=== PATIENT | female | born 1950 | race Caucasian/White ===

== ENCOUNTER 2018-06-26 16:21 | Emergency (ER) | payer OTHER ==
[2018-06-26 16:29] VITALS: BP 146/86; PULSE 106; TEMP 98.1; BMI 44.2
--- NOTE | 2018-06-26 16:38 | PDOC ---
Rapid Medical Evaluation Chief Complaint: Vaginal Bleeding Time Seen by Provider: 06/26/18 16:26 Medical Evaluation: Allergies Allergy/AdvReac Type Severity Reaction Status Date / Time No Known Allergies Allergy Verified 06/26/18 16:26 06/26/18 16:27 67 year old female with vaginal bleeding x 2.5 months send by women 2 women [facility] send for evaluation Pe: patient alert ox3 A: vaginal bleeding P: cbc cmp pt ptt TVUS type and screen patient to the er for further management of care. Discharge Disposition - Diagnosis Vaginal bleeding - Referrals - Patient Instructions - Post Discharge Activity
[2018-06-26 17:02] LABS: BASO % 1.6 % (0-2.0); EOS % 0.7 % (0-4.5); HEMATOCRIT 35.1 % (32.4-45.2); HEMOGLOBIN 11.6 GM/dL (10.7-15.3); LYMPH % 31.3 % (8-40); MCH 27.8 pg (25.7-33.7); MCHC 33.1 g/dl (32.0-36.0); MEAN CELL VOLUME 84.1 fl (80-96); MEAN PLT VOLUME 9.1 fl (7.5-11.1); MONO % 7.5 % (3.8-10.2); NEUT % 58.9 % (42.8-82.8); PLATELET COUNT 295 K/MM3 (134-434); RBC 4.18 M/mm3 (3.60-5.2); RDW 15.4 % (11.6-15.6)
[2018-06-26 17:16] LABS: INR 1.06 (0.83-1.09); PROTHROMBIN TIME (PATIENT) 12.5 SEC (9.7-13.0)
[2018-06-26 17:19] LABS: ACTIVATED PTT 37.5 SECONDS (25.2-36.5)
[2018-06-26 17:27] LABS: ALBUMIN 3.5 g/dl (3.4-5.0); ALK PHOS 64 U/L (45-117); ANION GAP 8 MMOL/L (8-16); BILIRUBIN,TOTAL 0.8 mg/dL (0.2-1); BLOOD UREA NITROGEN 13 mg/dL (7-18); CALCIUM 8.7 mg/dL (8.5-10.1); CHLORIDE 107 mmol/L (98-107); CO2 25 mmol/L (21-32); CREATININE 0.8 mg/dL (0.55-1.3); GLUCOSE,RANDOM 83 mg/dL (74-106); POTASSIUM 4.2 mmol/L (3.5-5.1); SGOT/AST 32 U/L (15-37); SGPT/ALT 31 U/L (13-61); SODIUM 141 mmol/L (136-145); TOT PROT 7.3 g/dl (6.4-8.2)
--- NOTE | 2018-06-26 17:49 | PDOC ---
History of Present Illness - General Chief Complaint: Vaginal Bleeding Stated Complaint: PCP SENT/ABD PAIN/VAG BLEEDING Time Seen by Provider: 06/26/18 16:26 History Source: Patient Exam Limitations: No Limitations - History of Present Illness Initial Comments: 06/26/18 17:40 67 yo female pmh of DVT (not on ASA or AC) and HTN presents to the ED with 2.5 months of vaginal bleeding. Pt states she has had constant BRB and clots with 5 pads per day over the last 2.5 months along with lightheadedness and diffuse abdominal pain. Pt presents from [facility] (Dr. Tubbs[facility] clinic after discussion of symptoms, was sent to ED for further workup. Pt states the abdominal pain is diffuse, constant, non radiating, made worse with movement. Pt states over the last 4 days she has noted blood dripping during showers. Denies hx of STD, Past History - Past Medical History Allergies/Adverse Reactions: Allergies Allergy/AdvReac Type Severity Reaction Status Date / Time No Known Allergies Allergy Verified 06/26/18 16:26 Home Medications: Ambulatory Orders NK [No Known Home Medication] 06/26/18 COPD: No HTN: Yes - Immunization History Immunization Up to Date: Yes - Suicide/Smoking/Psychosocial Hx Smoking History: Never smoked Hx Alcohol Use: No Drug/Substance Use Hx: No *Physical Exam - Vital Signs Last Vital Signs Temp Pulse Resp BP Pulse Ox 98.1 F 106 H 18 146/86 95 06/26/18 16:27 06/26/18 16:27 06/26/18 16:27 06/26/18 16:27 06/26/18 16:27 ED Treatment Course - LABORATORY CBC & Chemistry Diagram: 06/26/18 16:41 06/26/18 16:41 - ADDITIONAL ORDERS Additional order review: Laboratory Results 06/26/18 06/26/18 16:41 16:41 PT with INR 12.50 INR 1.06 PTT (Actin FS) 37.5 H Sodium 141 Potassium 4.2 Chloride 107 Carbon Dioxide 25 Anion Gap 8 BUN 13 Creatinine 0.8 Creat Clearance w eGFR 71.99 Random Glucose 83 Calcium 8.7 Total Bilirubin 0.8 AST 32 ALT 31 Alkaline Phosphatase 64 Total Protein 7.3 Albumin 3.5 06/26/18 16:41 RBC 4.18 MCV 84.1 MCHC 33.1 RDW 15.4 MPV 9.1 Neutrophils % 58.9 Lymphocytes % 31.3 Monocytes % 7.5 Eosinophils % 0.7 Basophils % 1.6 *DC/Admit/Observation/Transfer Diagnosis at time of Disposition: Vaginal bleeding - Discharge Dispostion Disposition: HOME Condition at time of disposition: Stable Decision to Admit order: No - Referrals Referrals: Ofelia Gilbert DO [Staff Physician] - - Patient Instructions Printed Discharge Instructions: DI for Vaginal Bleeding Additional Instructions: Dr. Gilbert is expecting you in office at 9 am 06/27/2018 for further care and likely biopsy. Dr. Gilbert also sent antibiotics and Motrin for pain control. Return to the ER for new or concerning symptoms including but not limited to: continued light headedness, loss of consciousness, excessive bleeding, excessive pain or high fevers. Thank you - Post Discharge Activity
--- NOTE | 2018-06-26 18:46 | PDOC ---
Documentation entered by Jack Can SCRIBE, acting as scribe for Julissa Alfonso DO. Julissa Alfonso DO: This documentation has been prepared by the Pamella newman Nirvannie, SCRIBE, under my direction and personally reviewed by me in its entirety. I confirm that the documentation accurately reflects all work, treatment, procedures, and medical decision making performed by me. Attending Attestation - Resident Resident Name: Charanjit Hoyt - ED Attending Attestation I have performed the following: I have examined & evaluated the patient, The case was reviewed & discussed with the resident, I agree w/resident's findings & plan - HPI HPI: 06/26/18 19:20 The patient is a 67 year old female, with a significant past medical history of DVT (not on AC) and HTN, who presents to the emergency department with, 2.5 months of worsening vaginal bleeding (bright red, 5 pads/day) with new onset of clotting and weakness. As per patient, she was seen by her [facility] Dr. Barbara CHAVEZ at which time she was advised to report to the ED for further evaluation. She denies recent fevers or chills. She denies recent nausea, vomit, diarrhea or constipation. She denies recent dysuria, frequency, urgency or hematuria. She denies recent chest pain or shortness of breath. Allergies: NKDA Familial History: Breast cancer (normal annual mammograms). - Physicial Exam PE: 06/26/18 19:20 Constitutional: Awake, alert, oriented. No acute distress. Head: Normocephalic. Atraumatic Eyes: PERRL. EOMI. Conjunctivae are not pale. ENT: Mucous membranes are moist and intact. Posterior pharynx without exudates or erythema. Uvula midline. Neck: Supple. Full ROM. No lymphadenopathy. Cardiovascular: Regular rate. Regular rhythm. S1, S2 regular. Distal pulses are 2+ and symmetric. Pulmonary/Chest: No evidence of respiratory distress. Clear to auscultation bilaterally No wheezing, rales or rhonchi. Abdominal: +Diffuse suprapubic tenderness. Soft and non-distended. No rebound , guarding or rigidity. No organomegaly. No palpable masses. Good bowel sounds. : +Diffuse pelvic tenderness on internal vaginal exam. Back: No CVA tenderness. Musculoskeletal: No edema. No cyanosis. No clubbing. Full range of motion in all extremities. No calf tenderness. Radial/pedal pulses are intact and 2+ bilaterally Skin: Skin is warm and dry. No petechiae. No purpura. Neurological: Alert and oriented to person, place, and time. Cranial nerves II -XII are grossly intact. Normal speech. Strength is grossly symmetric. No sensory deficits. Psychiatric: Good eye contact. Normal interaction, affect and behavior. - Medical Decision Making 06/26/18 18:38 I, Dr. Julissa Alfonso, DO, attest that this document has been prepared under my direction and personally reviewed by me in its entirety. I further attest, that it accurately reflects all work, treatment, procedures and medical decision -making performed by me. 06/26/18 18:38 a/p: 67yo female with vaginal bleeding x 2 months -seen by Dr. Walters PA today and sent for further eval -states passing clots and wearing 5 pads per day -c/o lower abd cramping -bleeding in the shower/dripping down her leg -c/o feeling lightheaded and dizzy -will send labs, tvus ordered from E -pt with diffuse ttp on vaginal exam and blood in the vault 06/26/18 18:45 h/h stable thickened endometrium concerning for poss neoplastic disease call placed to [facility] Call placed to Dr. Tubbs, made aware Dr. Gilbert is construction project assistant, EM resident Dr. Charanjit Hoyt discussed case to entirety. 06/26/18 19:36 resident discussed the case with Dr. Gilbert who will send rx for abx and motrin for the patient will give motrin in the ED pt will be seen by Dr. Gilbert tomorrow for a bx 06/26/18 19:54 uti will give dose of abx in the ED
[2018-06-26] MEDS ORDERED: SODIUM CHLORIDE 1,000 ML IV STA (18:51)
[2018-06-26] MEDS ORDERED: ACETAMINOPHEN 1000 MG/100 ML VIAL (NON FORMULARY) IVPB ONE (18:56)
[2018-06-26] MEDS ORDERED: IBUPROFEN 600 MG TABLET (FP) PO ONE ×2 (19:41→19:48)
[2018-06-26 19:45] LABS: URINE APPEARANCE Turbid; URINE BILIRUBIN 1+ (NEGATIVE); URINE COLOR Red; URINE GLUCOSE (UA) Negative (NEGATIVE); URINE KETONE Trace (NEGATIVE); URINE LEUK ESTERASE 2+ (NEGATIVE); URINE NITRITE Positive (NEGATIVE); URINE PROTEIN 3+ (NEGATIVE); URINE UROBILINOGEN 0.2 mg/dL (0.2-1.0)
[2018-06-26] MEDS ORDERED: CEPHALEXIN MONOHYDRATE 500 MG CAPSULE (UD) PO ONE (19:54)
[2018-06-26] MEDS ORDERED: CEPHALEXIN MONOHYDRATE 500 MG CAPSULE (UD) ONE (20:00)
[2018-06-27 00:41] LABS: EPI CELLS FEW /HPF (0-5/HPF); URINE RBC 75-100 /hpf (0-4); URINE WBC 30-35 /hpf (0-5)
== END 2018-06-26 20:07 | disposition home or self-care (01) ==
LOC: JER 16:21
DX: N93.8 Other specified abnormal uterine and vaginal bleeding (principal); N39.0 Urinary tract infection, site not specified; I10 Essential (primary) hypertension; Z86.718 Personal history of other venous thrombosis and embolism
CPT/HCPCS: 36415; 76830-TC; 80053; 81003; 85025; 85610; 85730; 86850; 86900; 86901; 99282-25; J7030

== ENCOUNTER 2018-07-15 11:25 | Inpatient (IN) | payer OTHER ==
[2018-07-14 12:45] VITALS: BMI 44.2
[2018-07-15] MEDS ORDERED: CEFAZOLIN 2 GM in DEXTROSE 5%-WATER - 100 ML IVPB ONE (11:58)
[2018-07-15] MEDS ORDERED: ceFAZolin SODIUM 1 GM VIAL ONE ×2 (12:01→17:30)
[2018-07-15] MEDS ORDERED: BUPIVACAINE HCL/PF 0.5% (5MG/ML) 10 ML VIAL ONE (13:19)
[2018-07-15] MEDS ORDERED: LIDOCAINE 1%-EPI 1:100,000 30 ML MDV IJ ONE (13:19)
[2018-07-15] MEDS ORDERED: INDOCYANINE GREEN 25 MG/10 ML VIAL IVPUSH ONE ×2 (13:19→14:37)
--- NOTE | 2018-07-15 14:13 | HP ---
History & Physical Update - History History: No Change - Physical Physical: No Change - Assessment Assessment: No Change - Plan Plan: No Change
[2018-07-15] MEDS ORDERED: ceFAZolin 2 GRAM PREMIX BAG IVPB ONE (14:30)
[2018-07-15] MEDS ORDERED: BUPIVACAINE HCL/PF 0.5% (5MG/ML) 10 ML VIAL IJ ONE (15:19)
[2018-07-15] MEDS ORDERED: ROCURONIUM BROMIDE 50 MG/5 ML VIAL ONE (16:36)
[2018-07-15] MEDS ORDERED: KETOROLAC TROMETHAMINE 30 MG/1 ML VIAL ONE (17:24)
[2018-07-15] MEDS ORDERED: GLYCOPYRROLATE 0.2 MG/1 ML VIAL ONE (17:26)
[2018-07-15] MEDS ORDERED: ceFAZolin SODIUM 1 GM VIAL IVPB ONE (17:30)
[2018-07-15] MEDS ORDERED: ONDANSETRON 4 MG/2 ML VIAL IVPUSH PRN (18:19)
[2018-07-15] MEDS ORDERED: PROMETHAZINE HCL 25 MG/1 ML VIAL IVPUSH PRN (18:19)
--- NOTE | 2018-07-15 18:20 | SURG ---
Surgery Dental Equipment Repairer Note Dental Equipment Repairer: Baldomero Hardy PA-C Date of Service: 07/15/18 Diagnosis: Endometrial Cancer Procedure: Robotic assisted hysterectomy --> converted to open (secondary to size of uterus ), bilateral salpingoopherectomy with pelvic lymph node dissection I was present for the entirety of the operative procedure. For further detail, please refer to operative report. Visit type - Case Type Case Type: Scheduled - New patient This patient is new to me today: Yes Date on this admission: 07/15/18
[2018-07-15] MEDS ORDERED: HYDROmorphone HCL CARPU-JECT 2 MG/1 ML DISP.SYRIN IVPB PRN (18:27)
[2018-07-15] MEDS ORDERED: ACETAMINOPHEN 1000 MG/100 ML VIAL (NON FORMULARY) IVPB ONE (18:28)
[2018-07-15] MEDS ORDERED: GABAPENTIN 300 MG CAPSULE (FP) PO SCH (18:30)
[2018-07-15] MEDS: LACTATED RINGERS SOLUTION 1,000 ML IV SCH (19:33)
[2018-07-15] MEDS: GABAPENTIN 300 MG CAPSULE (FP) PO SCH (21:33)
--- NOTE | 2018-07-15 21:36 | OP ---
DATE OF OPERATION: 07/15/2018 PREOPERATIVE DIAGNOSES: 1. Endometrial cancer. 2. Morbid obesity. POSTOPERATIVE DIAGNOSES: 1. Endometrial cancer. 2. Morbid obesity. PROCEDURE: Robotic-assisted bilateral sentinel pelvic and paraaortic lymph node dissection and exploratory laparotomy, total abdominal hysterectomy, bilateral salpingo-oophorectomy, and omental biopsy. SURGEON: Faiza Beard MD CERAMIC COATER: SCOTT Green ANESTHESIA: General endotracheal and local. ESTIMATED BLOOD LOSS: 100 mL. COMPLICATIONS: None. INDICATIONS: This is a 67-year-old with history of postmenopausal vaginal bleeding. Pelvic ultrasound on June 26, 2018, showed the uterus to measure 10 x 9 x 7 cm, the endometrial stripe measuring 2.3 cm, right ovary normal, left ovary unable to be visualized. 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 CT scan of the chest, abdomen, and pelvis was performed on July 09, 2018. There were 2 small pericardial lymph nodes, 7 and 8 mm of uncertain significance and a 2.5-cm hypodense nodule within the subcutaneous fat of the mid back and the rest of the lung goldstein appeared clean. There were enlarged paraaortic lymph nodes measuring 2.5 cm in the left paraaortic area and a 2.3-cm lymph node in the paraaortic paracaval chain and a 2.2-cm lymph node anterior to the aorta. The patient was counseled regarding surgical management. Risks, benefits, indications, and alternatives were discussed with the patient. All questions were answered. Informed consent was signed. FINDINGS: Cervix: No lesions. Vagina: No lesions. Intraabdominal findings: Normal liver edge. Normal diaphragm. Normal abdomen. Normal appendix. Uterus approximately 10 weeks' size and globular appearing. Bilateral tubes and ovaries appeared normal. There were filmy adhesions in the posterior cul-de-sac as well as anterior to the bladder; an enlarged right paraaortic lymph node was seen. There were no enlarged pelvic lymph nodes. Bilateral sentinel nodes were able to be removed. There was no ascites and no evidence of intraabdominal disease. DESCRIPTION OF PROCEDURE: The patient was taken to the operating room, placed in the dorsal supine position. General endotracheal anesthesia was obtained without difficulty. She was placed in the dorsal lithotomy position in Patrick stirrups and prepped and draped in normal sterile fashion. Stacy catheter was placed in the bladder. Speculum was placed in the vagina. The cervix was gently grasped with a single-tooth tenaculum, and 4 mL of 1.25 mg/mL indocyanine green dye was injected into the cervix at 3 and 9 o'clock superficially. A ComQi uterine manipulator was placed, and the tenaculum and speculum were then removed. Attention was turned to the patient's abdomen and 5 mL of 0.5% Marcaine was injected into the umbilicus and an 8-mm incision was made with a scalpel. While tenting the anterior abdominal wall, the Veress needle was inserted intra-abdominally. The abdomen was insufflated with CO2 gas, and an 8-mm trocar was placed. Intra-abdominal placement was confirmed by direct visualization with the laparoscope. Additional 8-mm trocar was placed in the left mid-quadrant and left lateral quadrant, and an 8-mm port was placed in the right mid quadrant. A 5-mm AirSeal port was placed in the right lower quadrant. All trocars were placed under direct visualization after injecting 0.5% Marcaine. A thorough exam of the abdomen and pelvis revealed the above-noted findings. Peritoneal washings were taken using normal saline. The adhesions around the uterus were lysed. The right adnexa was elevated. The right ureter was noted to be well away from the field of dissection. The right infundibulopelvic ligament was clamped, cauterized, and transected. This was carried to the broad ligament and the round ligament and the vesicouterine peritoneum anteriorly. The bladder was dissected off the anterior cervix and upper vagina. The right retroperitoneum was opened, and the right external iliac lymph node was seen, which was removed and handed off the field. Excellent hemostasis was seen. The left adnexa was elevated. The left ureter was noted to be well away from the field of dissection. The left infundibulopelvic ligament was clamped, cauterized, and transected. This was carried to the broad ligament and the round ligament and the vesicouterine peritoneum anteriorly. The bladder was dissected off the anterior cervix and upper vagina. Uterine arteries bilaterally were skeletonized. They were clamped, cauterized, and transected. The left retroperitoneum was opened and a large left external iliac artery was seen and this was removed and handed off the field. The right retroperitoneum was opened cephalad, and the right paraaortic lymph node, which was markedly enlarged, was removed and handed off the field. This node fluoresced bright green with Firefly. The left retroperitoneum was opened. A left paraaortic sentinel node could not be seen in this area. A left paraaortic lymph node was removed from approximately 3-4 cm above the aortic bifurcation. This was handed off the field. Excellent hemostasis was seen, and Surgicel was placed for added assurance. Due to the difficulty in visualizing the cervicovaginal margin and the bulkiness of the uterus which encompassed the entire pelvis, the decision was made to perform a laparotomy incision to complete the hysterectomy as it was not feasible for the uterus to be able to be passed through the vagina. All instruments were removed from the patient's abdomen. All trocars were removed. Skin was closed with 4-0 Monocryl and Dermabond was applied. The Pfannenstiel skin incision was made with scalpel and then carried down to the underlying fascia. The fascia was opened in the midline. The rectus muscles were dissected off the fascia. Peritoneum was entered sharply. This incision was extended inferiorly and superiorly with excellent visualization of the bladder. An Chapincito retractor was placed, and the bowel was packed away with moist laparotomy sponges. Two peon clamps were placed on the uterine cornua. The cardinal ligaments were serially clamped, cauterized, and transected. Uterosacral ligaments were clamped, cauterized, and transected. The bladder was dissected off the anterior cervix. Two Zeppelin clamps were placed distally across the cervix. Uterus, cervix, ovaries, and tubes were amputated from the vagina and handed off the field. The vaginal cuff angles were closed with Emily stitches of 0 Vicryl, and the remainder of the vaginal cuff was closed in a running locked fashion using 0 Vicryl. Excellent hemostasis was seen. Pelvis was thoroughly irrigated with sterile water. Surgicel was placed on the cuff for added assurance. The omentum was brought into the incision, and using the LigaSure device, the omental biopsy was performed of the distal omentum. Excellent hemostasis was seen. All sponges and the retractor were removed from the patient's abdomen. Sponge, needle, and instrument counts were correct x2. The peritoneum was closed with 2-0 Vicryl in a running continuous fashion. Fascia was closed with number 1 Vicryl in a running continuous fashion. Subcutaneous fat was irrigated with saline, and the subcutaneous fat was closed with 3-0 Vicryl. Skin was closed with 3-0 V-Loc suture in a running continuous fashion. Dermabond was placed over this. Sponge, needle, and instrument counts were correct x2. The patient was extubated and transferred in stable condition to the PACU. Velma Martinez/[id number]
[2018-07-15] MEDS: DOCUSATE SODIUM 100 MG CAPSULE (FP) PO SCH (21:42)
[2018-07-16] MEDS: KETOROLAC TROMETHAMINE 15 MG/ML VIAL IVPUSH SCH ×5 (00:12→20:25)
[2018-07-16] MEDS ORDERED: CEFAZOLIN 2 GM in DEXTROSE 5%-WATER - 100 ML IVPB SCH (02:00)
[2018-07-16] MEDS: LACTATED RINGERS SOLUTION 1,000 ML IV SCH ×2 (04:00→20:28)
[2018-07-16] MEDS: HYDROmorphone HCl 2 MG/ML VIAL IVPB PRN ×2 (04:49→10:17)
[2018-07-16] MEDS: GABAPENTIN 300 MG CAPSULE (FP) PO SCH ×3 (05:46→22:22)
[2018-07-16] MEDS: DOCUSATE SODIUM 100 MG CAPSULE (FP) PO SCH ×3 (05:50→22:22)
[2018-07-16] MEDS ORDERED: PATIENT'S OWN MEDICATION (NON-FORMULARY) (Amlodipine Besylate 10 MG) PO SCH (10:00)
[2018-07-16] MEDS: metoPROLOL SUCCINATE 25 MG TAB.SR.24H (FP) PO SCH (10:02)
[2018-07-16] MEDS: HYDROCHLOROTHIAZIDE 25 MG TABLET (FP) PO SCH (10:02)
[2018-07-16] MEDS: ENOXAPARIN NA (PORCINE) 40 MG/0.4 ML DISP.SYRIN SQ SCH (10:03)
--- NOTE | 2018-07-16 11:06 | PN ---
Progress Note (short form) - Note Progress Note: 67yo F s/p Robotic converted to open hysterectomy POD 1, pt seen and examined at bedside. Pt complains of some moderate abd pain. Pt denies fever, chills, n /v. Pt stil has sanchez in place. Last Vital Signs Temp Pulse Resp BP Pulse Ox 97.9 F 93 H 17 130/77 95 07/16/18 09:18 07/16/18 09:18 07/16/18 09:18 07/16/18 09:18 07/15/18 22:01 PE: Gen; A&O x3 Resp: breathing comfortably Abd: soft, mild abd pain, nondistended, incisions are clean with no erythema or discharge. Ext: no edema Problem List - Problems (1) Endometrial cancer Assessment/Plan: Plan -pt appears to be doing well, will DC sanchez -encourage OOB/ambulate -pain control -regular diet -dvt ppx Code(s): C54.1 - MALIGNANT NEOPLASM OF ENDOMETRIUM
--- NOTE | 2018-07-16 11:40 | PN ---
Progress Note (short form) - Note Progress Note: Anesthesia POD#1 S/P Robotic/Open Hysterectomy with BSO under GA VSS,no N/V,pain is under control. No complications to anesthesia seen. Steffanie Lemons MD.
[2018-07-16] MEDS: amLODIPine BESYLATE 10 MG TABLET (FP) PO SCH (12:46)
[2018-07-17] MEDS: KETOROLAC TROMETHAMINE 15 MG/ML VIAL IVPUSH SCH ×2 (00:30→06:00)
[2018-07-17] MEDS: HYDROmorphone HCl 2 MG/ML VIAL IVPB PRN (04:18)
[2018-07-17] MEDS: DOCUSATE SODIUM 100 MG CAPSULE (FP) PO SCH (06:00)
[2018-07-17] MEDS: GABAPENTIN 300 MG CAPSULE (FP) PO SCH (06:00)
[2018-07-17 08:22] VITALS: BP 132/67; PULSE 75; TEMP 97.6
--- NOTE | 2018-07-17 08:48 | DS ---
Physical Exam: SUBJECTIVE: Patient seen and examined OBJECTIVE: Vital Signs Temperature 97.6 F 07/17/18 08:21 Pulse Rate 75 07/17/18 08:21 Respiratory Rate 18 07/17/18 08:21 Blood Pressure 132/67 07/17/18 08:21 O2 Sat by Pulse Oximetry (%) 95 07/15/18 22:01 PHYSICAL EXAM GENERAL: The patient is awake, alert, and fully oriented, in no acute distress. HEAD: Normal with no signs of trauma. EYES: PERRL, extraocular movements intact, sclera anicteric, conjunctiva clear. ENT: Ears normal, nares patent, oropharynx clear without exudates, moist mucous membranes. NECK: Trachea midline, full range of motion, supple. ABDOMEN: Soft, mild diffuse tenderness, nondistended, no guarding, no rebound, no hepatosplenomegaly, no masses. Incisions are clean with no erythema or discharge. EXTREMITIES: warm, well-perfused, no edema. NEUROLOGICAL: Cranial nerves II through XII grossly intact. Normal speech, gait not observed. PSYCH: Normal mood, normal affect. SKIN: Warm, dry, normal turgor, no rashes or lesions noted. LABS CBC,CMP CA 125 Antigen 131.0 U/mL (0.0-38.1) H 07/15/18 11:36 HOSPITAL COURSE: 67yo F presented to the hospital for scheduled robotic assisted hysterectomy for endometrial cancer. During the surgery pt had to be converted to open due to uterus size, but otherwise no other complications or significant bleeding. Pt was transfered to the floor for pain control and observation. While hospitalized pt had no acute events. Pt currently ambulating and urinating well. Pt abd pain is controlled and pt is tolerating PO. Pt will be discharged home with follow up with Dr. Beard in 2 weeks. Date of Admission:07/15/18 Date of Discharge: 07/17/18 Minutes to complete discharge: 20 Visit type - Case Type Case Type: Scheduled - Emergency Emergency Visit: No - New patient This patient is new to me today: No - Critical Care Critical Care patient: No
[2018-07-17] MEDS: HYDROCHLOROTHIAZIDE 25 MG TABLET (FP) PO SCH (09:32)
[2018-07-17] MEDS: ENOXAPARIN NA (PORCINE) 40 MG/0.4 ML DISP.SYRIN SQ SCH (09:32)
[2018-07-17] MEDS: amLODIPine BESYLATE 10 MG TABLET (FP) PO SCH (09:33)
[2018-07-17] MEDS: metoPROLOL SUCCINATE 25 MG TAB.SR.24H (FP) PO SCH (09:33)
--- NOTE | 2018-07-17 11:53 | PATH ---
Cytology Non-Gynecological Report Patient Name: RAFFI SALINAS [facility]. Rec. #: [id number] /Age/Gender: 1950 (Age: 67) / F Account: [id number] Location: [facility] OBS/[place] OR GLACIER GUIDE Taken: 07/16/2018 Received: 07/17/2018 Reported: 07/17/2018 Physicians: Faiza Beard MD Specimen(s) Received PELVIC WASHING Clinical History Endometrial cancer Final Diagnosis PELVIC WASHING FOR CYTOLOGY: SATISFACTORY FOR EVALUATION. NO MALIGNANT CELLS IDENTIFIED. MESOTHELIAL CELLS IN A BACKGROUND OF RED BLOOD CELLS, FEW NEUTROPHILS AND FEW LYMPHOCYTES PRESENT. Comment: See concurrent material ([id number]). Electronically Signed Mary Avila M.D. Gross Description Approximately 50 cc of pink fluid received fresh. One cytofunnel prepared and Pap stained. One cellblock prepared.
--- NOTE | 2018-07-22 18:08 | PATH ---
Surgical Pathology Report Patient Name: RAFFI SALINAS [facility]. Rec. 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 EXTERNAL ILIAC SENTINEL LYMPH NODE, RIGHT, EXCISION: ONE LYMPH NODE NEGATIVE FOR CARCINOMA (0/1). B. COMMON ILIAC SENTINEL LYMPH NODE, RIGHT, EXCISION: ONE LYMPH NODE WITH METASTATIC CARCINOMA (1/1). TUMOR DEPOSIT MEASURES 1 CM IN GREATEST MICROSCOPIC DIMENSION. NO EXTRANODAL EXTENSION IDENTIFIED. C. PARA-AORTIC SENTINEL LYMPH NODE, RIGHT, EXCISION: TWO OF TWO LYMPH NODES WITH METASTATIC CARCINOMA (2/2). LARGEST TUMOR DEPOSIT MEASURES 1.1 CM IN GREATEST DIMENSION. FOCAL EXTRANODAL EXTENSION IDENTIFIED. D. EXTERNAL ILIAC SENTINEL LYMPH NODE, LEFT, EXCISION: ONE OF THREE LYMPH NODES WITH METASTATIC CARCINOMA (1/3). TUMOR DEPOSIT MEASURES 2 MM IN GREATEST DIMENSION. NO EXTRANODAL EXTENSION IDENTIFIED. E. PARA-AORTIC SENTINEL LYMPH NODE, LEFT, EXCISION: ONE LYMPH NODE NEGATIVE FOR CARCINOMA (0/1). F. FALLOPIAN TUBE AND OVARY, RIGHT, SALPINGO-OOPHORECTOMY: OVARY WITH CYSTIC FOLLICLES. FALLOPIAN TUBE WITH PARATUBAL CYSTS AND ENDOSALPINGOSIS. G. UTERUS, CERVIX, LEFT FALLOPIAN TUBE AND OVARY, HYSTERECTOMY AND SALPINGO-OOPHORECTOMY: HIGH GRADE SEROUS CARCINOMA, MEASURING 7 x 6 x 3 CM IN GREATEST DIMENSION (GROSS MEASUREMENT). CARCINOMA INVADES >50% OF MYOMETRIAL WALL. CERVICAL STROMAL INVASION IS NOT IDENTIFIED. EXTENSIVE LYMPHOVASCULAR INVASION IDENTIFIED. NO PARAMETRIAL INVOLVEMENT IDENTIFIED. ADDITIONAL AREAS OF ADENOMYOSIS AND FOCALLY CALCIFIED LEIOMYOMA(TA). LEFT OVARY WITH CYSTIC FOLLICLES. LEFT FALLOPIAN TUBE WITH PARATUBAL CYST AND P53 SIGNATURE. SEE COMMENT. H. OMENTUM, OMENTECTOMY: METASTATIC CARCINOMA. TUMOR DEPOSIT MEASURES 6 MM IN GREATEST MICROSCOPIC DIMENSION. AJCC PATHOLOGIC STAGE (pTNM): pT1b pN2a(sn) pM1. Comment: The carcinoma show pseudoglandular and papillary features, focal clear cell change, and focal squamous differentiation. Greater than 50% myometrial invasion is identified, However, exact measurement of invasion is not possible since the endometrium is replaced by tumor. Immunohistochemical stains performed in the hysterectomy (G12) and omental deposit (H2) show the tumor is diffusely positive for p53, p16; while ER shows focal weak staining. Proliferative marker, Ki-67 is high. Overall histomorphology and immunophenotype is consistent with High grade serous carcinoma. P53 stains performed on sections of the fallopian tube (G6 and F3) show rare p53 positivity in the left fallopian tube consistent with p53 signature. Concurrent pelvic washing is negative ([id number]). Immunohistochemical stains performed at [place], [place] ([id number]) and interpreted at [facility]. Comments Endometrial Carcinoma :Surgical Pathology Cancer Case Summary Based on AJCC 8th edition Procedure _X__ Total hysterectomy and bilateral salpingo-oophorectomy _X__ Omentectomy Tumor Size Greatest dimension: 7 x 6 x 3 cm Histologic Type _X__ Serous carcinoma Myometrial Invasion _X__ Present _X__ Exact depth of myometrial invasion cannot be determined (explain): endometrium replaced by tumor Percentage depth of myometrial invasion _X__ Estimated greater than or equal to 50% myometrial invasion Uterine Serosa Involvement _X__ Not identified Cervical Stromal Involvement _X__ Not identified Other Tissue/Organ Involvement _X__ Omentum Lymphovascular Invasion _X__ Present, extensive Regional Lymph Nodes Pelvic Node Examination Number of Pelvic Nodes with Macrometastasis (greater than 2 mm): 2 Number of Pelvic Nodes with Micrometastasis (greater than 0.2 mm and up to 2 mm): 0 Number of Pelvic Nodes with Isolated Tumor Cells (0.2 mm or less): 0 Laterality of Pelvic Node(s) with Tumor (if applicable): Right and Left Total Number of Pelvic Nodes Examined (sentinel and non-sentinel): 5 Number of Pelvic [place] Nodes Examined: 5 Laterality of Pelvic Node(s) Examined: Right and Left Para-aortic Lymph Nodes Para-aortic Node Examination Number of Para-aortic Nodes with Macrometastasis (greater than 2 mm): 2 Number of Para-aortic Nodes with Micrometastasis (greater than 0.2 mm and up to 2 mm): 0 Number of Para-aortic Nodes with Isolated Tumor Cells (0.2 mm or less):0 Laterality of Para-aortic Node(s) with Tumor (if applicable): Right Total Number of Para-aortic Nodes Examined (sentinel and non-sentinel): 3 Number of Para-aortic [place] Nodes Examined: 3 Laterality of Para-aortic Node(s) Examined: Right and Left Pathologic Stage Classification (pTNM, AJCC 8th Edition) Primary Tumor (pT) _X__ pT1b: Tumor invading one-half or more of the myometrium Regional Lymph Nodes (pN) Modifier _X__ (sn): [place] lymph node biopsy is performed. Category (pN) _X__ pN2a: Regional lymph node metastasis (greater than 2 mm in diameter) to para-aortic lymph nodes, with or without positive pelvic lymph nodes. Distant Metastasis (pM) _X__ pM1: Distant metastasis (includes metastasis to inguinal lymph nodes, intraperitoneal disease, lung, liver, or bone. It excludes metastasis to pelvic or para-aortic lymph nodes, vagina, uterine serosa, or adnexa) Specify site(s), if known: Omentum Electronically Signed Mary Avila M.D. Gross Description A. Received in formalin, labeled "right external iliac sentinel lymph node" are two portions of yellow soft tissue which contain 2 possible lymph nodes. The largest possible lymph node measures 0.4 cm. The entire specimens are submitted in two cassettes. A1- 2 possible nodes; A2- Remainder fatty tissue. B. Received in formalin, labeled "right common iliac sentinel lymph node" is a portion of yellow soft tissue which contains one possible lymph node which measures 1.0 cm. The entire specimens are submitted in two cassettes. B1- One bisected node, B2- remainder of fatty tissue. C. Received in formalin, labeled "right paraaortic sentinel lymph node" is an aggregate of yellow soft tissue (2.5 x 2.5 x 0.4 cm) which contains 2 possible lymph nodes. The entire specimens are submitted in three cassettes. C1- One possible whole node; C2- One possible whole node; C3: The remaining fatty tissue. D. Received in formalin, labeled "left external iliac sentinel lymph node" are two portions of yellow soft tissue which contains 2 lymph nodes. The largest node measures 1.2 cm. The entire specimens are submitted in two cassettes. D1- 2 possible whole nodes; D2- Remainder fatty tissue. E. Received in formalin, labeled "left paraaortic sentinel lymph node" is a nodular lesion with adjacent fatty tissue measuring 0.5 cm in greatest dimension. The specimen is entirely submitted one cassette. F. Received in formalin, labeled "right tube and ovary" is a portion of fallopian tube with fimbria measuring 6 cm in length and 0.5 cm diameter. There are multiple paratubal cysts, measuring 0.5 cm in greatest dimension. The right ovary measures 2.3 x 1.5 x 1.2 cm, and has a smooth outer surface. Sectioning reveals a small cystic lesion measuring 0.3 cm. No necrosis are hemorrhage present. [employer] sections submitted in 4 cassettes. F1-2- Ovary; F3- Tube with fimbria; F4- Sections of fallopian tube. G. Received in formalin, labeled "uterus, cervix, left tube and ovary" is a hysterectomy specimen, with attached left tube and ovary, weighing 338 grams and measuring 12 cm from fundus to the uterine stump, 9 cm from cornu to cornu and 5.5 cm from posterior to anterior surface. The anterior serosal surface is focally disrupted. A nodular calcified lesion (2 cm in greatest dimension) located at the anterior serosal surface and have associated fibrous adhesions. The endometrial cavity measures 7 cm in length and 6.5 cm in diameter, and entirely occupied by a necrotic mass. The mass grossly invades >50% of the myometrium. Uninvolved myometrium measures up to 0.5 cm in thickness. The mass appears to extend to the lower uterine segment, however the endocervical canal appears to be free the tumor. The endocervical measures 3.4 cm in length and 3 cm in diameter, with smooth unremarkable mucosa. A portion of the left fallopian tube measures 6 cm in length and diameter of 0.4 cm. Left ovary measures 2.3 x 1.5 x 1.2 cm and appear grossly unremarkable. [employer] sections submitted in 20 cassettes. G1- Left parametrium; G2- Right parametrium; G3-4- Left ovary, entirely submitted; G5: Left fallopian tube fimbria; G6: Left fallopian tube; G7-8- Posterior cervix and lower uterine section, consecutive sections; G9-10- Posterior cervix and lower uterine section, consecutive sections; G11-12- Posterior endometrium (tumor) with myometrium, entire thickness; G13 -15: Anterior cervix and uterine section, consecutive sections; G16: Anterior cervix; G17: Anterior endometrium; G18: Serosal nodule with calcification, G19-20 additional sections of tumor. H. Received in formalin, labeled "omentum" is a portion of fatty tissue consistent with omentum, measuring 9.0 x 3.5 x 0.6 cm. A nodular lesion measuring 0.4 cm dimension is noted. [employer] sections including the nodular lesion are submitted in 2 cassettes. MIRIAM/07/16/2018 indira07/16/2018
== END 2018-07-17 10:25 | disposition home or self-care (01) | DRG 735 ==
LOC: JASUSAT 11:25 → EDSTATUS 13:30 → JSAMEDAYSX 18:20 → J3W 20:37
PROVIDERS: ADMIT Obstetrics & Gynecology Gynecologic Oncology; ATTEND Obstetrics & Gynecology Gynecologic Oncology
PROC: 07TD4ZZ Resection of Aortic Lymphatic, Percutaneous Endoscopic Approach (ICD-10-PCS; 2018-07-15)
PROC: 0UT74ZZ Resection of Bilateral Fallopian Tubes, Percutaneous Endoscopic Approach (ICD-10-PCS; 2018-07-15)
PROC: 0UT24ZZ Resection of Bilateral Ovaries, Percutaneous Endoscopic Approach (ICD-10-PCS; 2018-07-15)
PROC: 07BC4ZX Excision of Pelvis Lymphatic, Percutaneous Endoscopic Approach, Diagnostic (ICD-10-PCS; 2018-07-15)
PROC: 8E0W4CZ Robotic Assisted Procedure of Trunk Region, Percutaneous Endoscopic Approach (ICD-10-PCS; 2018-07-15)
PROC: 0DBU4ZX Excision of Omentum, Percutaneous Endoscopic Approach, Diagnostic (ICD-10-PCS; 2018-07-15)
PROC: 0UT94ZZ Resection of Uterus, Percutaneous Endoscopic Approach (ICD-10-PCS; principal; 2018-07-15 13:30)
DX: C54.1 Malignant neoplasm of endometrium (principal); D25.9 Leiomyoma of uterus, unspecified; R59.0 Localized enlarged lymph nodes
CPT/HCPCS: 36415; 74018-TC-FY; 86304; 86850; 86900; 86901; 88108; 88305-TC; 88307-TC; 88309-TC; 94010; 94760; J0131

== ENCOUNTER 2018-08-19 07:49 | Day surgery (SDC) | payer OTHER | END 2018-08-19 13:28 | disposition home or self-care (01) | LOC: JRADIR 07:49 ==

== ENCOUNTER 2018-08-21 06:28 | Day surgery (SDC) | payer OTHER ==
[2018-08-21] MEDS ORDERED: SODIUM CHLORIDE 500 ML IV ONE (09:00)
[2018-08-21 09:24] LABS: BASO % 1.1 % (0-2.0); EOS % 0.3 % (0-4.5); HEMATOCRIT 38.2 % (32.4-45.2); HEMOGLOBIN 12.3 GM/dL (10.7-15.3); LYMPH % 15.8 % (8-40); MCHC 32.1 g/dl (32.0-36.0); MEAN CELL VOLUME 80.9 fl (80-96); MEAN PLT VOLUME 8.9 fl (7.5-11.1); MONO % 1.2 % (3.8-10.2); NEUT % 81.6 % (42.8-82.8); PLATELET COUNT 265 K/MM3 (134-434); RBC 4.73 M/mm3 (3.60-5.2); RDW 15.7 % (11.6-15.6); WHITE BLOOD COUNT 7.9 K/mm3 (4.0-10.0)
[2018-08-21 09:44] LABS: ALBUMIN 3.5 g/dl (3.4-5.0); BILIRUBIN,DIRECT 0.1 mg/dL (0.0-0.2); BILIRUBIN,TOTAL 0.4 mg/dL (0.2-1); CALCIUM 8.7 mg/dL (8.5-10.1); CREATININE 0.9 mg/dL (0.55-1.3); MAGNESIUM 2.1 mg/dL (1.8-2.4); POTASSIUM 4.1 mmol/L (3.5-5.1); TOT PROT 7.2 g/dl (6.4-8.2)
[2018-08-21] MEDS ORDERED: DEXAMETHASONE SODIUM PHOSPHATE 20 MG, DIPHENHYDRAMINE 50 MG in SODIUM CHLORIDE 100 ML IVPB ONE (10:30)
[2018-08-21] MEDS ORDERED: FOSAPREPITANT DIMEGLUMINE 150 MG in SODIUM CHLORIDE 145 ML IVPB ONE (10:30)
[2018-08-21] MEDS ORDERED: PACLITAXEL IVPB ONE ×2 (10:30→11:00)
[2018-08-21] MEDS ORDERED: FAMOTIDINE 20 MG/50 ML IVPB 20 MG/50 ML MG IVPB ONE (10:30)
[2018-08-21] MEDS ORDERED: SODIUM CHLORIDE 0.9% IVPB ONE ×2 (10:30→11:00)
[2018-08-21] MEDS ORDERED: PALONOSETRON HCL 0.25 MG/5 ML VIAL IVPUSH ONE (10:30)
[2018-08-21] MEDS ORDERED: CARBOPLATIN IVPB ONE ×2 (10:30→14:00)
[2018-08-21] MEDS ORDERED: SODIUM CHLORIDE IVPB ONE ×2 (10:30→14:00)
[2018-08-21] MEDS ORDERED: metoPROLOL SUCCINATE 25 MG TAB.SR.24H (FP) PO ONE (11:42)
[2018-08-21] MEDS ORDERED: SILVER SULFADIAZINE 1% TOP CREAM 50 GM JAR TP SCH (15:15)
[2018-08-21 18:58] VITALS: TEMP 97.8
[2018-08-21] MEDS ORDERED: PORTA CATH FLUSH 10 ML IVPUSH ONE (18:58)
[2018-08-21 19:01] VITALS: BP 176/95; PULSE 88
== END 2018-08-21 19:00 | disposition home or self-care (01) ==
LOC: JONCCHEMO 06:28 → J7W 10:31 → JONCCHEMO 19:00
PROVIDERS: ATTEND Internal Medicine Hematology & Oncology
DX: Z51.11 Encounter for antineoplastic chemotherapy (principal); C54.1 Malignant neoplasm of endometrium
CPT/HCPCS: 36415; 80048; 80076; 83735; 85025; 96361; 96367; 96375; 96413; 96415; 96417; J1453; J2469

== ENCOUNTER 2018-08-23 09:29 | Day surgery (SDC) | payer OTHER ==
[~2018-08-23 09:29] MED LIST: PEGFILGRASTIM 6 MG/0.6 ML DISP.SYRIN SQ ONE
[2018-08-23 10:26] VITALS: BP 134/78; PULSE 80; TEMP 98.2
== END 2018-08-23 13:22 | disposition home or self-care (01) ==
LOC: JONCCHEMO 09:29 → J7W 09:29 → JONCCHEMO 13:22
PROVIDERS: ATTEND Internal Medicine Hematology & Oncology
PROC: 3E013GC Introduction of Other Therapeutic Substance into Subcutaneous Tissue, Percutaneous Approach (ICD-10-PCS; principal; 2018-08-23)
DX: C54.1 Malignant neoplasm of endometrium (principal); Z76.89 Persons encountering health services in other specified circumstances
CPT/HCPCS: 96372; J2505

== ENCOUNTER 2018-09-11 05:37 | Day surgery (SDC) | payer OTHER ==
[2018-09-11] MEDS ORDERED: SODIUM CHLORIDE 500 ML IV ONE (09:00)
[2018-09-11] MEDS ORDERED: PALONOSETRON HCL 0.25 MG/5 ML VIAL IVPUSH ONE (10:00)
[2018-09-11] MEDS ORDERED: DEXAMETHASONE SODIUM PHOSPHATE 20 MG, DIPHENHYDRAMINE 50 MG in SODIUM CHLORIDE 100 ML IVPB ONE (10:00)
[2018-09-11] MEDS ORDERED: FAMOTIDINE 20 MG/50 ML IVPB 20 MG/50 ML MG IVPB ONE (10:00)
[2018-09-11] MEDS ORDERED: FOSAPREPITANT DIMEGLUMINE 150 MG in SODIUM CHLORIDE 150 ML IVPB ONE (10:00)
[2018-09-11] MEDS ORDERED: PACLITAXEL IVPB ONE (10:30)
[2018-09-11] MEDS ORDERED: SODIUM CHLORIDE IVPB ONE ×2 (10:30→13:30)
[2018-09-11 10:38] LABS: BASO % 1.2 % (0-2.0); HEMATOCRIT 36.5 % (32.4-45.2); LYMPH % 16.2 % (8-40); MCH 26.2 pg (25.7-33.7); MCHC 32.8 g/dl (32.0-36.0); MEAN CELL VOLUME 79.8 fl (80-96); MEAN PLT VOLUME 8.8 fl (7.5-11.1); MONO % 1.8 % (3.8-10.2); NEUT % 80.8 % (42.8-82.8); RBC 4.58 M/mm3 (3.60-5.2); RDW 18.1 % (11.6-15.6); WHITE BLOOD COUNT 8.8 K/mm3 (4.0-10.0)
[2018-09-11 10:55] LABS: PLATELET COUNT 286 K/MM3 (134-434)
[2018-09-11 11:13] LABS: BILIRUBIN,TOTAL 0.6 mg/dL (0.2-1); BLOOD UREA NITROGEN 16.8 mg/dL (7-18); CALCIUM 9.1 mg/dL (8.5-10.1); CREATININE 0.9 mg/dL (0.55-1.3); MAGNESIUM 2.1 mg/dL (1.8-2.4); POTASSIUM 4.3 mmol/L (3.5-5.1); TOT PROT 7.4 g/dl (6.4-8.2)
[2018-09-11] MEDS ORDERED: CARBOPLATIN IVPB ONE (13:30)
[2018-09-11 16:50] VITALS: TEMP 98.7
[2018-09-11 18:28] VITALS: BP 155/79; PULSE 90
== END 2018-09-11 18:37 | disposition home or self-care (01) ==
LOC: JONCCHEMO 05:37 → J7W 10:59 → JONCCHEMO 18:37
PROVIDERS: ATTEND Internal Medicine Hematology & Oncology
DX: Z51.11 Encounter for antineoplastic chemotherapy (principal); C54.1 Malignant neoplasm of endometrium
CPT/HCPCS: 36415; 80053; 83735; 85025; 96367; 96375; 96413; 96415; 96417; J1453; J2469

== ENCOUNTER 2018-09-13 09:44 | Day surgery (SDC) | payer OTHER ==
[2018-09-13] MEDS ORDERED: PEGFILGRASTIM 6 MG/0.6 ML DISP.SYRIN SQ ONE (10:00)
[2018-09-13] MEDS ORDERED: PEGFILGRASTIM (NEULASTA ONPRO) 6 MG/0.6 ML KIT SQ ONE (10:00)
[2018-09-13 17:57] VITALS: BP 140/69; PULSE 80; TEMP 98.2
== END 2018-09-13 10:10 | disposition home or self-care (01) ==
LOC: JONCCHEMO 09:44 → J7W 09:49 → JONCCHEMO 10:10
PROVIDERS: ATTEND Internal Medicine Hematology & Oncology
PROC: 3E013GC Introduction of Other Therapeutic Substance into Subcutaneous Tissue, Percutaneous Approach (ICD-10-PCS; principal; 2018-09-13)
DX: C54.1 Malignant neoplasm of endometrium (principal); Z76.89 Persons encountering health services in other specified circumstances
CPT/HCPCS: 96372; J2505

== ENCOUNTER 2018-10-04 10:12 | Day surgery (SDC) | payer OTHER ==
[2018-10-04] MEDS ORDERED: PEGFILGRASTIM (NEULASTA ONPRO) 6 MG/0.6 ML KIT SQ ONE (10:45)
[2018-10-04 12:33] VITALS: BP 132/77; PULSE 94; TEMP 97.8
== END 2018-10-04 11:20 | disposition home or self-care (01) ==
LOC: JONCCHEMO 10:12 → J7W 10:26 → JONCCHEMO 11:20
PROVIDERS: ATTEND Internal Medicine Hematology & Oncology
PROC: 3E013GC Introduction of Other Therapeutic Substance into Subcutaneous Tissue, Percutaneous Approach (ICD-10-PCS; principal; 2018-10-04)
DX: C54.1 Malignant neoplasm of endometrium (principal); Z76.89 Persons encountering health services in other specified circumstances
CPT/HCPCS: 96372; J2505

== ENCOUNTER 2018-10-23 06:15 | Day surgery (SDC) | payer OTHER ==
[2018-10-23] MEDS ORDERED: SODIUM CHLORIDE 500 ML IV ONE (09:00)
[2018-10-23 09:06] LABS: BASO % 0.7 % (0-2.0); HEMOGLOBIN 10.9 GM/dL (10.7-15.3); LYMPH % 18.8 % (8-40); MCH 27.5 pg (25.7-33.7); MCHC 33.1 g/dl (32.0-36.0); MEAN PLT VOLUME 7.5 fl (7.5-11.1); MONO % 2.2 % (3.8-10.2); NEUT % 78.3 % (42.8-82.8); PLATELET COUNT 193 K/MM3 (134-434); RBC 3.98 M/mm3 (3.60-5.2); WHITE BLOOD COUNT 7.5 K/mm3 (4.0-10.0)
[2018-10-23 09:46] LABS: ALBUMIN 3.6 g/dl (3.4-5.0); BILIRUBIN,DIRECT 0.2 mg/dL (0.0-0.2); BILIRUBIN,TOTAL 0.6 mg/dL (0.2-1); BLOOD UREA NITROGEN 13.4 mg/dL (7-18); CALCIUM 8.8 mg/dL (8.5-10.1); CREATININE 0.9 mg/dL (0.55-1.3); POTASSIUM 4.1 mmol/L (3.5-5.1); TOT PROT 6.9 g/dl (6.4-8.2)
[2018-10-23] MEDS ORDERED: SODIUM CHLORIDE IVPB ONE ×2 (10:00→13:00)
[2018-10-23] MEDS ORDERED: PACLITAXEL IVPB ONE (10:00)
[2018-10-23] MEDS ORDERED: PALONOSETRON HCL 0.25 MG/5 ML VIAL IVPUSH ONE (10:30)
[2018-10-23] MEDS ORDERED: FOSAPREPITANT DIMEGLUMINE 150 MG in SODIUM CHLORIDE 145 ML IVPB ONE (10:30)
[2018-10-23] MEDS ORDERED: DEXAMETHASONE SODIUM PHOSPHATE 20 MG, DIPHENHYDRAMINE 50 MG in SODIUM CHLORIDE 100 ML IVPB ONE (10:30)
[2018-10-23] MEDS ORDERED: FAMOTIDINE 20 MG/50 ML IVPB 20 MG/50 ML MG IVPB ONE (10:30)
[2018-10-23] MEDS ORDERED: CARBOPLATIN IVPB ONE (13:00)
[2018-10-23 13:51] LABS: ANISOCYTOSIS 1+; MACROCYTOSIS 0; PLATELET ESTIMATE NORMAL
[2018-10-23] MEDS ORDERED: PORTA CATH FLUSH 10 ML IVPUSH ONE (16:41)
[2018-10-23 16:42] VITALS: TEMP 97.9
[2018-10-23 19:15] VITALS: BP 155/85; PULSE 75
== END 2018-10-23 19:15 | disposition home or self-care (01) ==
LOC: JONCCHEMO 06:15 → J7W 10:41 → JONCCHEMO 19:15
PROVIDERS: ATTEND Internal Medicine Hematology & Oncology
PROC: 3E04305 Introduction of Other Antineoplastic into Central Vein, Percutaneous Approach (ICD-10-PCS; principal; 2018-10-23)
PROC: 3E043GC Introduction of Other Therapeutic Substance into Central Vein, Percutaneous Approach (ICD-10-PCS; 2018-10-23)
PROC: 3E0437Z Introduction of Electrolytic and Water Balance Substance into Central Vein, Percutaneous Approach (ICD-10-PCS; 2018-10-23)
DX: Z51.11 Encounter for antineoplastic chemotherapy (principal); C54.1 Malignant neoplasm of endometrium; I10 Essential (primary) hypertension
CPT/HCPCS: 36415; 80048; 80076; 83735; 85025; 96361; 96367; 96375; 96413; 96415; J1453; J2469

== ENCOUNTER 2018-10-25 10:52 | Day surgery (SDC) | payer OTHER ==
[2018-10-25 13:10] VITALS: BP 140/70; PULSE 88; TEMP 98
== END 2018-10-25 12:20 | disposition home or self-care (01) ==
LOC: JONCCHEMO 10:52 → J7W 10:54 → JONCCHEMO 12:20
PROVIDERS: ATTEND Internal Medicine Hematology & Oncology
PROC: 3E013GC Introduction of Other Therapeutic Substance into Subcutaneous Tissue, Percutaneous Approach (ICD-10-PCS; principal; 2018-10-25)
DX: C54.1 Malignant neoplasm of endometrium (principal); Z76.89 Persons encountering health services in other specified circumstances
CPT/HCPCS: 96372; J2505

== ENCOUNTER 2018-11-13 05:31 | Day surgery (SDC) | payer OTHER ==
[~2018-11-13 05:31] MED LIST changes: +ACETAMINOPHEN 325 MG TABLET (FP) PO ONE; -PEGFILGRASTIM 6 MG/0.6 ML DISP.SYRIN SQ ONE
[2018-11-13] MEDS ORDERED: SODIUM CHLORIDE 500 ML IV ONE (08:00)
[2018-11-13 09:45] LABS: BASO % 0.4 % (0-2.0); HEMATOCRIT 31.8 % (32.4-45.2); HEMOGLOBIN 10.5 GM/dL (10.7-15.3); LYMPH % 15.9 % (8-40); MCHC 33.2 g/dl (32.0-36.0); MEAN CELL VOLUME 87.4 fl (80-96); MEAN PLT VOLUME 7.9 fl (7.5-11.1); MONO % 2.1 % (3.8-10.2); NEUT % 81.6 % (42.8-82.8); PLATELET COUNT 160 K/MM3 (134-434); RBC 3.63 M/mm3 (3.60-5.2); RDW 26.6 % (11.6-15.6); WHITE BLOOD COUNT 7.7 K/mm3 (4.0-10.0)
[2018-11-13] MEDS ORDERED: PALONOSETRON HCL 0.25 MG/5 ML VIAL IVPUSH ONE (10:00)
[2018-11-13] MEDS ORDERED: FAMOTIDINE 20 MG/50 ML IVPB 20 MG/50 ML MG IVPB ONE (10:00)
[2018-11-13] MEDS ORDERED: FOSAPREPITANT DIMEGLUMINE 150 MG in SODIUM CHLORIDE 150 ML IVPB ONE (10:00)
[2018-11-13] MEDS ORDERED: DEXAMETHASONE SODIUM PHOSPHATE 20 MG, DIPHENHYDRAMINE 50 MG in SODIUM CHLORIDE 100 ML IVPB ONE (10:00)
[2018-11-13 10:08] LABS: ALBUMIN 3.7 g/dl (3.4-5.0); BILIRUBIN,DIRECT 0.2 mg/dL (0.0-0.2); BILIRUBIN,TOTAL 0.6 mg/dL (0.2-1); BLOOD UREA NITROGEN 14.2 mg/dL (7-18); CALCIUM 9.2 mg/dL (8.5-10.1); CREATININE 0.9 mg/dL (0.55-1.3); MAGNESIUM 1.7 mg/dL (1.8-2.4); POTASSIUM 3.8 mmol/L (3.5-5.1); TOT PROT 6.8 g/dl (6.4-8.2)
[2018-11-13] MEDS ORDERED: SODIUM CHLORIDE IVPB ONE ×2 (10:30→13:30)
[2018-11-13] MEDS ORDERED: PACLITAXEL IVPB ONE (10:30)
[2018-11-13] MEDS ORDERED: ACETAMINOPHEN 325 MG TABLET (FP) PO ONE (10:30)
[2018-11-13] MEDS ORDERED: MAGNESIUM SULF 50% (8.12 MEQ/2 ML-1 GM VIAL) IVPB ONE (10:47)
[2018-11-13 11:25] LABS: ANISOCYTOSIS 1+; MACROCYTOSIS 1+; OVALOCYTE 1+
[2018-11-13 11:33] LABS: PLATELET ESTIMATE ADEQUATE
[2018-11-13] MEDS ORDERED: CARBOPLATIN IVPB ONE (13:30)
[2018-11-13 18:02] VITALS: BP 142/84; PULSE 97; TEMP 97.8
[2018-11-13] MEDS ORDERED: PORTA CATH FLUSH 10 ML IVPUSH ONE (18:05)
[2018-11-14] MEDS ORDERED: amLODIPine BESYLATE 5 MG TABLET (FP) PO ONE (10:13)
== END 2018-11-13 19:15 | disposition home or self-care (01) ==
LOC: JONCCHEMO 05:31 → J7W 10:32 → JONCCHEMO 19:15
PROVIDERS: ATTEND Internal Medicine Hematology & Oncology
DX: Z51.11 Encounter for antineoplastic chemotherapy (principal); C54.1 Malignant neoplasm of endometrium
CPT/HCPCS: 36415; 80048; 80076; 83735; 85025; 96361; 96367; 96375; 96413; 96417; J1453; J2469

== ENCOUNTER 2018-11-15 10:21 | Day surgery (SDC) | payer OTHER ==
[~2018-11-15 10:21] MED LIST changes: -ACETAMINOPHEN 325 MG TABLET (FP) PO ONE; +PEGFILGRASTIM 6 MG/0.6 ML DISP.SYRIN SQ ONE
[2018-11-15 11:31] VITALS: BP 143/77; PULSE 104; TEMP 97.5
== END 2018-11-15 11:15 | disposition home or self-care (01) ==
LOC: JONCCHEMO 10:21 → J7W 10:27 → JONCCHEMO 11:15
PROVIDERS: ATTEND Internal Medicine Hematology & Oncology
PROC: 3E013GC Introduction of Other Therapeutic Substance into Subcutaneous Tissue, Percutaneous Approach (ICD-10-PCS; principal; 2018-11-15)
DX: C54.1 Malignant neoplasm of endometrium (principal); Z76.89 Persons encountering health services in other specified circumstances
CPT/HCPCS: 96372; J2505

== ENCOUNTER 2018-12-04 05:30 | Day surgery (SDC) | payer OTHER ==
[2018-12-04] MEDS ORDERED: SODIUM CHLORIDE 500 ML IV ONE (09:00)
[2018-12-04] MEDS ORDERED: FAMOTIDINE 20 MG/50 ML IVPB 20 MG/50 ML MG IVPB ONE (10:30)
[2018-12-04] MEDS ORDERED: FOSAPREPITANT DIMEGLUMINE 150 MG in SODIUM CHLORIDE 145 ML IVPB ONE (10:30)
[2018-12-04] MEDS ORDERED: DEXAMETHASONE SODIUM PHOSPHATE 20 MG, DIPHENHYDRAMINE 50 MG in SODIUM CHLORIDE 100 ML IVPB ONE (10:30)
[2018-12-04] MEDS ORDERED: PALONOSETRON HCL 0.25 MG/5 ML VIAL IVPUSH ONE (10:30)
[2018-12-04 10:43] LABS: BASO % 0.4 % (0-2.0); HEMATOCRIT 29.2 % (32.4-45.2); LYMPH % 15.1 % (8-40); MCH 31.1 pg (25.7-33.7); MCHC 34.4 g/dl (32.0-36.0); MEAN CELL VOLUME 90.5 fl (80-96); MEAN PLT VOLUME 7.8 fl (7.5-11.1); NEUT % 83.5 % (42.8-82.8); PLATELET COUNT 163 K/MM3 (134-434); RBC 3.23 M/mm3 (3.60-5.2); RDW 23.5 % (11.6-15.6)
[2018-12-04] MEDS ORDERED: PACLITAXEL IVPB ONE (11:00)
[2018-12-04] MEDS ORDERED: SODIUM CHLORIDE IVPB ONE ×3 (11:00→14:00)
[2018-12-04 11:05] LABS: ALBUMIN 3.8 g/dl (3.4-5.0); BILIRUBIN,TOTAL 0.6 mg/dL (0.2-1); BLOOD UREA NITROGEN 19.2 mg/dL (7-18); CALCIUM 8.8 mg/dL (8.5-10.1); CREATININE 0.9 mg/dL (0.55-1.3); MAGNESIUM 1.7 mg/dL (1.8-2.4); POTASSIUM 3.8 mmol/L (3.5-5.1); TOT PROT 7.1 g/dl (6.4-8.2)
[2018-12-04] MEDS ORDERED: MAGNESIUM SULF 50% (8.12 MEQ/2 ML-1 GM VIAL) IVPB ONE ×2 (11:10→11:15)
[2018-12-04 12:41] LABS: ANISOCYTOSIS 1+; OVALOCYTE 1+
[2018-12-04 12:49] LABS: MACROCYTOSIS 1+; PLATELET ESTIMATE ADEQUATE
[2018-12-04] MEDS ORDERED: CARBOPLATIN IVPB ONE ×2 (14:00)
[2018-12-04] MEDS ORDERED: MAGNESIUM OXIDE 400 MG TABLET (FP) PO ONE (16:44)
[2018-12-04] MEDS ORDERED: PORTA CATH FLUSH 10 ML IVPUSH ONE (18:01)
[2018-12-04 18:02] VITALS: TEMP 99
[2018-12-04 18:55] VITALS: BP 128/74; PULSE 68
== END 2018-12-04 18:56 | disposition home or self-care (01) ==
LOC: JONCCHEMO 05:30 → J7W 11:22 → JONCCHEMO 18:56
PROVIDERS: ATTEND Internal Medicine Hematology & Oncology
PROC: 3E04305 Introduction of Other Antineoplastic into Central Vein, Percutaneous Approach (ICD-10-PCS; principal; 2018-12-04)
PROC: 3E043GC Introduction of Other Therapeutic Substance into Central Vein, Percutaneous Approach (ICD-10-PCS; 2018-12-04)
PROC: 3E0437Z Introduction of Electrolytic and Water Balance Substance into Central Vein, Percutaneous Approach (ICD-10-PCS; 2018-12-04)
DX: Z51.11 Encounter for antineoplastic chemotherapy (principal); C54.1 Malignant neoplasm of endometrium; I10 Essential (primary) hypertension
CPT/HCPCS: 36415; 80053; 83735; 85025; 96361; 96367; 96375; 96413; 96415; 96417; J1453; J2469

== ENCOUNTER 2018-12-06 11:04 | Day surgery (SDC) | payer OTHER ==
[2018-12-06] MEDS ORDERED: PEGFILGRASTIM 6 MG/0.6 ML DISP.SYRIN SQ ONE (12:00)
[2018-12-06 12:29] VITALS: BP 143/76; PULSE 98; TEMP 97.7
== END 2018-12-06 13:44 | disposition home or self-care (01) ==
LOC: JCHEMO 11:04 → J7W 11:06 → JCHEMO 13:44
PROVIDERS: ATTEND Internal Medicine Hematology & Oncology
DX: Z76.89 Persons encountering health services in other specified circumstances (principal); C54.1 Malignant neoplasm of endometrium; I10 Essential (primary) hypertension
CPT/HCPCS: 96372; J2505

== ENCOUNTER 2019-02-16 20:01 | Inpatient (IN) | payer OTHER ==
[2019-02-16 21:00] LABS: BASO % 0.5 % (0-2.0); EOS % 0.5 % (0-4.5); HEMATOCRIT 37.7 % (32.4-45.2); HEMOGLOBIN 12.8 GM/dl (10.7-15.3); LYMPH % 40.9 % (8-40); MCH 30.2 pg (25.7-33.7); MCHC 33.8 g/dl (32.0-36.0); MEAN CELL VOLUME 89.3 fl (80-96); MEAN PLT VOLUME 7.8 fl (7.5-11.1); MONO % 8.7 % (3.8-10.2); NEUT % 49.4 % (42.8-82.8); PLATELET COUNT 240 K/MM3 (134-434); RBC 4.22 M/mm3 (3.60-5.2); RDW 13.7 % (11.6-15.6); WHITE BLOOD COUNT 8.1 K/mm3 (4.0-10.8)
[2019-02-16 21:05] LABS: INR 1.16 (0.82-1.09)
[2019-02-16 21:11] LABS: BILIRUBIN,TOTAL 0.7 mg/dl (0.2-1); CALCIUM 8.9 mg/dl (8.5-10); CREATININE 0.7 mg/dl (0.55-1.3); POTASSIUM 3.4 mmol/L (3.5-5.1)
[2019-02-16] MEDS ORDERED: POTASSIUM CHLORIDE TABS 20 MEQ TABLET.ER (FP) PO ONE (23:37)
--- NOTE | 2019-02-16 23:43 | PDOC ---
Documentation entered by Juliana Ponce SCRIBE, acting as scribe for Sandy Bishop MD. Sandy Bishop MD: This documentation has been prepared by the anaeKris Aiswarya, SCRIBE, under my direction and personally reviewed by me in its entirety. I confirm that the documentation accurately reflects all work, treatment, procedures, and medical decision making performed by me. History of Present Illness - General Chief Complaint: Syncope/Near Syncope Stated Complaint: FAINTED LAST NIGHT Time Seen by Provider: 02/16/19 20:06 History Source: Patient Exam Limitations: No Limitations - History of Present Illness Initial Comments: 02/16/19 22:12 The patient is a 68 year old female, with a significant PMH of endometrial diagnosed in July (Dec 04 last chemo and hysterectomy was done) and HTN, who presents to the emergency department for evaluation of an unwitnessed syncope episode that occurred last night. Patient states she felt sob, unstable gait and disoriented before she syncopized. She states she was watching TV when she fainted and her son found her on the floor. Per patient's son, patient syncopize for about 20 seconds. Patient also mentions that she is scheduled for a left knee surgery tomorrow. The patient denies chest pain, headache and dizziness. Denies fever, chills, nausea, vomit, diarrhea and constipation. Allergies: NKDA Past surgical history: hysterectomy Social history: current everyday smoker PCP: Elicia Lucas Creative Services Specialist: [place] Past History - Past Medical History Allergies/Adverse Reactions: Allergies Allergy/AdvReac Type Severity Reaction Status Date / Time No Known Allergies Allergy Verified 02/16/19 20:12 Home Medications: Ambulatory Orders Amlodipine Besylate 10 mg PO DAILY #0 07/15/18 Gabapentin [Neurontin -] 300 mg PO Q8H PRN 07/15/18 Hydrochlorothiazide [Hctz -] 25 mg PO DAILY 07/15/18 Metoprolol Succinate 25 mg PO DAILY 07/15/18 Cancer: Yes (endometrial) COPD: No HTN: Yes - Immunization History Immunization Up to Date: Yes - Psycho Social/Smoking Cessation Hx Smoking History: Current every day smoker Have you smoked in the past 12 months: Yes Number of Cigarettes Smoked Daily: 5 'Breaking Loose' booklet given: 07/15/18 Hx Alcohol Use: No Drug/Substance Use Hx: No Substance Use Type: None Hx Substance Use Treatment: No Review of Systems - Review of Systems Able to Perform ROS?: Yes Comments:: 02/16/19 22:12 GENERAL/CONSTITUTIONAL: No fever or chills. No weakness. HEAD, EYES, EARS, NOSE AND THROAT: No change in vision. No ear pain or discharge. No sore throat. CARDIOVASCULAR: +sob. No chest pain RESPIRATORY: No cough, wheezing, or hemoptysis. MUSCULOSKELETAL: No joint or muscle swelling or pain. No neck or back pain. SKIN: No rash NEUROLOGIC:+unstable gait. No headache, vertigo, loss of consciousness, or change in strength/sensation. ENDOCRINE: No increased thirst. No abnormal weight change. HEMATOLOGIC/LYMPHATIC: No anemia, easy bleeding, or history of blood clots. ALLERGIC/IMMUNOLOGIC: No hives or skin allergy. *Physical Exam - Vital Signs Last Vital Signs Temp Pulse Resp BP Pulse Ox 98.8 F 90 16 151/84 97 02/16/19 20:03 02/16/19 23:08 02/16/19 23:08 02/16/19 23:08 02/16/19 23:08 - Physical Exam 02/16/19 22:13 GENERAL: Awake, alert, and fully oriented, in no acute distress HEAD: No signs of trauma EYES: PERRLA, EOMI, sclera anicteric, conjunctiva clear ENT: Auricles normal inspection, hearing grossly normal, nares patent, oropharynx clear without exudates. Moist mucosa NECK:+tenderness on palpation of the midline C6-C7 cervical spine. No lymphadenopathy, JVD, or masses LUNGS: Breath sounds equal, clear to auscultation bilaterally. No wheezes, and no crackles HEART: Regular rate and rhythm, normal S1 and S2, no murmurs, rubs or gallops ABDOMEN: Soft, nontender, normoactive bowel sounds. No guarding, no rebound. No masses EXTREMITIES: +Tenderness on palpation of the left knee.No edema, clubbing or cyanosis. No cords or erythema. NEUROLOGICAL: Cranial nerves II through XII grossly intact. Normal speech. SKIN: Warm, Dry, normal turgor, no rashes or lesions noted. ED Treatment Course - LABORATORY CBC & Chemistry Diagram: 02/16/19 20:40 02/16/19 20:40 - ADDITIONAL ORDERS Additional order review: Laboratory Results 02/16/19 02/16/19 02/16/19 20:40 20:40 20:40 PT with INR 13.0 INR 1.16 Sodium 141 Potassium 3.4 L Chloride 102 Carbon Dioxide 27 Anion Gap 12 BUN 20.0 H Creatinine 0.7 Est GFR (CKD-EPI)AfAm 104.64 Est GFR (CKD-EPI)NonAf 90.29 Random Glucose 95 Calcium 8.9 Total Bilirubin 0.7 AST 20 ALT 21 Alkaline Phosphatase 48 Creatine Kinase 130 Troponin I < 0.03 Total Protein 7.0 Albumin 4.0 02/16/19 20:40 RBC 4.22 MCV 89.3 MCHC 33.8 RDW 13.7 MPV 7.8 Neutrophils % 49.4 Lymphocytes % 40.9 H Monocytes % 8.7 Eosinophils % 0.5 Basophils % 0.5 - RADIOLOGY Radiology Studies Ordered: Category Date Time Status CERVICAL SPINE CT W/O CONTR [CT] Stat CT Scan 02/16/19 21:[address] WITHOUT CONTRAST [CT] Stat CT Scan 02/16/19 21:23 Completed CHEST X-RAY PORTABLE* [RAD] Stat Radiology 02/16/19 20:42 Taken Medical Decision Making - Medical Decision Making 68-year-old woman with a history of hypertension and endometrial carcinoma presents with a history of syncopal episode last night. Exam as noted above Full work-up including twelve-lead EKG, CBC, chemistry profile with troponin, INR, UA,pCXR and noncontrast head CT/C-spine CT performed Twelve-lead electrocardiogram reveals normal sinus rhythm at 89 bpm; no acute ST or T wave abnormality seen. Intervals, waveforms and axis are normal No evidence of cardiac arrhythmia evident Laboratory evaluation essentially normal except for mild hypokalemia (3.4) and evidence of mild prerenal azotemia (BUN 20/creatinine 0.6). Noncontrast head CT and cervical spine CT are essentially normal. Results discussed with the patient's oncologist, Dr. Redding. Although the patient had medical clearance for her total knee replacement scheduled for tomorrow, because of patient's syncopal episode admission for cardiac monitoring , gentle hydration and cardiology evaluation warranted 02/17/19 00:[address] Cheung of [facility] service: Patient admitted to telemetry observation status Discharge - Discharge Information Problems reviewed: Yes Clinical Impression/Diagnosis: Syncope Qualifiers: Syncope type: unspecified Qualified Code(s): R55 - Syncope and collapse Condition: Stable - Admission Yes - Follow up/Referral Referrals: Elicia Redding MD [Primary Care Provider] - - Patient Discharge Instructions - Post Discharge Activity
[2019-02-16] MEDS ORDERED: SODIUM CHLORIDE 1,000 ML IV SCH (23:45)
[2019-02-17] MEDS ORDERED: POTASSIUM CHLORIDE TABS 20 MEQ TABLET.ER (FP) PO ONE ×2 (00:37→10:15)
[2019-02-17] MEDS ORDERED: GABAPENTIN 300 MG CAPSULE PO PRN (00:53)
[2019-02-17 02:05] VITALS: BMI 47.5
--- NOTE | 2019-02-17 05:59 | HP ---
CHIEF COMPLAINT: Syncope Oncology: Dr. Elicia Melendez Cardiology: Dr. Samson Ortho: Dr. Hinkle HISTORY OF PRESENT ILLNESS: 68 year-old female with a PMH significant for HTN, h/o DVT not on anticoagulation, endometrial cancer s/p CHILANGO-SBO 07/15/2018, last chemo treatment 12/04/2018, and thyroid nodules. On Saturday evening 02/15, patient was sitting watching television when she felt dizzy and SOB. The next thing she remembers is waking up on the floor with her son shaking her. She was immediately oriented although felt unsteady and spaced out. She did not bite her tongue, no bowel or urinary incontinence. She resisted her son's attempt to get her to go the hospital. On Saturday morning patient still felt lightheaded and she called Dr. Rubi to tell her what happened. Dr. Rubi directed her to go the ED. Patient was scheduled for a left total knee replacement on 02/17/[address] Hinkle, procedure has been postponed. ER course was notable for: (1) Troponin neg x 1 (2) K 3.4 Recent Travel: No PAST MEDICAL HISTORY: Hypertension DVT Endometrial cancer Thyroid nodules PAST SURGICAL HISTORY: CHILANGO-BSO 07/15/18 Tunneled catheter 08/19/18 Social History: Smoking: current every day Alcohol: Drugs: Family history: breast cancer Allergies No Known Allergies Allergy (Verified 02/16/19 20:12) HOME MEDICATIONS: Home Medications Medication Instructions Recorded Amlodipine Besylate 10 mg PO DAILY #0 07/15/18 Gabapentin [Neurontin -] 300 mg PO Q8H PRN 07/15/18 Hydrochlorothiazide [Hctz -] 25 mg PO DAILY 07/15/18 Metoprolol Succinate 25 mg PO DAILY 07/15/18 REVIEW OF SYSTEMS CONSTITUTIONAL: Absent: fever, chills, diaphoresis, generalized weakness, malaise, loss of appetite, weight change HEENT: Absent: rhinorrhea, nasal congestion, throat pain, throat swelling, difficulty swallowing, mouth swelling, ear pain, eye pain, visual changes CARDIOVASCULAR: +syncope with SOB Absent: chest pain, palpitations, irregular heart rate, lightheadedness, peripheral edema RESPIRATORY: Absent: cough, shortness of breath, dyspnea with exertion, orthopnea, wheezing, stridor, hemoptysis GASTROINTESTINAL: Absent: abdominal pain, abdominal distension, nausea, vomiting, diarrhea, constipation, melena, hematochezia GENITOURINARY: Absent: dysuria, frequency, urgency, hesitancy, hematuria, flank pain, genital pain MUSCULOSKELETAL: +bilateral knee pain Absent: myalgia, arthralgia, joint swelling, back pain, neck pain SKIN: Absent: rash, itching, pallor HEMATOLOGIC/IMMUNOLOGIC: Absent: easy bleeding, easy bruising, lymphadenopathy, frequent infections ENDOCRINE: Absent: unexplained weight gain, unexplained weight loss, heat intolerance, cold intolerance NEUROLOGIC: Absent: headache, focal weakness or paresthesias, dizziness, unsteady gait, seizure, mental status changes, bladder or bowel incontinence PSYCHIATRIC: Absent: anxiety, depression, suicidal or homicidal ideation, hallucinations. PHYSICAL EXAMINATION Vital Signs - 24 hr 02/16/19 02/16/19 02/17/19 20:03 23:08 01:51 Temperature 98.8 F 98 F Pulse Rate 102 H 90 Pulse Rate [ 90 Left] Respiratory 18 16 18 Rate Blood Pressure 180/92 H 131/60 Blood Pressure 151/84 [Right] O2 Sat by Pulse 96 97 100 Oximetry (%) GENERAL: Awake, alert, and fully oriented, in mild distress secondary to bilateral knee pain HEAD: Normal with no signs of trauma. EYES: Pupils equal, round and reactive to light, extraocular movements intact, sclera anicteric, conjunctiva clear. LUNGS: CTA HEART: Regular rate and rhythm, normal S1 and S2 ABDOMEN: Soft, nontender, not distended MUSCULOSKELETAL: Significant tenderness bilateral knees and legs UPPER EXTREMITIES: 2+ pulses, warm, well-perfused. No cyanosis. No clubbing. No peripheral edema. LOWER EXTREMITIES: 2+ pulses, warm, well-perfused. Bilateral knee tenderness. No peripheral edema. NEUROLOGICAL: Cranial nerves II-XII intact. Normal speech. Gait not observed. Laboratory Results - last 24 hr 02/16/19 02/16/19 02/16/19 20:40 20:40 20:40 WBC 8.1 RBC 4.22 Hgb 12.8 Hct 37.7 MCV 89.3 MCH 30.2 MCHC 33.8 RDW 13.7 Plt Count 240 MPV 7.8 Absolute Neuts (auto) 4.1 Neutrophils % 49.4 Lymphocytes % 40.9 H Monocytes % 8.7 Eosinophils % 0.5 Basophils % 0.5 PT with INR INR Sodium 141 Potassium 3.4 L Chloride 102 Carbon Dioxide 27 Anion Gap 12 BUN 20.0 H Creatinine 0.7 Est GFR (CKD-EPI)AfAm 104.64 Est GFR (CKD-EPI)NonAf 90.29 Random Glucose 95 Calcium 8.9 Total Bilirubin 0.7 AST 20 ALT 21 Alkaline Phosphatase 48 Creatine Kinase 130 Troponin I < 0.03 Total Protein 7.0 Albumin 4.0 02/16/19 20:40 WBC RBC Hgb Hct MCV MCH MCHC RDW Plt Count MPV Absolute Neuts (auto) Neutrophils % Lymphocytes % Monocytes % Eosinophils % Basophils % PT with INR 13.0 INR 1.16 Sodium Potassium Chloride Carbon Dioxide Anion Gap BUN Creatinine Est GFR (CKD-EPI)AfAm Est GFR (CKD-EPI)NonAf Random Glucose Calcium Total Bilirubin AST ALT Alkaline Phosphatase Creatine Kinase Troponin I Total Protein Albumin ASSESSMENT/PLAN: 68 year-old female with a PMH significant for HTN, h/o DVT not on anticoagulation, and endometrial cancer s/p CHILANGO-SBO 07/15/2018, last chemo treatment 12/04/2018. Placed on observation for syncopal episode on 02/15. Was scheduled for elective left total knee replacement today with Dr. Hinkle, cancelled. Syncope --troponin neg x 2 --CXR: unremarkable --ECG: no acute ischemic changess --US carotid: no significant stenosis --CT head negative for acute process; mild nonspecific bilateral frontal subcortical white matter low-attenuation, possibly chronic microvascular ischemic changes --telemetry monitoring --cardiology consult --neurology consult Diastolic heart failure --08/1018 Echo: mild LVH; LV systolic function normal EF 60-65%, Grade I diastolic dysfunction; RV normal; LAE; trace MR; possible , SEBASTIAN 1.0cm2; mild AI; small pericardial effusion <1cm --continue HCTZ Endometrial cancer s/p HCILANGO-BSO --last chemo 12/04/18 --followed by Dr. Rubi Thyroid nodules --01/23 US thyroid: 2 nodules moderately suspicious; 1 nodule highly suspicious recommendation FNA h/o DVT --not on anticoagulation Degenerative joint disease --left TKR tentatively scheduled for Saturday if cleared by cardiology Hypertension --BP stable --continue ToprolXL, amlodipine Hypokalemia --repleted in ED, repeat bmp pending FEN Fluids: PO intake adequate Electrolytes: replete as indicated Nutrition: low sodium DVT prophylaxis: subq heparin Dispo: continues to require inpatient care. Full code. Visit type - Emergency Visit Emergency Visit: Yes ED Registration Date: 02/17/19 Care time: The patient presented to the Emergency Department on the above date and was hospitalized for further evaluation of their emergent condition. - New Patient This patient is new to me today: Yes Date on this admission: 02/18/19 - Critical Care Critical Care patient: No
[2019-02-17] MEDS: HEPARIN NA (PORCINE) 5,000 UNITS/ML 1ML VIAL SQ SCH ×3 (06:53→21:17)
[2019-02-17 08:04] LABS: HEMATOCRIT 36.4 % (32.4-45.2); HEMOGLOBIN 11.9 GM/dl (10.7-15.3); MCH 29.3 pg (25.7-33.7); MCHC 32.7 g/dl (32.0-36.0); MEAN CELL VOLUME 89.4 fl (80-96); MEAN PLT VOLUME 7.9 fl (7.5-11.1); PLATELET COUNT 213 K/MM3 (134-434); RBC 4.07 M/mm3 (3.60-5.2); RDW 13.7 % (11.6-15.6); WHITE BLOOD COUNT 6.6 K/mm3 (4.0-10.8)
[2019-02-17 08:11] LABS: CALCIUM 8.8 mg/dl (8.5-10); CREATININE 0.7 mg/dl (0.55-1.3); POTASSIUM 3.6 mmol/L (3.5-5.1)
[2019-02-17 09:03] LABS: MAGNESIUM 1.5 mg/dL (1.8-2.4)
--- NOTE | 2019-02-17 09:48 | EKG ---
Test Reason : Blood Pressure : / mmHG Vent. Rate : 089 BPM Atrial Rate : 089 BPM P-R Int : 174 ms QRS Dur : 098 ms QT Int : 378 ms P-R-T Axes : 039 042 022 degrees QTc Int : 459 ms NORMAL SINUS RHYTHM POSSIBLE LEFT ATRIAL ENLARGEMENT BORDERLINE ECG NO PREVIOUS ECGS AVAILABLE Confirmed by MD Spike, Marbin ([id number]) on 02/17/2019 9:48:33 AM Referred By: DR KURTZ Confirmed By:Marbin Lala MD
[2019-02-17] MEDS ORDERED: MAGNESIUM SULF 50% (8.12 MEQ/2 ML-1 GM VIAL) IVPB ONE (10:02)
[2019-02-17] MEDS ORDERED: MAGNESIUM SULFATE IN WATER 2 GM/50 ML IVPB IVPB ONE (10:15)
[2019-02-17] MEDS: metoPROLOL SUCCINATE 25 MG TAB.SR.24H (FP) PO SCH (10:28)
[2019-02-17] MEDS: HYDROCHLOROTHIAZIDE 25 MG TABLET (FP) PO SCH (10:28)
[2019-02-17] MEDS: amLODIPine BESYLATE 10 MG TABLET (FP) PO SCH (10:28)
[2019-02-17] MEDS ORDERED: ceFAZolin SODIUM 1 GM VIAL ONE (11:00)
[2019-02-17] MEDS ORDERED: TRANEXAMIC ACID 1000 MG/10 ML VIAL ONE (11:00)
--- NOTE | 2019-02-17 13:17 | CON.ORTH ---
Consult Reason for Consultation:: left knee pain - Alcohol/Substance Use Hx Alcohol Use: No - Smoking History Smoking history: Current every day smoker Have you smoked in the past 12 months: Yes Aproximately how many cigarettes per day: 5 If you are a former smoker, when did you quit?: 2 WEEKS AGO Home Medications - Allergies Allergies/Adverse Reactions: Allergies Allergy/AdvReac Type Severity Reaction Status Date / Time No Known Allergies Allergy Verified 02/16/19 20:12 - Home Medications Home Medications: Ambulatory Orders Amlodipine Besylate 10 mg PO DAILY #0 07/15/18 Gabapentin [Neurontin -] 300 mg PO Q8H PRN 07/15/18 Hydrochlorothiazide [Hctz -] 25 mg PO DAILY 07/15/18 Metoprolol Succinate 25 mg PO DAILY 07/15/18 Physical Exam for Ortho Vital Signs: Vital Signs Temperature 98.1 F 02/17/19 10:27 Pulse Rate 92 H 02/17/19 10:27 Respiratory Rate 19 02/17/19 10:27 Blood Pressure 116/66 02/17/19 10:27 O2 Sat by Pulse Oximetry (%) 98 02/17/19 10:27 Labs: CBC, BMP 02/17/19 07:29 02/17/19 07:29 INR, PTT INR 1.16 (0.82-1.09) 02/16/19 20:40 - Lower Extremity Knee: Yes: Left, Limited ROM, Pain, Swelling, Other (nvi) Assessment/Plan 68 year-old female with a PMH significant for HTN, h/o DVT not on anticoagulation, and endometrial cancer s/p CHILANGO-SBO 07/15/2018, last chemo treatment 12/04/2018. Scheduled for elective left total knee replacement today. Put on hold until cardiac work-up done. a/p Cardio consult tentatively scheduled for Saturday of cleared by cardio/med will follow d/w Dr. Hinkle
--- NOTE | 2019-02-17 14:12 | CON.CARD ---
Consult Consult Specialty:: cardio - History of Present Illness Chief Complaint: fainted History of Present Illness: 68 F here with syncope On Saturday evening 02/15 around 8pm, patient was sitting watching television in son's office. began to feel very flushed and hot, diaphoretic. opened window and put cold towel on her. ate normal sized dinner prior to that. next memory she was on the floor. thinks the flushing was going on for 10 min or so prior to syncope. denies confusion when came to--realized she was in son's office and he was standing over her. denies gi upse, naus/vomiting. denies palpitations or cp. no new neuro deficits associated with these events. initial BP 180/92 in ER. orthostatics WNL here. bun/creat unremarkable. trop x 2 neg. currently feels well, in US[place] PMH: HTN, h/o DVT not on anticoagulation, endometrial cancer s/p CHILANGO-SBO 2018, last chemo treatment 12/04/2018 - Alcohol/Substance Use Hx Alcohol Use: No - Smoking History Smoking history: Current every day smoker Have you smoked in the past 12 months: Yes Aproximately how many cigarettes per day: 5 If you are a former smoker, when did you quit?: 2 WEEKS AGO Home Medications - Allergies Allergies/Adverse Reactions: Allergies Allergy/AdvReac Type Severity Reaction Status Date / Time No Known Allergies Allergy Verified 02/16/19 20:12 - Home Medications Home Medications: Ambulatory Orders Amlodipine Besylate 10 mg PO DAILY #0 07/15/18 Gabapentin [Neurontin -] 300 mg PO Q8H PRN 07/15/18 Hydrochlorothiazide [Hctz -] 25 mg PO DAILY 07/15/18 Metoprolol Succinate 25 mg PO DAILY 07/15/18 Family Medical History Family History: Denies (no known cmp) Review of Systems - Review of Systems Constitutional: denies: Chills, Fever Eyes: denies: Eye Pain HENT: denies: Nasal Congestion Neck: denies: Stiffness Cardiovascular: denies: Palpitations Respiratory: denies: Orthopnea, PND Gastrointestinal: denies: Diarrhea, Rectal Bleeding Genitourinary: denies: Burning, Hematuria Musculoskeletal: denies: Muscle Pain Integumentary: denies: Rash Neurological: reports: Syncope. denies: Numbness, Seizure, Tremors Endocrine: denies: Excessive Sweating Hematology/Lymphatic: denies: Excessive Bleeding Vital Signs: Vital Signs Temperature 98.1 F 02/17/19 10:27 Pulse Rate 92 H 02/17/19 10:27 Respiratory Rate 19 02/17/19 10:27 Blood Pressure 116/66 02/17/19 10:27 O2 Sat by Pulse Oximetry (%) 98 02/17/19 10:27 Constitutional: Yes: Well Nourished, No Distress, Obese Eyes: No: Sclera Icterus HENT: No: Nasal Congestion Neck: No: Decreased ROM Respiratory: Yes: CTA Bilaterally. No: Accessory Muscle Use, Rales, Wheezes Gastrointestinal: Yes: Normal Bowel Sounds. No: Distention, Hepatomegaly, Palpable Mass, Tenderness Cardiovascular: Yes: Regular Rate and Rhythm JVD: No Carotid Bruit: No PMI: Non-Displaced Heart Sounds: Yes: S1, S2. No: Gallop Murmur: Yes: Systolic Murmur (soft heart sounds--cannot hear s1/s2. hi-pitched syst murmur LUSB). No: Diastolic Murmur Musculoskeletal: Yes: Other (No kyphosis) Extremities: No: Cool, Cyanosis Edema: No Peripheral Pulses: 2+ Left Carotid, 2+ Right Carotid, 2+ Left Doralis Pedis, 2+ Right Dorsalis Pedis Integumentary: No: Jaundice Neurological: Yes: Alert, Oriented (x3) Psychiatric: No: Agitated - Other Data Labs, Other Data: CBC, BMP 02/17/19 07:29 02/17/19 07:29 INR, PTT INR 1.16 (0.82-1.09) 02/16/19 20:40 Troponin, BNP 02/16/19 02/17/19 20:40 07:29 Troponin I < 0.03 < 0.03 Troponin, BNP 02/16/19 02/17/19 20:40 07:29 Troponin I < 0.03 < 0.03 Assessment/Plan ECG: NSR, WNL (normal intervals) CXR: clear lungs/pleura CT head: no acute pathology Carotid dopplers: no obstructive plaque tele: NSR, no events syncope: -? atypical vasovagal episode, given prodrome of intense flushing. however no identifiable vasovagal triggers -TIA/sz unlikely, per neuro input -atypical syst murmur heard, in pt with soft heart sounds--check echo, r/o or dynamic LVOT obstruction -she is not orthostatic here, bun/creat unremarkable--ok to cont home bp meds including thiazide -cont tele HTN: -bp controlled -same meds
--- NOTE | 2019-02-17 17:17 | CON.NEURO ---
Consult - Alcohol/Substance Use Hx Alcohol Use: No - Smoking History Smoking history: Current every day smoker Have you smoked in the past 12 months: Yes Aproximately how many cigarettes per day: 5 If you are a former smoker, when did you quit?: 2 WEEKS AGO Home Medications - Allergies Allergies/Adverse Reactions: Allergies Allergy/AdvReac Type Severity Reaction Status Date / Time No Known Allergies Allergy Verified 02/16/19 20:12 - Home Medications Home Medications: Ambulatory Orders Amlodipine Besylate 10 mg PO DAILY #0 07/15/18 Gabapentin [Neurontin -] 300 mg PO Q8H PRN 07/15/18 Hydrochlorothiazide [Hctz -] 25 mg PO DAILY 07/15/18 Metoprolol Succinate 25 mg PO DAILY 07/15/18 Physical Exam-Neuro Vital Signs: Vital Signs Temperature 98.2 F 02/17/19 14:14 Pulse Rate 90 02/17/19 14:14 Respiratory Rate 19 02/17/19 14:14 Blood Pressure 114/55 L 02/17/19 14:14 O2 Sat by Pulse Oximetry (%) 97 02/17/19 14:14 Labs: CBC, BMP 02/17/19 07:29 02/17/19 07:29 INR, PTT INR 1.16 (0.82-1.09) 02/16/19 20:40 Assessment/Plan cc Episode of passing out HPI 68 year old female history of HTN, DVT, ENDOMETRIAL Cancer , last chemo on 12/04/2018. patient has episode of passing out. There was no seizure like activity, no tongue bite or incontinence. Patient was feeling dizzy that day and now she feels completely normal. She was schedule to go for surgery today but it was cancelled due to episode of syncope. She came to ed after dr Elicia gutierrez to her. PAST MEDICAL HISTORY: Hypertension DVT Endometrial cancer Thyroid nodules PAST SURGICAL HISTORY: CHILANGO-BSO 07/15/18 Tunneled catheter 08/19/18 Family history: breast cancer Allergies No Known Allergies Allergy (Verified 02/16/19 20:12) HOME MEDICATIONS: Home Medications Medication Instructions Recorded Amlodipine Besylate 10 mg PO DAILY #0 07/15/18 Gabapentin [Neurontin -] 300 mg PO Q8H PRN 07/15/18 Hydrochlorothiazide [Hctz -] 25 mg PO DAILY 07/15/18 Metoprolol Succinate 25 mg PO DAILY 07/15/18 ROS,FH,SH reviewed in chart NEUROLOGICAL EXAMINATION Alert oriented x 3, neck is supple vss eomi, pupils reactive no face asymmetry moving all ext sensation is normal ct head is unremarkable Assessment/Plan 68 year old female history of HTN, DVT, ENDOMETRIAL Cancer , last chemo on 12/04/2018. She came with episode of syncope, unlikley to be tia or seizure Plan: ct head and carotid ultrasound is unremarkable no medication or further testing ( mri fo brain ) from neuro point of view - pateint can be discharged from neuro point of view Thanking you so much Wing Valle MD
[2019-02-18] MEDS: HEPARIN NA (PORCINE) 5,000 UNITS/ML 1ML VIAL SQ SCH ×3 (05:53→21:28)
--- NOTE | 2019-02-18 07:50 | PN ---
Physical Exam: SUBJECTIVE: Patient seen and examined OBJECTIVE: Vital Signs Period Temp Pulse Resp BP Sys/Harrison Pulse Ox Last 24 Hr 97.9 F-98.3 F 90-105 18-19 114-145/55-77 94-99 GENERAL: Awake, alert, and fully oriented, in mild distress secondary to bilateral knee pain HEAD: Normal with no signs of trauma. EYES: Pupils equal, round and reactive to light, extraocular movements intact, sclera anicteric, conjunctiva clear. LUNGS: CTA HEART: Regular rate and rhythm, normal S1 and S2 ABDOMEN: Soft, nontender, not distended MUSCULOSKELETAL: Significant tenderness bilateral knees and legs UPPER EXTREMITIES: 2+ pulses, warm, well-perfused. No cyanosis. No clubbing. No peripheral edema. LOWER EXTREMITIES: 2+ pulses, warm, well-perfused. Bilateral knee tenderness. No peripheral edema. NEUROLOGICAL: Cranial nerves II-XII intact. Normal speech. Gait not observed. Laboratory Results - last 24 hr 02/17/19 02/17/19 02/17/19 07:29 07:29 07:29 WBC 6.6 RBC 4.07 Hgb 11.9 Hct 36.4 MCV 89.4 MCH 29.3 MCHC 32.7 RDW 13.7 Plt Count 213 MPV 7.9 Sodium 139 Potassium 3.6 Chloride 103 Carbon Dioxide 28 Anion Gap 8 BUN 16.0 Creatinine 0.7 Est GFR (CKD-EPI)AfAm 104.64 Est GFR (CKD-EPI)NonAf 90.29 POC Glucometer Random Glucose 122 H Calcium 8.8 Magnesium Troponin I < 0.03 TSH Free T4 02/17/19 02/17/19 02/17/19 07:29 07:29 18:00 WBC RBC Hgb Hct MCV MCH MCHC RDW Plt Count MPV Sodium Potassium Chloride Carbon Dioxide Anion Gap BUN Creatinine Est GFR (CKD-EPI)AfAm Est GFR (CKD-EPI)NonAf POC Glucometer 169 Random Glucose Calcium Magnesium 1.5 L Troponin I TSH 0.75 Free T4 1.08 Active Medications Generic Name Dose Route Start Last Admin Trade Name Freq PRN Reason Stop Dose Admin Amlodipine Besylate 10 mg 02/17/19 10:00 02/17/19 10:28 Norvasc - PO 10 mg DAILY ORMÁN Administration Gabapentin 300 mg 02/17/19 00:53 Neurontin - PO Q8H PRN PAIN Heparin Sodium (Porcine) 5,000 unit 02/17/19 06:00 02/18/19 05:53 Heparin - SQ 5,000 unit TID ROMÁN Administration Hydrochlorothiazide 25 mg 02/17/19 10:00 02/17/19 10:28 Hctz - PO 25 mg DAILY ROMÁN Administration Metoprolol Succinate 25 mg 02/17/19 10:00 02/17/19 10:28 Toprol Xl - PO 25 mg DAILY ROMÁN Administration ASSESSMENT/PLAN: 68 year-old female with a PMH significant for HTN, h/o DVT not on anticoagulation, and endometrial cancer s/p CHILANGO-SBO 07/15/2018, last chemo treatment 12/04/2018. Placed on observation for syncopal episode on 02/15. Tentatively scheduled for elective left total knee replacement today with Dr. Hinkle on 02/20. Syncope --troponin neg x 2 --CXR: unremarkable --ECG: no acute ischemic changess --US carotid: no significant stenosis --CT head negative for acute process; mild nonspecific bilateral frontal subcortical white matter low-attenuation, possibly chronic microvascular ischemic changes --telemetry monitoring --seen and evaluated by neurology: no further workup --cardiology following Diastolic heart failure --08/1018 Echo: mild LVH; LV systolic function normal EF 60-65%, Grade I diastolic dysfunction; RV normal; LAE; trace MR; possible , SEBASTIAN 1.0cm2; mild AI; small pericardial effusion <1cm --continue HCTZ --repeat echo today Endometrial cancer s/p CHILANGO-BSO --last chemo 12/04/18 --followed by Dr. Rubi Thyroid nodules --01/23 US thyroid: 2 nodules moderately suspicious; 1 nodule highly suspicious recommendation FNA; needs followup h/o DVT --not on anticoagulation Degenerative joint disease --left TKR tentatively scheduled for Saturday if cleared by cardiology Hypertension --BP stable --continue ToprolXL, amlodipine Hypokalemia --repleted in ED, repeat bmp pending FEN Fluids: PO intake adequate Electrolytes: replete as indicated Nutrition: low sodium DVT prophylaxis: subq heparin Dispo: continues to require inpatient care. Full code. Visit type - Emergency Visit Emergency Visit: Yes ED Registration Date: 02/17/19 Care time: The patient presented to the Emergency Department on the above date and was hospitalized for further evaluation of their emergent condition. - New Patient This patient is new to me today: No - Critical Care Critical Care patient: No
[2019-02-18 08:09] LABS: CALCIUM 8.7 mg/dl (8.5-10); CREATININE 0.8 mg/dl (0.55-1.3); MAGNESIUM 1.7 mg/dL (1.8-2.4); POTASSIUM 3.5 mmol/L (3.5-5.1)
[2019-02-18] MEDS ORDERED: MAGNESIUM OXIDE 400 MG TABLET (FP) PO ONE (09:00)
[2019-02-18] MEDS: metoPROLOL SUCCINATE 25 MG TAB.SR.24H (FP) PO SCH (09:12)
[2019-02-18] MEDS: amLODIPine BESYLATE 10 MG TABLET (FP) PO SCH (09:13)
[2019-02-18] MEDS: HYDROCHLOROTHIAZIDE 25 MG TABLET (FP) PO SCH (09:13)
--- NOTE | 2019-02-18 09:55 | PN ---
Progress Note (short form) - Note Progress Note: Ortho Pt seen and examined Selected Entries 02/18/19 08:00 Temperature 97.9 F Pulse Rate 103 H Respiratory 18 Rate Blood Pressure 122/67 Laboratory Tests 02/16/19 02/17/19 20:40 07:29 WBC 6.6 Hgb 11.9 Hct 36.4 Plt Count 213 PT with INR 13.0 INR 1.16 left knee- + swelling, + ttp, decr rom, nvi a/p cardio/neuro clearance echo pending OR tentatively for Saturday if cleared d/w Dr. Hinkle
[2019-02-18] MEDS ORDERED: POTASSIUM CHLORIDE TABS 20 MEQ TABLET.ER (FP) PO ONE (12:15)
--- NOTE | 2019-02-18 12:41 | EKG ---
Test Reason : Blood Pressure : / mmHG Vent. Rate : 089 BPM Atrial Rate : 089 BPM P-R Int : 174 ms QRS Dur : 092 ms QT Int : 368 ms P-R-T Axes : 053 050 017 degrees QTc Int : 447 ms SINUS RHYTHM WITH FREQUENT PREMATURE VENTRICULAR COMPLEXES OTHERWISE NORMAL ECG WHEN COMPARED WITH ECG OF 16-FEB-2019 21:00, PREMATURE VENTRICULAR COMPLEXES ARE NOW PRESENT Confirmed by KENNETH SERNA, DAXA ([id number]) on 02/18/2019 12:41:15 PM Referred By: DR COX Confirmed By:DAXA COOPER MD
--- NOTE | 2019-02-18 16:14 | PN ---
Progress Note (short form) - Note Progress Note: s: no cp sob palps dizzy Current Medications Generic Name Dose Route Start Last Admin Trade Name Freq PRN Reason Stop Dose Admin Amlodipine Besylate 10 mg 02/17/19 10:00 02/18/19 09:13 Norvasc - PO 10 mg DAILY ROMÁN Administration Gabapentin 300 mg 02/17/19 00:53 Neurontin - PO Q8H PRN PAIN Heparin Sodium (Porcine) 5,000 unit 02/17/19 06:00 02/18/19 13:08 Heparin - SQ 5,000 unit TID ROMÁN Administration Hydrochlorothiazide 25 mg 02/17/19 10:00 02/18/19 09:13 Hctz - PO 25 mg DAILY ROMÁN Administration Metoprolol Succinate 25 mg 02/17/19 10:00 02/18/19 09:12 Toprol Xl - PO 25 mg DAILY ROMÁN Administration Vital Signs Period Temp Pulse Resp BP Sys/Harrison Pulse Ox Last 24 Hr 97.9 F-98.3 F 90-105 18-19 122-145/58-77 96-100 Constitutional: Yes: Well Nourished, No Distress, Obese Eyes: No: Sclera Icterus Respiratory: Yes: CTA Bilaterally. No: Accessory Muscle Use, Rales, Wheezes Gastrointestinal: Yes: Normal Bowel Sounds. No: Distention, Hepatomegaly, Palpable Mass, Tenderness Cardiovascular: Yes: Regular Rate and Rhythm JVD: No Heart Sounds: Yes: S1, S2. No: Gallop Murmur: Yes: Systolic Murmur (soft heart sounds--cannot hear s1/s2. hi-pitched syst murmur LUSB). No: Diastolic Murmur Musculoskeletal: Yes: Other (No kyphosis) Extremities: No: Cool, Cyanosis Edema: No Peripheral Pulses: 2+ Left Carotid, 2+ Right Carotid, 2+ Left Doralis Pedis, 2+ Right Dorsalis Pedis Integumentary: No: Jaundice Neurological: Yes: Alert, Oriented (x3) Psychiatric: No: Agitated CBC, BMP 02/17/19 07:29 02/18/19 07:27 Assessment/Plan ECG: NSR, WNL (normal intervals) CXR: clear lungs/pleura CT head: no acute pathology Carotid dopplers: no obstructive plaque tele: sr syncope: -? atypical vasovagal episode, given prodrome of intense flushing. however no identifiable vasovagal triggers -TIA/sz unlikely, per neuro input -echo report pending, i reviewed images, nl lvef, mild-mod , no severe valve dz. -she is not orthostatic here, bun/creat unremarkable--ok to cont home bp meds including thiazide -tele benign HTN: -cont current meds preop: -no cardiac contraindications to planned knee surgery
--- NOTE | 2019-02-18 16:17 | ECHO ---
Name: RAFFI SALINAS Exam:Adult Echocardiogram Study Date: 02/18/2019 02:10 PM Age: 68 yrs Reason For Study: SYNCOPE Height: 60 in Weight: 243 lb BSA: 2.0 m2 MMode/2D Measurements & Calculations IVSd: 0.92 cm Ao root diam: 2.8 cm LVIDd: 4.0 cm LA dimension: 2.8 cm LVIDs: 2.7 cm LVPWd: 1.00 cm EDV(Teich): 69.6 ml LVOT diam: 2.0 cm ESV(Teich): 27.5 ml Doppler Measurements & Calculations MV E max rupali: 86.4 cm/sec MV A max rupali: 132.6 cm/sec MV dec slope: 743.5 cm/sec2 MV E/A: 0.65 Ao V2 max: 226.5 cm/sec LV V1 max P.1 mmHg Ao max P.7 mmHg LV V1 mean P.6 mmHg Ao V2 mean: 167.1 cm/sec LV V1 max: 88.2 cm/sec Ao mean P.0 mmHg LV V1 mean: 58.4 cm/sec Ao V2 VTI: 46.2 cm LV V1 VTI: 18.6 cm SEBASTIAN(I,D): 1.3 cm2 SEBASTIAN(V,D): 1.2 cm2 SV(LVOT): 59.8 ml PA V2 max: 86.4 cm/sec PA max P.0 mmHg Procedure A two-dimensional transthoracic echocardiogram with color flow and Doppler was performed. The study w as technically difficult with many images being suboptimal in quality. Left Ventricle The left ventricular size, thickness and function are normal. The left ventricle is not well visualiz ed. The left ventricular ejection fraction is normal. E/A reversal consistent with but not diagnostic of poor LV compliance. Regional wall motion abnormalities cannot be excluded due to limited visualization. Right Ventricle The right ventricle is not well visualized. Atria Normal left and right atrial size and function. Mitral Valve The mitral valve is not well visualized. There is no mitral valve stenosis. There is mild mitral regurgitation. Tricuspid Valve The tricuspid valve is not well visualized. There is no tricuspid stenosis. There was insufficient TR detected to calculate RV systolic pressure. Aortic Valve The aortic valve is not well visualized. Mild valvular aortic stenosis. No aortic regurgitation is pr esent. Pulmonic Valve The pulmonic valve is not well visualized. Great Vessels The aortic root is normal size. Pericardium/Pleura There is no pericardial effusion. Interpretation Summary The left ventricular size, thickness and function are normal The left ventricular ejection fraction is normal. Regional wall motion abnormalities cannot be excluded due to limited visualization. The study was technically difficult with many images being suboptimal in quality. The left ventricle is not well visualized. There is mild mitral regurgitation. E/A reversal consistent with but not diagnostic of poor LV compliance There was insufficient TR detected to calculate RV systolic pressure. Mild valvular aortic stenosis. The tricuspid valve is not well visualized. The mitral valve is not well visualized. MD Fazal Younger 02/18/2019 04:17 PM
[2019-02-19] MEDS: HEPARIN NA (PORCINE) 5,000 UNITS/ML 1ML VIAL SQ SCH (06:21)
[2019-02-19 08:11] LABS: CREATININE 0.8 mg/dl (0.55-1.3); MAGNESIUM 1.8 mg/dL (1.8-2.4); POTASSIUM 3.8 mmol/L (3.5-5.1)
[2019-02-19] MEDS: HYDROCHLOROTHIAZIDE 25 MG TABLET (FP) PO SCH (09:44)
[2019-02-19] MEDS: metoPROLOL SUCCINATE 25 MG TAB.SR.24H (FP) PO SCH (09:46)
[2019-02-19] MEDS: amLODIPine BESYLATE 10 MG TABLET (FP) PO SCH (09:46)
--- NOTE | 2019-02-19 10:58 | PN ---
Progress Note (short form) - Note Progress Note: Ortho Pt seen and examined Selected Entries 02/19/19 10:00 Temperature 98.2 F Pulse Rate 88 Respiratory 18 Rate Blood Pressure 119/66 Laboratory Tests 02/17/19 07:29 WBC 6.6 Hgb 11.9 Hct 36.4 Plt Count 213 left knee- + swelling, + ttp, decr rom, nvi a/p Pt has been cleared by cardio for surgery OR tomorrow for left erick tkr NPO after midnight hold heparin d/w Dr. Hinkle
--- NOTE | 2019-02-19 11:59 | EKG ---
Test Reason : Blood Pressure : / mmHG Vent. Rate : 095 BPM Atrial Rate : 095 BPM P-R Int : 160 ms QRS Dur : 084 ms QT Int : 374 ms P-R-T Axes : 039 047 026 degrees QTc Int : 469 ms SINUS RHYTHM WITH FREQUENT PREMATURE VENTRICULAR COMPLEXES POSSIBLE LEFT ATRIAL ENLARGEMENT POSSIBLE ANTERIOR INFARCT , AGE UNDETERMINED ABNORMAL ECG WHEN COMPARED WITH ECG OF 17-FEB-2019 06:55, NO SIGNIFICANT CHANGE WAS FOUND Confirmed by JARED SERNA, IRIS ([id number]) on 02/19/2019 11:59:11 AM Referred By: Doug COX Confirmed By:IRIS COLEMAN MD
--- NOTE | 2019-02-19 14:53 | PN ---
Progress Note (short form) - Note Progress Note: s: no cp sob palps dizzy Current Medications Amlodipine Besylate (Norvasc -) 10 mg PO DAILY [facility] Last Admin: 02/19/19 09:46 Dose: 10 mg Gabapentin (Neurontin -) 300 mg PO Q8H PRN PRN Reason: PAIN Hydrochlorothiazide (Hctz -) 25 mg PO DAILY [facility] Last Admin: 02/19/19 09:44 Dose: 25 mg Metoprolol Succinate (Toprol Xl -) 25 mg PO DAILY [facility] Last Admin: 02/19/19 09:46 Dose: 25 mg Vital Signs Period Temp Pulse Resp BP Sys/Harrison Pulse Ox Last 24 Hr 97.9 F-98.7 F 84-101 17-19 113-134/50-67 94-96 Constitutional: Yes: Well Nourished, No Distress, Obese Eyes: No: Sclera Icterus Respiratory: Yes: CTA Bilaterally. No: Accessory Muscle Use, Rales, Wheezes Gastrointestinal: Yes: Normal Bowel Sounds. No: Distention, Hepatomegaly, Palpable Mass, Tenderness Cardiovascular: Yes: Regular Rate and Rhythm JVD: No Heart Sounds: Yes: S1, S2. No: Gallop Murmur: Yes: Systolic Murmur (soft heart sounds--cannot hear s1/s2. hi-pitched syst murmur LUSB). No: Diastolic Murmur Musculoskeletal: Yes: Other (No kyphosis) Extremities: No: Cool, Cyanosis Edema: No Peripheral Pulses: 2+ Left Carotid, 2+ Right Carotid, 2+ Left Doralis Pedis, 2+ Right Dorsalis Pedis Integumentary: No: Jaundice Neurological: Yes: Alert, Oriented (x3) Psychiatric: No: Agitated Assessment/Plan ECG: NSR, WNL (normal intervals) CXR: clear lungs/pleura CT head: no acute pathology Carotid dopplers: no obstructive plaque syncope: -? atypical vasovagal episode, given prodrome of intense flushing. however no identifiable vasovagal triggers -TIA/sz unlikely, per neuro input -echo report pending, i reviewed images, nl lvef, mild-mod , no severe valve dz. -she is not orthostatic here, bun/creat unremarkable--ok to cont home bp meds including thiazide -tele benign, now dc'ed HTN: -cont current meds preop: -no cardiac contraindications to planned knee surgery
--- NOTE | 2019-02-19 17:13 | PN ---
Physical Exam: SUBJECTIVE: Patient seen and examined sitting on edge of bed. Bilateral knee pain persists. OBJECTIVE: Vital Signs Period Temp Pulse Resp BP Sys/Harrison Pulse Ox Last 24 Hr 97.9 F-98.7 F 84-101 17-18 113-134/50-67 94-96 GENERAL: Awake, alert, and fully oriented, in mild distress secondary to bilateral knee pain HEAD: Normal with no signs of trauma. EYES: Pupils equal, round and reactive to light, extraocular movements intact, sclera anicteric, conjunctiva clear. LUNGS: CTA HEART: Regular rate and rhythm, normal S1 and S2 ABDOMEN: Soft, nontender, not distended MUSCULOSKELETAL: Significant tenderness bilateral knees and legs UPPER EXTREMITIES: 2+ pulses, warm, well-perfused. No cyanosis. No clubbing. No peripheral edema. LOWER EXTREMITIES: 2+ pulses, warm, well-perfused. Bilateral knee tenderness. No peripheral edema. NEUROLOGICAL: Cranial nerves II-XII intact. Normal speech. Gait not observed. Laboratory Results - last 24 hr 02/19/19 07:25 Sodium 140 Potassium 3.8 Chloride 104 Carbon Dioxide 27 Anion Gap 9 BUN 20.0 H Creatinine 0.8 Est GFR (CKD-EPI)AfAm 89.04 Est GFR (CKD-EPI)NonAf 76.83 Random Glucose 129 H Calcium 9.0 Magnesium 1.8 Active Medications Generic Name Dose Route Start Last Admin Trade Name Freq PRN Reason Stop Dose Admin Amlodipine Besylate 10 mg 02/17/19 10:00 02/19/19 09:46 Norvasc - PO 10 mg DAILY ROMÁN Administration Gabapentin 300 mg 02/17/19 00:53 Neurontin - PO Q8H PRN PAIN Hydrochlorothiazide 25 mg 02/17/19 10:00 02/19/19 09:44 Hctz - PO 25 mg DAILY ROMÁN Administration Metoprolol Succinate 25 mg 02/17/19 10:00 02/19/19 09:46 Toprol Xl - PO 25 mg DAILY ROMÁN Administration ASSESSMENT/PLAN 68 year-old female with a PMH significant for HTN, h/o DVT not on anticoagulation, and endometrial cancer s/p CHILANGO-SBO 07/15/2018, last chemo treatment 12/04/2018. Placed on observation for syncopal episode on 02/15. Scheduled for elective left total knee replacement tomorrow morning. Syncope --troponin neg x 2 --CXR: unremarkable --ECG: no acute ischemic changess --US carotid: no significant stenosis --CT head negative for acute process; mild nonspecific bilateral frontal subcortical white matter low-attenuation, possibly chronic microvascular ischemic changes --telemetry monitoring --seen and evaluated by neurology: no further workup --seen and evaluated by cardiology: no cardiac contraindication to planned knee surgery Diastolic heart failure --08/1018 Echo: mild LVH; LV systolic function normal EF 60-65%, Grade I diastolic dysfunction; RV normal; LAE; trace MR; possible , SEBASTIAN 1.0cm2; mild AI; small pericardial effusion <1cm --02/18 Echo: technically difficult study; LV normal, EF normal; RV not well- visualized; mild MR; mild --continue HCTZ Endometrial cancer s/p CHILANGO-BSO --last chemo 12/04/18 --followed by Dr. Rubi Thyroid nodules --01/23 US thyroid: 2 nodules moderately suspicious; 1 nodule highly suspicious recommendation FNA; needs followup h/o DVT --not on anticoagulation Degenerative joint disease --left TKR tomorrow AM Hypertension --BP stable --continue ToprolXL, amlodipine FEN Fluids: PO intake adequate Electrolytes: replete as indicated Nutrition: NPO after midnight DVT prophylaxis: subq heparin HOLD Dispo: continues to require inpatient care. Full code. Visit type - Emergency Visit Emergency Visit: Yes ED Registration Date: 02/18/19 Care time: The patient presented to the Emergency Department on the above date and was hospitalized for further evaluation of their emergent condition. - New Patient This patient is new to me today: No - Critical Care Critical Care patient: No
[2019-02-20] MEDS ORDERED: SODIUM CHLORIDE 0.9% P/F 10 ML VIAL IJ ONE (06:44)
[2019-02-20] MEDS ORDERED: MIDAZOLAM HCL 2 MG/2 ML SINGLE DOSE VIAL ONE (06:44)
[2019-02-20] MEDS ORDERED: BUPIVACAINE LIPOSOME/PF (EXPAREL) 266 MG/20 ML VIAL ONE (06:44)
[2019-02-20] MEDS ORDERED: PROPOFOL 20 ML ONE ×3 (06:47)
[2019-02-20] MEDS ORDERED: VANCOMYCIN 1,000 MG VIAL (RESTRICTED TO ID ONLY) ONE (07:19)
[2019-02-20] MEDS ORDERED: ceFAZolin SODIUM 1 GM VIAL ONE (07:19)
--- NOTE | 2019-02-20 07:35 | PN ---
Physical Exam: SUBJECTIVE: Patient seen and examined OBJECTIVE: Vital Signs Period Temp Pulse Resp BP Sys/Harrison Pulse Ox Last 24 Hr 97.8 F-98.5 F 84-103 18-18 113-134/57-83 95-97 GENERAL: The patient is awake, alert, and fully oriented, in no acute distress. HEAD: Normal with no signs of trauma. EYES: PERRL, extraocular movements intact, sclera anicteric, conjunctiva clear. No ptosis. ENT: Ears normal, nares patent, oropharynx clear without exudates, moist mucous membranes. NECK: Trachea midline, full range of motion, supple. LUNGS: Breath sounds equal, clear to auscultation bilaterally, no wheezes, no crackles, no accessory muscle use. HEART: Regular rate and rhythm, S1, S2 without murmur, rub or gallop. ABDOMEN: Soft, nontender, nondistended, normoactive bowel sounds, no guarding, no rebound, no hepatosplenomegaly, no masses. EXTREMITIES: 2+ pulses, warm, well-perfused, no edema. NEUROLOGICAL: Cranial nerves II through XII grossly intact. Normal speech, gait not observed. PSYCH: Normal mood, normal affect. SKIN: Warm, dry, normal turgor, no rashes or lesions noted Laboratory Results - last 24 hr 02/19/19 07:25 Sodium 140 Potassium 3.8 Chloride 104 Carbon Dioxide 27 Anion Gap 9 BUN 20.0 H Creatinine 0.8 Est GFR (CKD-EPI)AfAm 89.04 Est GFR (CKD-EPI)NonAf 76.83 Random Glucose 129 H Calcium 9.0 Magnesium 1.8 Active Medications Generic Name Dose Route Start Last Admin Trade Name Freq PRN Reason Stop Dose Admin Amlodipine Besylate 10 mg 02/17/19 10:00 02/19/19 09:46 Norvasc - PO 10 mg DAILY ROMÁN Administration Gabapentin 300 mg 02/17/19 00:53 Neurontin - PO Q8H PRN PAIN Hydrochlorothiazide 25 mg 02/17/19 10:00 02/19/19 09:44 Hctz - PO 25 mg DAILY ROMÁN Administration Metoprolol Succinate 25 mg 02/17/19 10:00 02/19/19 09:46 Toprol Xl - PO 25 mg DAILY ROMÁN Administration ASSESSMENT/PLAN:
[2019-02-20] MEDS ORDERED: MAGNESIUM HYDROX 2400MG/30ML ORAL SUSPENSION 30 ML CUP PO PRN (07:53)
[2019-02-20] MEDS ORDERED: ONDANSETRON 4 MG/2 ML VIAL IVPUSH PRN ×2 (07:53→10:35)
[2019-02-20] MEDS ORDERED: MAG HYDROX/AL HYDROX/SIMETH 30 ML UNIT-DOSE CUP PO PRN (07:53)
[2019-02-20] MEDS ORDERED: LACTATED RINGERS SOLUTION 1,000 ML IV SCH ×2 (08:00→10:45)
[2019-02-20] MEDS ORDERED: PHENYLEPHRINE HCL 10 MG/1 ML SINGLE DOSE VIAL ONE (08:45)
[2019-02-20] MEDS ORDERED: ONDANSETRON 4 MG/2 ML VIAL ONE (09:05)
[2019-02-20] MEDS ORDERED: DEXAMETHASONE SOD PHOSPHATE 4 MG/1 ML VIAL ONE (09:05)
[2019-02-20] MEDS ORDERED: TRANEXAMIC ACID 1000 MG/10 ML VIAL ONE (09:05)
[2019-02-20] MEDS ORDERED: VANCOMYCIN 1,000 MG VIAL (RESTRICTED TO ID ONLY) IVPB ONE ×2 (10:10)
--- NOTE | 2019-02-20 10:24 | OP ---
Operative Note - Note: Operative Date: 02/20/19 (jesusita) Pre-Operative Diagnosis: left knee djd Operation: left erick tkr Post-Operative Diagnosis: Same as Pre-op Surgeon: Berny Hinkle Director Of Application Development: Justus Ayala Anesthesiologist/OIL TANK CAR CLEANER: Dottie Thomas Anesthesia: Spinal, Local Specimens Removed: bone fragments Estimated Blood Loss (mls): 100
[2019-02-20] MEDS ORDERED: oxyCODONE HCL 5 MG TABLET PO PRN (10:35)
[2019-02-20] MEDS ORDERED: traMADol HCL 50 MG TABLET PO PRN (10:35)
[2019-02-20] MEDS: ACETAMINOPHEN 325 MG TABLET (FP) PO SCH ×2 (10:51→23:18)
[2019-02-20] MEDS ORDERED: oxyCODONE HCL 5 MG TABLET ONE (11:05)
[2019-02-20] MEDS ORDERED: oxyCODONE HCL 10 MG SUSTAINED ACTING TABLET ONE (11:06)
--- NOTE | 2019-02-20 14:11 | PN ---
Documentation entered by Mary Pruett SCRIBE, acting as scribe for Bryanna Donnelly NP. Physical Exam: SUBJECTIVE: Patient seen and examined at bedside. Family members present. All agree patient will go to rehab. OBJECTIVE: Vital Signs Period Temp Pulse Resp BP Sys/Harrison Pulse Ox Last 24 Hr 97.8 F-98.5 F 84-103 18-18 113-134/57-83 95-97 GENERAL: Awake, alert, and fully oriented, in mild distress secondary to bilateral knee pain HEAD: Normal with no signs of trauma. EYES: Pupils equal, round and reactive to light, extraocular movements intact, sclera anicteric, conjunctiva clear. LUNGS: CTA HEART: Regular rate and rhythm, normal S1 and S2 ABDOMEN: Soft, nontender, not distended MUSCULOSKELETAL: Significant tenderness bilateral knees and legs UPPER EXTREMITIES: 2+ pulses, warm, well-perfused. No cyanosis. No clubbing. No peripheral edema. LOWER EXTREMITIES: 2+ pulses, warm, well-perfused. Bilateral knee tenderness. No peripheral edema. NEUROLOGICAL: Cranial nerves II-XII intact. Normal speech. Gait not observed. Laboratory Results - last 24 hr 02/19/19 07:25 Sodium 140 Potassium 3.8 Chloride 104 Carbon Dioxide 27 Anion Gap 9 BUN 20.0 H Creatinine 0.8 Est GFR (CKD-EPI)AfAm 89.04 Est GFR (CKD-EPI)NonAf 76.83 Random Glucose 129 H Calcium 9.0 Magnesium 1.8 Active Medications Generic Name Dose Route Start Last Admin Trade Name Freq PRN Reason Stop Dose Admin Al Hydroxide/Mg Hydroxide 30 ml 02/20/19 07:53 Mylanta Oral Suspension - PO Q4H PRN DYSPEPSIA Amlodipine Besylate 10 mg 02/17/19 10:00 02/19/19 09:46 Norvasc - PO 10 mg DAILY ROMÁN Administration Aspirin 325 mg 02/21/19 08:00 Asa - PO DAILY@0800 ROMÁN Gabapentin 300 mg 02/17/19 00:53 Neurontin - PO Q8H PRN PAIN Hydrochlorothiazide 25 mg 02/17/19 10:00 02/19/19 09:44 Hctz - PO 25 mg DAILY ROMÁN Administration Cefazolin Sodium/Dextrose 2 gm in 50 mls @ 100 mls/hr 02/20/19 16:00 Ancef 2 Gm Premixed Ivpb - IVPB 02/20/19 18:29 Q8H-IV ROMÁN Lactated Ringer's 1,000 mls @ 125 mls/hr 02/20/19 08:00 Lactated Ringers Solution IV 02/21/19 06:00 ASDIR ROMÁN Magnesium Hydroxide 30 ml 02/20/19 07:53 Milk Of Magnesia - PO PRN PRN CONSTIPATION Metoprolol Succinate 25 mg 02/17/19 10:00 02/19/19 09:46 Toprol Xl - PO 25 mg DAILY ROMÁN Administration Multivitamins/Minerals/Vitamin C 1 tab 02/20/19 10:00 Tab-A-Vit - PO DAILY ROMÁN Ondansetron HCl 4 mg 02/20/19 07:53 Zofran Injection IVPUSH Q6H PRN NAUSEA Pantoprazole Sodium 40 mg 02/20/19 10:00 Protonix - PO DAILY ROMÁN Senna/Docusate Sodium 2 tablet 02/20/19 10:00 Pericolace - PO BID ROMÁN ASSESSMENT/PLAN: 68 year-old female with a PMH significant for HTN, h/o DVT not on anticoagulation, and endometrial cancer s/p CHILANGO-SBO 07/15/2018, last chemo treatment 12/04/2018. Placed on observation for syncopal episode on 02/15. Underwent elective left total knee replacement today. Left total knee replacement --POD #0 --perioperative antibiotics per surgery --pain management per surgery --protonix --bowel regimen --incentive spirometry Syncope --troponin neg x 2 --CXR: unremarkable --ECG: no acute ischemic changess --US carotid: no significant stenosis --CT head negative for acute process; mild nonspecific bilateral frontal subcortical white matter low-attenuation, possibly chronic microvascular ischemic changes --telemetry monitoring --seen and evaluated by neurology: no further workup --seen and evaluated by cardiology: no cardiac contraindication to planned knee surgery Diastolic heart failure --08/1018 Echo: mild LVH; LV systolic function normal EF 60-65%, Grade I diastolic dysfunction; RV normal; LAE; trace MR; possible , SEBASTIAN 1.0cm2; mild AI; small pericardial effusion <1cm --02/18 Echo: technically difficult study; LV normal, EF normal; RV not well- visualized; mild MR; mild --continue HCTZ Endometrial cancer s/p CHILANGO-BSO --last chemo 12/04/18 --followed by Dr. Rubi Thyroid nodules --01/23 US thyroid: 2 nodules moderately suspicious; 1 nodule highly suspicious recommendation FNA; needs followup h/o DVT --not on anticoagulation Degenerative joint disease --left TKR tomorrow AM Hypertension --BP stable --continue ToprolXL, amlodipine FEN Fluids: PO intake adequate Electrolytes: replete as indicated Nutrition: NPO after midnight DVT prophylaxis: subq heparin HOLD Dispo: continues to require inpatient care. Full code. Visit type - Emergency Visit Emergency Visit: Yes ED Registration Date: 02/18/19 Care time: The patient presented to the Emergency Department on the above date and was hospitalized for further evaluation of their emergent condition. - New Patient This patient is new to me today: No - Critical Care Critical Care patient: No Bryanna Donnelly, FAMILY LIVING EDUCATOR: This documentation has been prepared by the Flynn newman Maria, SCRIBE, under my direction and personally reviewed by me in its entirety. I confirm that the documentation accurately reflects all work, treatment, procedures, and medical decision making performed by me.
--- NOTE | 2019-02-20 14:17 | SPEC ---
DATE OF OPERATION: 02/20/2019 PREOPERATIVE DIAGNOSIS: Degenerative joint disease, left knee. POSTOPERATIVE DIAGNOSIS: Degenerative joint disease, left knee. PROCEDURE: Left total knee replacement with robotic-assisted navigation (Makoplasty). SURGICAL ATTENDING: Berny Hinkle MD PULL OVER MACHINE OPERATOR: SCOTT Wilson ANESTHESIA: Regional and spinal. CLOSURE: A Triathlon knee system with a 3 femur, 4 tibia, 11 polyethylene, 32 patella, number 1 Vicryl fascia, 0 and 2-0 subcutaneous, 3-0 Monocryl subcuticular with skin glue for skin, 4-0 undyed Vicryl for pin sites. ESTIMATED BLOOD LOSS: Less than 100 mL. COMPLICATIONS: None. CONDITION: To recovery room in stable condition. DESCRIPTION OF OPERATIVE PROCEDURE: Patient was taken to the operating room on February 20, 2019. Regional and general anesthesia was administered by the anesthesiologist. IV Kefzol and TXA were administered by the anesthesiologist. Well-padded pneumatic tourniquet was placed on the proximal thigh. The left lower extremity was prepped and draped in the usual sterile fashion. The leg was exsanguinated with an Esmarch bandage, and tourniquet was inflated to 275 mmHg. A 12 to 15-cm longitudinal midline incision was incised while centered over the patella. The dissection was carried down to the level of the extensor mechanism with sufficient flaps made to adequately perform the procedure. A medial parapatellar arthrotomy was then performed. We made a cuff of tissue on the patella for later closure. The patella was inverted, the knee was flexed up. The fat pad was excised. The subperiosteal dissection was on the anteromedial proximal tibia around towards the direction of the MCL. The ACL and the PCL were transected and debrided. The meniscal remnants of the medial and lateral meniscus were debrided and removed. This allowed the knee to be able to "be brought forward." The checkpoints were malleted into the tibia and into the femur. Two threaded pins were drilled anteroposteriorly proximal to the knee through the previous incision, through the anterior cortex, then just engaging the posterior cortex. To these pins was assembled the femoral navigation array. One handbreadth below the tibial tubercle, 2 stab incisions were used to drill 2 threaded pins in parallel fashion into the tibia, again through the anterior cortex and just engaging the posterior cortex. To these pins was fastened the tibial arrays. The knee was then registered with the navigation device with center of rotation of the hip, medial and lateral malleoli, both checkpoints, and multiple points on both the femur and the tibia to ensure excellent registration. The navigation device was directed off the "top of the bubbles" on both the femur and the tibia. The navigation passed within less than 0.5 mm to plan. The knee was then thoroughly inspected to remove all osteophytes both medially, laterally, and on the femur and the tibia, and whatever osteophytes were available for dissection. The knee was then taken to extension and to flexion and stressed in both varus and valgus to assess flexion gaps. The virtual position of the components on the navigation device were then manipulated to optimize the position and to ensure equal gaps in both flexion and extension, and both medially and laterally. The robot was then brought into the field and was registered. The cuts were then made both on the femur and on the tibia as to plan. All osteophytes posteriorly were then removed as well. The gaps were then measured again in flexion and extension to be equal in both flexion and extension and medial and laterally. The femoral notch was then made, as we were doing a posterior stabilizing component, with the appropriate sized box. Trial reduction of the femur achieved excellent [id number] fit. A tibial baseplate of appropriate polyethylene thickness was "floated in the knee." It was ensured to be in the excellent position by navigation devices and was pinned in place. The knee was taken through a range of motion, and found to have excellent stability throughout flexion and extension. The patella was calibrated for thickness and osteotomized down to the appropriate level. The appropriate lollipop was used to drill the lug holes in the patella and the trial button was applied. The knee was taken through a range of motion and found to have excellent tracking of the patella, and patella from full extension to full flexion. Trial components were removed, the keel was punched and drilled, and a sclerotic bone on the tibia was drilled to help with cement interdigitation. The knee was thoroughly irrigated with the pulse antibiotic financial aids officer. The real components were then cemented in using monitored arrangement cement techniques with antibiotic cement, and pressurization and extension. After the cement was hardened, the knee was thoroughly inspected to remove any extra cement. The real polyethylene component was then clipped into place. Range of motion, stability, and tracking were as described earlier. The checkpoints and the pins were removed. The knee was thoroughly irrigated with antibiotic irrigation. Vancomycin powder was placed into the knee for antibiotic prophylaxis. The medial parapatellar arthrotomy was then closed using number 1 Vicryl interrupted suture. After closure of the deep layer, the knee was taken through a range of motion, and found to have excellent stability of the patella with no dislocation and no undue tension on the repair. The subcutaneous was pulse antibiotic irrigated, and was then closed with 2-0 Vicryl, 3-0 Monocryl subcuticular with the skin glue for the skin. The distal tibial pin site was irrigated thoroughly as well and then closed with 4-0 undyed Vicryl. A sterile Aquacel dressing was applied, followed by a Collier dressing. Tourniquet was deflated. Total tourniquet time was approximately 75 minutes. No complications. Patient was awakened from anesthesia and transferred to recovery room in stable condition. Postoperative x-rays revealed excellent position of the components. Velma [id number]
[2019-02-20] MEDS ORDERED: CEFAZOLIN 2 GM/D5W 2 GM/50 ML ML IVPB SCH (16:00)
--- NOTE | 2019-02-20 16:27 | PN ---
Progress Note (short form) - Note Progress Note: s: no cp sob palps dizzy Current Medications Generic Name Dose Route Start Last Admin Trade Name Freq PRN Reason Stop Dose Admin Acetaminophen 650 mg 02/20/19 10:45 02/20/19 10:51 Tylenol - PO 02/23/19 10:44 650 mg Q6H ROMÁN Administration Al Hydroxide/Mg Hydroxide 30 ml 02/20/19 07:53 Mylanta Oral Suspension - PO Q4H PRN DYSPEPSIA Amlodipine Besylate 10 mg 02/17/19 10:00 02/19/19 09:46 Norvasc - PO 10 mg DAILY ROMÁN Administration Aspirin 325 mg 02/21/19 08:00 Asa - PO DAILY@0800 ROMÁN Fentanyl 25 mcg 02/20/19 10:35 Sublimaze Injection - IVPUSH [id number] PRN PAIN-PACU ORDER X 4 DOSES ONLY Fentanyl 50 mcg 02/20/19 10:35 Sublimaze Injection - IVPUSH [id number] PRN PAIN-PACU ORDER X 4 DOSES ONLY Gabapentin 300 mg 02/17/19 00:53 Neurontin - PO Q8H PRN PAIN Hydrochlorothiazide 25 mg 02/17/19 10:00 02/19/19 09:44 Hctz - PO 25 mg DAILY ROMÁN Administration Cefazolin Sodium/Dextrose 2 gm in 50 mls @ 100 mls/hr 02/20/19 16:00 Ancef 2 Gm Premixed Ivpb - IVPB 02/20/19 18:29 Q8H-IV ROMÁN Lactated Ringer's 1,000 mls @ 125 mls/hr 02/20/19 08:00 Lactated Ringers Solution IV 02/21/19 06:00 ASDIR ROMÁN Lactated Ringer's 1,000 mls @ 75 mls/hr 02/20/19 10:45 02/20/19 11:00 Lactated Ringers Solution IV 0 mls ASDIR ROMÁN Administration Magnesium Hydroxide 30 ml 02/20/19 07:53 Milk Of Magnesia - PO PRN PRN CONSTIPATION Metoprolol Succinate 25 mg 02/17/19 10:00 02/19/19 09:46 Toprol Xl - PO 25 mg DAILY ROMÁN Administration Multivitamins/Minerals/Vitamin C 1 tab 02/20/19 10:00 Tab-A-Vit - PO DAILY ROMÁN Ondansetron HCl 4 mg 02/20/19 07:53 Zofran Injection IVPUSH Q6H PRN NAUSEA Ondansetron HCl 4 mg 02/20/19 10:35 Zofran Injection IVPUSH Q6H PRN NAUSEA AND/OR VOMITING Oxycodone HCl 5 mg 02/20/19 10:35 02/20/19 11:00 Roxicodone - PO 5 mg Q3H PRN Administration PAIN LEVEL 4-6 Oxycodone HCl 10 mg 02/20/19 10:35 Roxicodone - PO Q3H PRN PAIN LEVEL 6-10 Pantoprazole Sodium 40 mg 02/20/19 10:00 Protonix - PO DAILY ROMÁN Senna/Docusate Sodium 2 tablet 02/20/19 10:00 Pericolace - PO BID ROMÁN Tramadol HCl 50 mg 02/20/19 10:35 02/20/19 12:34 Ultram - PO 50 mg Q3H PRN Administration PAIN LEVEL 1 - 3 Vital Signs Period Temp Pulse Resp BP Sys/Harrison Pulse Ox Last 24 Hr 97.5 F-98.5 F 85-103 12-20 115-142/57-84 96-98 Constitutional: Yes: Well Nourished, No Distress, Obese Eyes: No: Sclera Icterus Respiratory: Yes: CTA Bilaterally. No: Accessory Muscle Use, Rales, Wheezes Gastrointestinal: Yes: Normal Bowel Sounds. No: Distention, Hepatomegaly, Palpable Mass, Tenderness Cardiovascular: Yes: Regular Rate and Rhythm JVD: No Heart Sounds: Yes: S1, S2. No: Gallop Murmur: Yes: Systolic Murmur (soft heart sounds--cannot hear s1/s2. hi-pitched syst murmur LUSB). No: Diastolic Murmur Musculoskeletal: Yes: Other (No kyphosis) Extremities: No: Cool, Cyanosis Edema: No Peripheral Pulses: 2+ Left Carotid, 2+ Right Carotid, 2+ Left Doralis Pedis, 2+ Right Dorsalis Pedis Integumentary: No: Jaundice Neurological: Yes: Alert, Oriented (x3) Psychiatric: No: Agitated CBC, BMP 02/17/19 07:29 02/19/19 07:25 Assessment/Plan ECG: NSR, WNL (normal intervals) CXR: clear lungs/pleura CT head: no acute pathology Carotid dopplers: no obstructive plaque syncope: -? atypical vasovagal episode, given prodrome of intense flushing. however no identifiable vasovagal triggers -TIA/sz unlikely, per neuro input -echo shows nl lvef, mild-mod , no severe valve dz. -she is not orthostatic here, bun/creat unremarkable--ok to cont home bp meds including thiazide -tele was benign here HTN: -cont current meds preop: -s/p knee surgery, rehab pending
[2019-02-20] MEDS ORDERED: oxyCODONE HCL 10 MG SUSTAINED ACTING TABLET PO SCH (22:00)
[2019-02-20] MEDS: SENNOSIDES/DOCUSATE COMBO (SENNA PLUS) TABLET (UD) PO SCH (23:18)
[2019-02-20] MEDS: oxyCODONE HCL 5 MG TABLET PO PRN (23:18)
[2019-02-21] MEDS ORDERED: CEFAZOLIN 2 GM/D5W 2 GM/50 ML ML IVPB SCH (02:00)
[2019-02-21] MEDS: oxyCODONE HCL 5 MG TABLET PO PRN ×4 (05:43→21:42)
[2019-02-21] MEDS: ACETAMINOPHEN 325 MG TABLET (FP) PO SCH ×4 (05:44→21:45)
[2019-02-21] MEDS: ASPIRIN 325 MG TABLET PO SCH (08:00)
--- NOTE | 2019-02-21 08:46 | PN ---
Physical Exam: SUBJECTIVE: Patient seen and examined at bedside. Pt reports feeling better, Left knee pain controlled with pain meds,denies cp, sob,palpitations, abdominal pain, N/V/D or urinary symptoms. OBJECTIVE: Vital Signs Period Temp Pulse Resp BP Sys/Harrison Pulse Ox Last 24 Hr 97.5 F-98.3 F 85-109 12-20 115-147/61-84 88-98 GENERAL: The patient is awake, alert, and fully oriented, in no acute distress. HEAD: Normal with no signs of trauma. EYES: PERRL, extraocular movements intact, sclera anicteric, conjunctiva clear. No ptosis. ENT: Ears normal, nares patent, oropharynx clear without exudates, moist mucous membranes. NECK: Trachea midline, full range of motion, supple. LUNGS: Breath sounds equal, clear to auscultation bilaterally, no wheezes, no crackles, no accessory muscle use. HEART: Regular rate and rhythm, S1, S2 without murmur, rub or gallop. ABDOMEN: Soft, nontender, nondistended, normoactive bowel sounds, no guarding, no rebound, no hepatosplenomegaly, no masses. EXTREMITIES: 2+ pulses, warm, well-perfused, no edema., RT knee - post op dsg intact NEUROLOGICAL: Cranial nerves II through XII grossly intact. Normal speech, gait not observed. PSYCH: Normal mood, normal affect. SKIN: Warm, dry, normal turgor, no rashes or lesions noted Active Medications Generic Name Dose Route Start Last Admin Trade Name Freq PRN Reason Stop Dose Admin Acetaminophen 650 mg 02/20/19 10:45 02/21/19 05:44 Tylenol - PO 02/23/19 10:44 650 mg Q6H ROMÁN Administration Al Hydroxide/Mg Hydroxide 30 ml 02/20/19 07:53 Mylanta Oral Suspension - PO Q4H PRN DYSPEPSIA Amlodipine Besylate 10 mg 02/17/19 10:00 02/19/19 09:46 Norvasc - PO 10 mg DAILY ROMÁN Administration Aspirin 325 mg 02/21/19 08:00 Asa - PO DAILY@0800 ROMÁN Fentanyl 25 mcg 02/20/19 10:35 Sublimaze Injection - IVPUSH [id number] PRN PAIN-PACU ORDER X 4 DOSES ONLY Fentanyl 50 mcg 02/20/19 10:35 Sublimaze Injection - IVPUSH [id number] PRN PAIN-PACU ORDER X 4 DOSES ONLY Gabapentin 300 mg 02/17/19 00:53 Neurontin - PO Q8H PRN PAIN Hydrochlorothiazide 25 mg 02/17/19 10:00 02/19/19 09:44 Hctz - PO 25 mg DAILY ROMÁN Administration Lactated Ringer's 1,000 mls @ 75 mls/hr 02/20/19 10:45 02/20/19 11:00 Lactated Ringers Solution IV 0 mls ASDIR ROMÁN Administration Magnesium Hydroxide 30 ml 02/20/19 07:53 Milk Of Magnesia - PO PRN PRN CONSTIPATION Metoprolol Succinate 25 mg 02/17/19 10:00 02/19/19 09:46 Toprol Xl - PO 25 mg DAILY ROMÁN Administration Multivitamins/Minerals/Vitamin C 1 tab 02/20/19 10:00 Tab-A-Vit - PO DAILY ROMÁN Ondansetron HCl 4 mg 02/20/19 07:53 Zofran Injection IVPUSH Q6H PRN NAUSEA Ondansetron HCl 4 mg 02/20/19 10:35 Zofran Injection IVPUSH Q6H PRN NAUSEA AND/OR VOMITING Oxycodone HCl 5 mg 02/20/19 10:35 02/20/19 11:00 Roxicodone - PO 5 mg Q3H PRN Administration PAIN LEVEL 4-6 Oxycodone HCl 10 mg 02/20/19 10:35 02/21/19 05:43 Roxicodone - PO 10 mg Q3H PRN Administration PAIN LEVEL 6-10 Pantoprazole Sodium 40 mg 02/20/19 10:00 Protonix - PO DAILY [facility] Senna/Docusate Sodium 2 tablet 02/20/19 10:00 02/20/19 23:18 Pericolace - PO 2 tablet BID [facility] Administration Tramadol HCl 50 mg 02/20/19 10:35 02/20/19 12:34 Ultram - PO 50 mg Q3H PRN Administration PAIN LEVEL 1 - 3 ASSESSMENT/PLAN: 68 year-old female with a PMH significant for HTN, h/o DVT not on anticoagulation, and endometrial cancer s/p CHILANGO-SBO 07/15/2018, last chemo treatment 12/04/2018. Placed on observation for syncopal episode on 02/15. Underwent elective left total knee replacement today. *Degenerative joint disease -s/p Left total knee replacement -POD #1\ - management per sx - bowel regimen - encourage to use IS - PT *Syncope -troponin neg x 2 -CXR: unremarkable -ECG: no acute ischemic changess -US carotid: no significant stenosis -CT head negative for acute process; mild nonspecific bilateral frontal subcortical white matter low-attenuation, possibly chronic microvascular ischemic changes -telemetry monitoring- [id number], no cardiac events * Hx of Diastolic heart failure- stable -08/1018 Echo: mild LVH; LV systolic function normal EF 60-65%, Grade I diastolic dysfunction; RV normal; LAE; trace MR; possible , SEBASTIAN 1.0cm2; mild AI; small pericardial effusion <1cm -02/18 Echo: technically difficult study; LV normal, EF normal; RV not well- visualized; mild MR; mild --continue HCTZ * Endometrial cancer s/p CHILANGO-BSO -last chemo 12/04/18 -followed by onc Dr. Rubi *Thyroid nodules -01/23 US thyroid: 2 nodules moderately suspicious; 1 nodule highly suspicious recommendation FNA; needs followup - TFT;s - wnl * Hx of DVT -not on anticoagulation *Hypertension-BP stable -continue Toprol XL, amlodipine FEN Fluids: PO intake adequate Electrolytes: replete as indicated Nutrition: NPO after midnight DVT prophylaxis: ASA 325mg as per ortho Dispo: continues to require inpatient care. Full code. Visit type - Emergency Visit Emergency Visit: Yes ED Registration Date: 02/18/19 Care time: The patient presented to the Emergency Department on the above date and was hospitalized for further evaluation of their emergent condition. - New Patient This patient is new to me today: Yes Date on this admission: 02/28/19 - Critical Care Critical Care patient: No
[2019-02-21 08:56] LABS: ALBUMIN 3.5 g/dl (3.4-5.0); CREATININE 0.8 mg/dl (0.55-1.3); MAGNESIUM 1.4 mg/dL (1.8-2.4); POTASSIUM 3.7 mmol/L (3.5-5.1); TOT PROT 6.6 g/dl (6.4-8.2)
[2019-02-21] MEDS: HYDROCHLOROTHIAZIDE 25 MG TABLET (FP) PO SCH (10:10)
[2019-02-21 10:13] LABS: BASO % 0.6 % (0-2.0); EOS % 0.1 % (0-4.5); HEMATOCRIT 35.3 % (32.4-45.2); HEMOGLOBIN 11.9 GM/dL (10.7-15.3); MCH 29.5 pg (25.7-33.7); MCHC 33.6 g/dl (32.0-36.0); MEAN CELL VOLUME 87.8 fl (80-96); MEAN PLT VOLUME 8.4 fl (7.5-11.1); MONO % 9.3 % (3.8-10.2); PLATELET COUNT 230 K/MM3 (134-434); RBC 4.02 M/mm3 (3.60-5.2); RDW 14.4 % (11.6-15.6); WHITE BLOOD COUNT 10.3 K/mm3 (4.0-10.0)
[2019-02-21] MEDS: amLODIPine BESYLATE 10 MG TABLET (FP) PO SCH (10:55)
[2019-02-21] MEDS: SENNOSIDES/DOCUSATE COMBO (SENNA PLUS) TABLET (UD) PO SCH ×2 (10:56→21:38)
[2019-02-21] MEDS: MULTIVITAMINS (DAILY MVI) TABLET (FP) PO SCH (10:56)
[2019-02-21] MEDS: PANTOPRAZOLE 40 MG TABLET PO SCH (10:56)
[2019-02-21] MEDS: metoPROLOL SUCCINATE 25 MG TAB.SR.24H (FP) PO SCH (10:56)
--- NOTE | 2019-02-21 11:43 | PN ---
Progress Note (short form) - Note Progress Note: Ortho Pt seen and examined s/p left erick tkr pod #1 Selected Entries 02/21/19 06:00 Temperature 98.3 F Pulse Rate 109 H Respiratory 18 Rate Blood Pressure 132/74 Laboratory Tests 02/21/19 07:40 WBC 10.3 H Hgb 11.9 Hct 35.3 Plt Count 230 dressing c/d/i, calf soft, nt rom 0-30., nvi a/p PT dvt ppx pain control d/c to rehab on Saturday
[2019-02-22] MEDS: ACETAMINOPHEN 325 MG TABLET (FP) PO SCH ×5 (05:19→22:14)
[2019-02-22 07:32] LABS: HEMATOCRIT 32.1 % (32.4-45.2); HEMOGLOBIN 10.9 GM/dL (10.7-15.3); MCH 29.6 pg (25.7-33.7); MCHC 34.1 g/dl (32.0-36.0); MEAN CELL VOLUME 86.9 fl (80-96); MEAN PLT VOLUME 7.8 fl (7.5-11.1); PLATELET COUNT 196 K/MM3 (134-434); RBC 3.69 M/mm3 (3.60-5.2); RDW 14.7 % (11.6-15.6); WHITE BLOOD COUNT 8.3 K/mm3 (4.0-10.0)
[2019-02-22 07:58] LABS: BLOOD UREA NITROGEN 20.4 mg/dL (7-18); CALCIUM 8.8 mg/dL (8.5-10.1); CREATININE 0.8 mg/dL (0.55-1.3); POTASSIUM 3.5 mmol/L (3.5-5.1)
[2019-02-22] MEDS: oxyCODONE HCL 5 MG TABLET PO PRN ×3 (08:29→22:14)
[2019-02-22] MEDS: ASPIRIN 325 MG TABLET PO SCH (08:30)
[2019-02-22] MEDS: metoPROLOL SUCCINATE 25 MG TAB.SR.24H (FP) PO SCH (09:31)
[2019-02-22] MEDS: SENNOSIDES/DOCUSATE COMBO (SENNA PLUS) TABLET (UD) PO SCH ×2 (09:32→22:14)
[2019-02-22] MEDS: amLODIPine BESYLATE 10 MG TABLET (FP) PO SCH (09:32)
[2019-02-22] MEDS: PANTOPRAZOLE 40 MG TABLET PO SCH (09:32)
[2019-02-22] MEDS: HYDROCHLOROTHIAZIDE 25 MG TABLET (FP) PO SCH (09:32)
[2019-02-22] MEDS: MULTIVITAMINS (DAILY MVI) TABLET (FP) PO SCH (09:33)
--- NOTE | 2019-02-22 11:01 | PN ---
Physical Exam: SUBJECTIVE: Patient seen and examined OBJECTIVE: Vital Signs Period Temp Pulse Resp BP Sys/Harrison Pulse Ox Last 24 Hr 98.1 F-98.4 F 87-104 17-20 113-137/65-77 94-99 GENERAL: The patient is awake, alert, and fully oriented, in no acute distress. HEAD: Normal with no signs of trauma. EYES: PERRL, extraocular movements intact, sclera anicteric, conjunctiva clear. No ptosis. ENT: Ears normal, nares patent, oropharynx clear without exudates, moist mucous membranes. NECK: Trachea midline, full range of motion, supple. LUNGS: Breath sounds equal, clear to auscultation bilaterally, no wheezes, no crackles, no accessory muscle use. HEART: Regular rate and rhythm, S1, S2 without murmur, rub or gallop. ABDOMEN: Soft, nontender, nondistended, normoactive bowel sounds, no guarding, no rebound, no hepatosplenomegaly, no masses. EXTREMITIES: 2+ pulses, warm, well-perfused, no edema., RT knee - post op dsg intact NEUROLOGICAL: Cranial nerves II through XII grossly intact. Normal speech, gait not observed. PSYCH: Normal mood, normal affect. SKIN: Warm, dry, normal turgor, no rashes or lesions noted Laboratory Results - last 24 hr 02/22/19 02/22/19 06:00 06:00 WBC 8.3 RBC 3.69 Hgb 10.9 Hct 32.1 L MCV 86.9 MCH 29.6 MCHC 34.1 RDW 14.7 Plt Count 196 MPV 7.8 Sodium 139 Potassium 3.5 Chloride 101 Carbon Dioxide 30 Anion Gap 7 L BUN 20.4 H Creatinine 0.8 Est GFR (CKD-EPI)AfAm 89.04 Est GFR (CKD-EPI)NonAf 76.83 Random Glucose 120 H Calcium 8.8 Active Medications Generic Name Dose Route Start Last Admin Trade Name Freq PRN Reason Stop Dose Admin Acetaminophen 650 mg 02/20/19 10:45 02/22/19 05:19 Tylenol - PO 02/23/19 10:44 650 mg Q6H ROMÁN Administration Al Hydroxide/Mg Hydroxide 30 ml 02/20/19 07:53 Mylanta Oral Suspension - PO Q4H PRN DYSPEPSIA Amlodipine Besylate 10 mg 02/17/19 10:00 02/22/19 09:32 Norvasc - PO 10 mg DAILY ROMÁN Administration Aspirin 325 mg 02/21/19 08:00 02/22/19 08:30 Asa - PO 325 mg DAILY@0800 ROMÁN Administration Fentanyl 25 mcg 02/20/19 10:35 Sublimaze Injection - IVPUSH [id number] PRN PAIN-PACU ORDER X 4 DOSES ONLY Fentanyl 50 mcg 02/20/19 10:35 Sublimaze Injection - IVPUSH [id number] PRN PAIN-PACU ORDER X 4 DOSES ONLY Gabapentin 300 mg 02/17/19 00:53 Neurontin - PO Q8H PRN PAIN Hydrochlorothiazide 25 mg 02/17/19 10:00 02/22/19 09:32 Hctz - PO 25 mg DAILY ROMÁN Administration Magnesium Hydroxide 30 ml 02/20/19 07:53 Milk Of Magnesia - PO PRN PRN CONSTIPATION Metoprolol Succinate 25 mg 02/17/19 10:00 02/22/19 09:31 Toprol Xl - PO 25 mg DAILY ROMÁN Administration Multivitamins/Minerals/Vitamin C 1 tab 02/20/19 10:00 02/22/19 09:33 Tab-A-Vit - PO 1 tab DAILY ROMÁN Administration Ondansetron HCl 4 mg 02/20/19 07:53 Zofran Injection IVPUSH Q6H PRN NAUSEA Ondansetron HCl 4 mg 02/20/19 10:35 Zofran Injection IVPUSH Q6H PRN NAUSEA AND/OR VOMITING Oxycodone HCl 5 mg 02/20/19 10:35 02/20/19 11:00 Roxicodone - PO 5 mg Q3H PRN Administration PAIN LEVEL 4-6 Oxycodone HCl 10 mg 02/20/19 10:35 02/22/19 08:29 Roxicodone - PO 10 mg Q3H PRN Administration PAIN LEVEL 6-10 Pantoprazole Sodium 40 mg 02/20/19 10:00 02/22/19 09:32 Protonix - PO 40 mg DAILY ROMÁN Administration Senna/Docusate Sodium 2 tablet 02/20/19 10:00 02/22/19 09:32 Pericolace - PO 2 tablet BID ROMÁN Administration Tramadol HCl 50 mg 02/20/19 10:35 02/20/19 12:34 Ultram - PO 50 mg Q3H PRN Administration PAIN LEVEL 1 - 3 ASSESSMENT/PLAN: 68 year-old female with a PMH significant for HTN, h/o DVT not on anticoagulation, and endometrial cancer s/p CHILANGO-SBO 07/15/2018, last chemo treatment 12/04/2018. Placed on observation for syncopal episode on 02/15. Underwent elective left total knee replacement today. Degenerative joint disease -s/p Left total knee replacement -POD #2 - management per sx - bowel regimen - encourage to use IS - PT Syncope -troponin neg x 2 -CXR: unremarkable -ECG: no acute ischemic changess -US carotid: no significant stenosis -CT head negative for acute process; mild nonspecific bilateral frontal subcortical white matter low-attenuation, possibly chronic microvascular ischemic changes -telemetry monitoring- [id number], no cardiac events Diastolic heart failure- stable -08/1018 Echo: mild LVH; LV systolic function normal EF 60-65%, Grade I diastolic dysfunction; RV normal; LAE; trace MR; possible , SEBASTIAN 1.0cm2; mild AI; small pericardial effusion <1cm -02/18 Echo: technically difficult study; LV normal, EF normal; RV not well- visualized; mild MR; mild --continue HCTZ Endometrial cancer s/p CHILANGO-BSO -last chemo 12/04/18 -followed by onc Dr. Rubi Thyroid nodules -01/23 US thyroid: 2 nodules moderately suspicious; 1 nodule highly suspicious recommendation FNA; needs followup - TFT;s - wnl Hypertension-BP stable -continue Toprol XL, amlodipine FEN Fluids: PO intake adequate Electrolytes: replete as indicated Nutrition: NPO after midnight DVT prophylaxis: ASA 325mg as per ortho Dispo: Discharge to rehab on Saturday. Full code. Visit type - Emergency Visit Emergency Visit: Yes ED Registration Date: 02/18/19 Care time: The patient presented to the Emergency Department on the above date and was hospitalized for further evaluation of their emergent condition. - New Patient This patient is new to me today: Yes Date on this admission: 02/26/19 - Critical Care Critical Care patient: No - Discharge Referral Referred to [facility] Med P.C.: No Physician Referral: Tyler Best MD ([facility])
[2019-02-22 11:52] LABS: MAGNESIUM 1.7 mg/dL (1.8-2.4)
[2019-02-22] MEDS ORDERED: MAGNESIUM SULF 50% (8.12 MEQ/2 ML-1 GM VIAL) IVPB ONE (12:22)
--- NOTE | 2019-02-22 14:30 | PN ---
Progress Note (short form) - Note Progress Note: Ortho Pt seen and examined s/p left erick tkr pod #2 Selected Entries 02/22/19 06:00 Temperature 98.1 F Pulse Rate 98 H Respiratory 18 Rate Blood Pressure 137/74 Laboratory Tests 02/22/19 06:00 WBC 8.3 Hgb 10.9 Hct 32.1 L Plt Count 196 dressing c/d/i, calf soft, nt rom 0-40., nvi a/p PT dvt ppx pain control d/c to rehab on Saturday
[2019-02-23] MEDS: ACETAMINOPHEN 325 MG TABLET (FP) PO SCH (04:45)
[2019-02-23] MEDS: oxyCODONE HCL 5 MG TABLET PO PRN ×2 (06:44→10:06)
[2019-02-23] MEDS: ASPIRIN 325 MG TABLET PO SCH (08:25)
[2019-02-23 09:08] LABS: BASO % 0.8 % (0-2.0); EOS % 0.4 % (0-4.5); MCH 29.7 pg (25.7-33.7); MCHC 33.3 g/dl (32.0-36.0); MEAN CELL VOLUME 89.4 fl (80-96); MEAN PLT VOLUME 8.3 fl (7.5-11.1); MONO % 8.9 % (3.8-10.2); NEUT % 55.9 % (42.8-82.8); PLATELET COUNT 208 K/MM3 (134-434); RBC 3.69 M/mm3 (3.60-5.2); RDW 13.6 % (11.6-15.6); WHITE BLOOD COUNT 7.2 K/mm3 (4.0-10.8)
[2019-02-23 09:19] LABS: ALBUMIN 3.3 g/dl (3.4-5.0); BILIRUBIN,TOTAL 1.2 mg/dl (0.2-1); CALCIUM 8.7 mg/dl (8.5-10); CREATININE 0.9 mg/dl (0.55-1.3); MAGNESIUM 1.6 mg/dL (1.8-2.4); POTASSIUM 3.1 mmol/L (3.5-5.1); TOT PROT 6.3 g/dl (6.4-8.2)
[2019-02-23] MEDS: HYDROCHLOROTHIAZIDE 25 MG TABLET (FP) PO SCH (10:05)
[2019-02-23] MEDS: amLODIPine BESYLATE 10 MG TABLET (FP) PO SCH (10:08)
[2019-02-23] MEDS: SENNOSIDES/DOCUSATE COMBO (SENNA PLUS) TABLET (UD) PO SCH (10:08)
[2019-02-23] MEDS: PANTOPRAZOLE 40 MG TABLET PO SCH ×2 (10:08→10:09)
[2019-02-23] MEDS: MULTIVITAMINS (DAILY MVI) TABLET (FP) PO SCH (10:09)
[2019-02-23] MEDS: metoPROLOL SUCCINATE 25 MG TAB.SR.24H (FP) PO SCH (10:09)
[2019-02-23] MEDS ORDERED: MAGNESIUM SULF 50% (8.12 MEQ/2 ML-1 GM VIAL) IVPB ONE (10:28)
[2019-02-23] MEDS ORDERED: POTASSIUM CHLORIDE TABS 20 MEQ TABLET.ER (FP) PO ONE ×2 (10:30→12:00)
[2019-02-23] MEDS ORDERED: MAGNESIUM SULFATE IN WATER 2 GM/50 ML IVPB IVPB ONE ×2 (10:45→12:00)
[2019-02-23 11:20] VITALS: BP 130/73; PULSE 92; TEMP 98.2
--- NOTE | 2019-02-23 15:43 | DS ---
Documentation entered by Mary Pruett SCRIBE, acting as scribe for Bryanna Donnelly NP. Physical Exam: SUBJECTIVE: Patient seen and examined. in PT room. Complains of pain but it is getting better. Doing well with PT. OBJECTIVE: Vital Signs Period Temp Pulse Resp BP Sys/Harrison Pulse Ox Last 24 Hr 97.8 F-99.1 F 98-110 17-19 121-128/57-72 93-95 PHYSICAL EXAM GENERAL: Awake, alert, and fully oriented. LUNGS: CTA HEART: Regular rate and rhythm, S1 and S2 ABDOMEN: Soft, nontender, not distended UPPER EXTREMITIES: 2+ pulses, warm, well-perfused. No cyanosis. No clubbing. No peripheral edema. LLE: Dressing c/d/i NEUROLOGICAL: Cranial nerves II-XII intact. Normal speech. Gait not observed. Laboratory Results - last 24 hr 02/22/19 02/23/19 02/23/19 06:00 07:25 07:25 WBC 7.2 RBC 3.69 Hgb 11.0 Hct 33.0 MCV 89.4 MCH 29.7 MCHC 33.3 RDW 13.6 Plt Count 208 MPV 8.3 Absolute Neuts (auto) 4.0 Neutrophils % 55.9 Lymphocytes % 34.0 Monocytes % 8.9 Eosinophils % 0.4 Basophils % 0.8 Sodium 139 137 Potassium 3.5 3.1 L Chloride 101 99 Carbon Dioxide 30 27 Anion Gap 7 L 11 BUN 20.4 H 23.0 H Creatinine 0.8 0.9 Est GFR (CKD-EPI)AfAm 89.04 77.22 Est GFR (CKD-EPI)NonAf 76.83 66.63 Random Glucose 120 H 130 H Calcium 8.8 8.7 Magnesium 1.7 L 1.6 L Total Bilirubin 1.2 H AST 19 ALT 15 Alkaline Phosphatase 42 L Total Protein 6.3 L Albumin 3.3 L HOSPITAL COURSE: Date of Admission:02/18/19 Date of Discharge: 02/23/19 Pre-Hospital Course: 68 year-old female with a PMH significant for HTN, h/o DVT not on anticoagulation, endometrial cancer s/p CHILANGO-SBO 07/15/2018, last chemo treatment 12/04/2018, and thyroid nodules. On Saturday evening 02/15, patient was sitting watching television when she felt dizzy and SOB. The next thing she remembers is waking up on the floor with her son shaking her. She was immediately oriented although felt unsteady and spaced out. She did not bite her tongue, no bowel or urinary incontinence. She resisted her son's attempt to get her to go the hospital. On Saturday morning patient still felt lightheaded and she called Dr. Rubi to tell her what happened. Dr. Rubi directed her to go the ED. Patient was scheduled for a left total knee replacement on 02/17/[address] Hinkle, procedure has been postponed. ED Course: (1) Troponin neg x 1 (2) K 3.4 Subsequent Hospital Course: 68 year-old female with a PMH significant for HTN, h/o DVT not on anticoagulation, and endometrial cancer s/p CHILANGO-SBO 07/15/2018, last chemo treatment 12/04/2018. Placed on observation for syncopal episode on 02/15. Underwent elective left total knee replacement on 02/20. Syncope --troponin neg x 2 --CXR: unremarkable --ECG: no acute ischemic changess --US carotid: no significant stenosis --CT head negative for acute process; mild nonspecific bilateral frontal subcortical white matter low-attenuation, possibly chronic microvascular ischemic changes --telemetry monitoring --seen and evaluated by neurology: no further workup --seen and evaluated by cardiology: no cardiac contraindication to planned knee surgery Left total knee replacement on 02/20/19 --perioperative antibiotics complete --pain well-managed with PO meds --ASA 325mg daily x 6 weeks Diastolic heart failure --08/1018 Echo: mild LVH; LV systolic function normal EF 60-65%, Grade I diastolic dysfunction; RV normal; LAE; trace MR; possible , SEBASTIAN 1.0cm2; mild AI; small pericardial effusion <1cm --02/18 Echo: technically difficult study; LV normal, EF normal; RV not well- visualized; mild MR; mild --continued HCTZ Endometrial cancer s/p CHILANGO-BSO --last chemo 12/04/18 --followed by Dr. Rubi Thyroid nodules --01/23 US thyroid: 2 nodules moderately suspicious; 1 nodule highly suspicious recommendation FNA; needs followup; discussed with Elicia h/o DVT --not on anticoagulation Hypertension --BP stable --continued ToprolXL, amlodipine Minutes to complete discharge: 35 Discharge Summary Problems reviewed: Yes Reason For Visit: SYNCOPE Current Active Problems Syncope (Acute) Condition: Improved - Instructions Diet, Activity, Other Instructions: Post-op Instructions-Total Knee Replacement Call the office for a follow-up appointment in 1 week - [phone] Aspirin 325mg daily for 6 weeks. Pain medication was sent into your pharmacy. Apply Graduated Compression Stockings (TEDs) to both lower extremities- remove daily for hygiene ONLY Apply Sequential Compression Device (SCDs) to both Lower extremities remove for PT and hygiene ONLY Apply cold packs to affected area for 15 minutes every 2 hours. Physical Therapist will come to your home for the first 5 days. You will be set up with outpatient PT at your first post-operative visit. Patient may ambulate as tolerated-encourage self care (at least every 2-3 hours while awake) with walker or cane Maintain Aquacel (waterproof) dressing to operative wound (will be removed by surgeon at first office visit) Shower with Aquacel dressing in place-if Aquacel integrity compromised, remove and apply dry sterile dressing and notify Orthopedist. DO NOT SHOWER unless Orthopedists approves without Aquacel dressing CONTACT THE OFFICE FOR ANY CHANGE IN YOUR CONDITION (for example-fever greater than 102 degrees, excessive bleeding from operative site, purulent drainage, severe swelling or pain) GO TO THE EMERGENCY ROOM IF THERE IS A MEDICAL EMERGENCY Knee Precautions: * Keep a rolled towel under affected heel while in bed or chair (to keep knee in extension) * Keep affected leg elevated except during mealtimes * DO NOT PLACE PILLOW UNDER AFFECTED KNEE * If you have any questions, please do not hesitate to call the office - [phone]. Referrals: Elicia Redding MD [Primary Care Provider] - Disposition: HALFWAY FACILITY - Home Medications Comprehensive Discharge Medication List: Ambulatory Orders Amlodipine Besylate 10 mg PO DAILY #0 07/15/18 Gabapentin [Neurontin -] 300 mg PO Q8H PRN 07/15/18 Hydrochlorothiazide [Hctz -] 25 mg PO DAILY 07/15/18 Metoprolol Succinate 25 mg PO DAILY 07/15/18 Acetaminophen [Tylenol .Regular Strength -] 650 mg PO Q6H tablet 02/21/19 Aspirin [ASA -] 325 mg PO DAILY@0800 tablet 02/21/19 oxyCODONE HCL [Roxicodone -] 5 mg PO Q3H PRN tablet MDD 8 02/21/19 Sennosides/Docusate Sodium [Pericolace -] 2 tablet PO BID tablet 02/23/19 oxyCODONE HCL [Roxicodone -] 5 mg PO Q6H PRN #12 tablet MDD 4 02/23/19 This patient is new to me today: No Emergency Visit: Yes ED Registration Date: 02/18/19 Care time: The patient presented to the Emergency Department on the above date and was hospitalized for further evaluation of their emergent condition. Critical Care patient: No - Discharge Referral Referred to [facility] Med P.C.: Bryanna Padilla NP: This documentation has been prepared by the Flynn newman Maria, SCRIBE, under my direction and personally reviewed by me in its entirety. I confirm that the documentation accurately reflects all work, treatment, procedures, and medical decision making performed by me.
--- NOTE | 2019-02-26 14:55 | PATH ---
Surgical Pathology Report Patient Name: RAFFI SALINAS Med. Rec. #: [id number] /Age/Gender: 1950 (Age: 68) / F Account: [id number] Location: [facility] Taken: 02/20/2019 Received: 02/20/2019 Reported: 02/26/2019 Physicians: Berny Hinkle M.D. Specimen(s) Received LEFT KNEE BONES Clinical History Left knee osteoarthritis Final Diagnosis KNEE BONES, LEFT, TOTAL KNEE REPLACEMENT: DEGENERATIVE JOINT DISEASE. Electronically Signed Kati Regalado M.D. Gross Description Received in formalin labeled "left knee bones," is a 12.0 x 10.5 x 1.4 cm aggregate of multiple portions of bone and soft tissue. The tibial plateau measures 7.0 x 5.1 x 1.6 cm. There is a 2.4 cm greatest dimension area of eburnation present. The remaining articular surfaces are merida-yellow and diffusely granular. The underlying trabecular bone is yellow and hard. Dredge Pump Operator sections are submitted in one cassette, following decalcification. 02/23/2019 [facility]02/23/2019
== END 2019-02-23 13:33 | DRG 470 ==
LOC: FER 20:01 → UNDOADMOB 02-17 00:37 → FM/S 02-17 00:37 → INTOOBSV 02-17 14:37 → OBSVTOIN 02-17 14:37 → FM/S 02-18 14:37
PROVIDERS: ADMIT Internal Medicine; ATTEND Nurse Practitioner Acute Care
PROC: 8E0Y0CZ Robotic Assisted Procedure of Lower Extremity, Open Approach (ICD-10-PCS; 2019-02-20)
PROC: 0SRD0J9 Replacement of Left Knee Joint with Synthetic Substitute, Cemented, Open Approach (ICD-10-PCS; principal; 2019-02-20 08:00)
DX: M17.12 Unilateral primary osteoarthritis, left knee (principal); I50.32 Chronic diastolic (congestive) heart failure; I31.3 Pericardial effusion (noninflammatory); I11.0 Hypertensive heart disease with heart failure; F17.210 Nicotine dependence, cigarettes, uncomplicated; R55 Syncope and collapse; Z86.718 Personal history of other venous thrombosis and embolism; Z85.42 Personal history of malignant neoplasm of other parts of uterus; E04.1 Nontoxic single thyroid nodule; E87.6 Hypokalemia
CPT/HCPCS: 36415; 70450-TC; 71045-TC-FY; 72125-TC; 73560-TC-LT-FY; 80048; 80053; 82550; 82962; 83735; 84439; 84443; 84481; 84484; 85025; 85027; 85610; 93005; 93306-TC; 93880-TC; 94760; 97116-GP; 97162-GP; 99285-25; J1644; J7030

== ENCOUNTER 2019-08-27 06:05 | Day surgery (SDC) | payer OTHER ==
[2019-08-27] MEDS ORDERED: DEXAMETHASONE SODIUM PHOSPHATE 10 MG in SODIUM CHLORIDE 50 ML IVPB ONE (10:00)
[2019-08-27] MEDS ORDERED: PALONOSETRON HCL 0.25 MG/5 ML VIAL IVPUSH ONE (10:00)
[2019-08-27] MEDS ORDERED: SODIUM CHLORIDE IV ONE ×2 (10:30→12:30)
[2019-08-27] MEDS ORDERED: GEMCITABINE HCL IV ONE ×2 (10:30→12:30)
[2019-08-27 11:01] LABS: BASO % 0.7 % (0-2.0); EOS % 0.2 % (0-4.5); HEMATOCRIT 30.4 % (32.4-45.2); HEMOGLOBIN 9.9 GM/dL (10.7-15.3); MCH 31.7 pg (25.7-33.7); MCHC 32.6 g/dl (32.0-36.0); MEAN CELL VOLUME 97.4 fl (80-96); MEAN PLT VOLUME 8.3 fl (7.5-11.1); MONO % 12.9 % (3.8-10.2); NEUT % 68.2 % (42.8-82.8); PLATELET COUNT 308 K/MM3 (134-434); RBC 3.12 M/mm3 (3.60-5.2); RDW 25.6 % (11.6-15.6); WHITE BLOOD COUNT 7.3 K/mm3 (4.0-10.0)
[2019-08-27 11:17] LABS: ALBUMIN 3.1 g/dl (3.4-5.0); BILIRUBIN,TOTAL 1.8 mg/dL (0.2-1); CALCIUM 7.7 mg/dL (8.5-10.1); POTASSIUM 3.6 mmol/L (3.5-5.1); TOT PROT 6.4 g/dl (6.4-8.2)
[2019-08-27 11:19] LABS: CREATININE 0.9 mg/dL (0.55-1.3)
[2019-08-27 12:03] LABS: ANISOCYTOSIS 3+; MACROCYTOSIS 0; PLATELET ESTIMATE NORMAL
[2019-08-27 14:39] VITALS: TEMP 97.5
[2019-08-27 14:41] VITALS: BP 155/83; PULSE 111
== END 2019-08-27 13:30 | disposition home or self-care (01) ==
LOC: JONCCHEMO 06:05
PROVIDERS: ATTEND Internal Medicine Hematology & Oncology
DX: Z51.11 Encounter for antineoplastic chemotherapy (principal); C54.1 Malignant neoplasm of endometrium; D64.9 Anemia, unspecified; I10 Essential (primary) hypertension; M19.90 Unspecified osteoarthritis, unspecified site
CPT/HCPCS: 36415; 80053; 85025; 86304; 96367; 96375; 96413; J2469

== ENCOUNTER → 2019-09-02 | Day surgery (SDC) | payer OTHER ==
[~2019-09-02] MED LIST changes: +DEXAMETHASONE SODIUM PHOSPHATE 10 MG in SODIUM CHLORIDE 50 ML IVPB ONE; +GEMCITABINE HCL 1,672 MG in SODIUM CHLORIDE 250 ML IV ONE; +PALONOSETRON HCL 0.25 MG/5 ML VIAL IVPUSH ONE; -PEGFILGRASTIM 6 MG/0.6 ML DISP.SYRIN SQ ONE
[2019-09-02 10:24] LABS: BASO % 2.1 % (0-2.0); EOS % 0.1 % (0-4.5); HEMATOCRIT 28.7 % (32.4-45.2); HEMOGLOBIN 9.4 GM/dL (10.7-15.3); LYMPH % 32.1 % (8-40); MCH 31.4 pg (25.7-33.7); MCHC 32.8 g/dl (32.0-36.0); MEAN CELL VOLUME 95.7 fl (80-96); MEAN PLT VOLUME 7.4 fl (7.5-11.1); MONO % 10.9 % (3.8-10.2); NEUT % 54.8 % (42.8-82.8); PLATELET COUNT 251 K/MM3 (134-434); RDW 23.7 % (11.6-15.6); WHITE BLOOD COUNT 3.6 K/mm3 (4.0-10.0)
[2019-09-02 11:13] LABS: ALBUMIN 3.1 g/dl (3.4-5.0); BILIRUBIN,DIRECT 0.4 mg/dL (0.0-0.2); BILIRUBIN,TOTAL 1.2 mg/dL (0.2-1); BLOOD UREA NITROGEN 10.2 mg/dL (7-18); CALCIUM 8.1 mg/dL (8.5-10.1); CREATININE 0.9 mg/dL (0.55-1.3); MAGNESIUM 2.1 mg/dL (1.8-2.4); POTASSIUM 4.1 mmol/L (3.5-5.1); TOT PROT 6.5 g/dl (6.4-8.2)
[2019-09-02 12:15] LABS: ANISOCYTOSIS 1+; MACROCYTOSIS 1+; PLATELET ESTIMATE NORMAL
== END | disposition home or self-care (01) ==
LOC: JONCCHEMO 05:28
PROVIDERS: ATTEND Internal Medicine Hematology & Oncology
DX: Z53.8 Procedure and treatment not carried out for other reasons (principal)
CPT/HCPCS: 36415; 80048; 80076; 83735; 85025; 96365

== ENCOUNTER 2019-10-21 07:06 | Day surgery (SDC) | payer OTHER ==
--- NOTE | 2019-10-21 11:30 | ECHO ---
Name: RAFFI SALINAS MARIA Exam:Adult Echocardiogram Study Date: 10/21/2019 10:13 AM Age: 69 yrs Reason For Study: Abnormal ECG Height: 62 in Weight: 242 lb BSA: 2.1 m2 MMode/2D Measurements & Calculations RVDd: 3.4 cm Ao root diam: 3.0 cm IVSd: 1.2 cm LA dimension: 3.7 cm LVIDd: 4.7 cm ACS: 1.2 cm LVIDs: 3.3 cm LVPWd: 1.2 cm EDV(Teich): 101.5 ml LVOT diam: 2.0 cm ESV(Teich): 43.2 ml LAV (MOD-bp): 79.0 ml TAPSE: 2.4 cm RV S Jarrett: 16.6 cm/sec Doppler Measurements & Calculations MV E max jarrett: 117.8 cm/sec Ao V2 max: 247.0 cm/sec MV A max jarrett: 159.2 cm/sec Ao max P.4 mmHg MV E/A: 0.74 Ao V2 mean: 172.8 cm/sec MV dec time: 0.15 sec Ao mean P.3 mmHg Ao V2 VTI: 49.7 cm SEBASTIAN(I,D): 1.2 cm2 SEBASTIAN(V,D): 1.0 cm2 LV V1 max P.8 mmHg SV(LVOT): 59.8 ml LV V1 mean P.7 mmHg LV V1 max: 83.9 cm/sec LV V1 mean: 62.8 cm/sec LV V1 VTI: 19.9 cm TR max jarrett: 158.8 cm/sec PA V2 max: 104.5 cm/sec TR max P.1 mmHg PA max P.4 mmHg PA acc slope: 986.5 cm/sec2 PA acc time: 0.10 sec Med Peak E' Jarrett: 5.0 cm/sec PA pr(Accel): 36.2 mmHg Med E/e': 23.5 Lat Peak E' Jarrett: 8.1 cm/sec Lat E/e': 14.6 Tech Comments TDS due to body habitus. Procedure A complete two-dimensional transthoracic echocardiogram was performed (2D, M-mode, Doppler and color flow Doppler). Left Ventricle There is borderline concentric left ventricular hypertrophy. The left ventricle is normal in size. Le ft ventricular systolic function is normal. Ejection Fraction = 65%. E/A reversal consistent with but no t diagnostic of poor LV compliance. The left ventricular wall motion is normal. Right Ventricle The right ventricle is normal in size and function. Atria Normal left and right atrial size and function. Mitral Valve The mitral valve is normal in structure and function. There is trace to mild mitral regurgitation. Tricuspid Valve The tricuspid valve is normal in structure and function. There is trace tricuspid regurgitation. Ther e was insufficient TR detected to calculate RV systolic pressure. Aortic Valve There is moderate aortic valve thickening. Mild valvular aortic stenosis. Aortic max pressure gradien t= 24.4. Aortic mean pressure gradient= 13.3. The calculated aortic valve area using the continuity equation i s 1.3 cm2. Pulmonic Valve The pulmonic valve is not well visualized. Great Vessels The aortic root is normal size. Pericardium/Pleura There is no pericardial effusion. There is no pleural effusion. Interpretation Summary Compared to prior echo report on 02/18/19, changes are noted. There is borderline concentric left herminia tricular hypertrophy. Left ventricular systolic function is normal. Ejection Fraction = 65%. There is trace to mild mitral regurgitation. There is trace tricuspid regurgitation. Mild valvular aortic stenosis. The calculated aortic valve area using the continuity equation is 1.3 cm2. MD Raul Glez 10/21/2019 11:30 AM
[2019-10-21 11:56] LABS: BASO % 0.8 % (0-2.0); EOS % 0.3 % (0-4.5); HEMATOCRIT 38.8 % (32.4-45.2); HEMOGLOBIN 12.5 GM/dL (10.7-15.3); LYMPH % 38.8 % (8-40); MCH 27.7 pg (25.7-33.7); MCHC 32.3 g/dl (32.0-36.0); MEAN PLT VOLUME 8.1 fl (7.5-11.1); MONO % 7.5 % (3.8-10.2); NEUT % 52.6 % (42.8-82.8); PLATELET COUNT 213 K/MM3 (134-434); RBC 4.52 M/mm3 (3.60-5.2); RDW 17.4 % (11.6-15.6); WHITE BLOOD COUNT 7.4 K/mm3 (4.0-10.0)
[2019-10-21 12:38] LABS: ALBUMIN 3.4 g/dl (3.4-5.0); BILIRUBIN,TOTAL 1.3 mg/dL (0.2-1); BLOOD UREA NITROGEN 14.6 mg/dL (7-18); CALCIUM 8.7 mg/dL (8.5-10.1); CREATININE 0.9 mg/dL (0.55-1.3); TOT PROT 7.2 g/dl (6.4-8.2)
[2019-10-21] MEDS ORDERED: DEXAMETHASONE SODIUM PHOSPHATE IVPB ONE (14:00)
[2019-10-21] MEDS ORDERED: FAMOTIDINE 20 MG/50 ML IVPB 20 MG/50 ML MG IVPB ONE (14:00)
[2019-10-21] MEDS ORDERED: [UNRECOGNIZED DRUG - OTHER] IVPB ONE (14:00)
[2019-10-21] MEDS ORDERED: ONDANSETRON IVPB ONE (14:00)
[2019-10-21] MEDS ORDERED: DOXORUBICIN HCL LIPOSOMAL IV ONE (14:30)
[2019-10-21] MEDS ORDERED: WATER IV ONE (14:30)
[2019-10-21] MEDS ORDERED: DEXTROSE 5% IV ONE (14:30)
[2019-10-21 17:32] VITALS: TEMP 97.7
[2019-10-21 17:53] VITALS: BP 170/93; PULSE 93
== END 2019-10-21 15:30 | disposition home or self-care (01) ==
LOC: JONCCHEMO 07:06
PROVIDERS: ATTEND Internal Medicine Hematology & Oncology
DX: Z51.11 Encounter for antineoplastic chemotherapy (principal); C55 Malignant neoplasm of uterus, part unspecified
CPT/HCPCS: 36415; 80053; 85025; 86304; 93306-TC; 96367; 96413; Q2049

== ENCOUNTER 2019-11-18 07:11 | Day surgery (SDC) | payer OTHER ==
--- OUTSIDE RECORDS SUMMARY | 2019-11-18 07:17 | XMS ---
:1950 Author Organization [facility] Care Team Providers Name Role Phone Ishamericon, Jhonny Unavailable Unavailable Ishkanian, Jhonny Unavailable Unavailable Ishkanian, Jhonny Unavailable Unavailable Ishkanian, Jhonny Unavailable Unavailable Ishkanian, Jhonny Unavailable Unavailable Re-disclosure Warning The records that you are about to access may contain information from federally- assisted alcohol or drug abuse programs. If such information is present, then the following federally mandated warning applies: This information has been disclosed to you from records protected by federal confidentiality rules (42 CFR part 2). The federal rules prohibit you from making any further disclosure of this information unless further disclosure is expressly permitted by the written consent of the person to whom it pertains or as otherwise permitted by 42 CFR part 2. A general authorization for the release of medical or other information is NOT sufficient for this purpose. The Federal rules restrict any use of the information to criminally investigate or prosecute any alcohol or drug abuse patient.The records that you are about to access may contain highly sensitive health information, the redisclosure of which is protected by Article 27-F of the [facility] Public Health law. If you continue you may haveaccess to information: Regarding HIV / AIDS; Provided by facilities licensed or operated by the [facility] Office of Mental Health; or Provided by the [facility] Office for People With Developmental Disabilities. If such information is present, then the following [facility] mandated warning applies: This information has been disclosed to you from confidential records which are protected by state law. State law prohibits you from making any further disclosure of this information without the specific written consent of the person to whom it pertains, or as otherwise permitted by law. Any unauthorized further disclosure in violation of state law may result in a fine or detention sentence or both. A general authorization for the release of medical or other information is NOT sufficient authorization for further disclosure. Advance Directives Directive Description Marketing Support Specialist Tomographic Tech Status Observation Data S ource(s) Description Resuscitation [place] Resuscitation [facility] (The Skilled [place] [facility] of the Facility [facility]) Intubation [place] Intubation [facility] E (The Skilled [place] [facility] the [facility]) Allergies and Adverse Reactions Type Description Substance Reaction Status Data Source(s ) 9 N/A N/A [facility] (The [place] [facility] of the [facility]) Drug allergy No Known Allergies No Known Allergies NONE [facility] Encounters Encounter Providers Location Date Indications Data Source(s ) Outpatient 07/30/2019 ENDOMETRIAL CA [facility] 09:35:00 AM EDT ENDOMETRIAL CA Outpatient 04/13/2019 12:20:00 PM UTERINE CA NO T DIABETIC [facility] EST UTERINE CA NOT DIABETIC Inpatient Attender: Jhonny Kang [address] 02/23/2019 02:11:00 [facility] (The [facility] EST - 03/10/2019 [place] [facility] of the 11:00:00 AM EST [facility]) Patient discharged. Outpatient 01/26/2019 11:29:00 AM ENDOMETRIAL C A NOT DIAB [facility] EST 242LBS ENDOMETRIAL CA NOT DIAB 242LBS Medications Medication Brand Start Product Dose Route Administrative Pharmacy [facility] Indications Reaction Description Data Name Date Form Instructions Instructions Source(s) oxycodone 5 Oxycod 02/27/ complet oxycod one 5 [facility] mg tablet one 2018 ed mg tablet (The Hydroc 01:53: [place] hlorid 14 AM Home of e 5 MG EST the Oral [facility] Tablet [facility]) acetaminoph 304476 02/24/ complet acetam inophe [facility] en 500 mg 48456 2018 ed n 500 mg (The tablet 04:05: tablet [place] 15 AM Home of EST the [facility]) aspirin 325 253373 complet aspiri n 325 [facility] mg tablet 12526 2019 ed mg tablet (The 06:05: [place] 56 AM Home of [facility] the [facility]) senna 8.6 066654 complet senna 8. 6 mg [facility] mg tablet 52412 2018 ed tablet (The 06:05: [place] 56 AM Home of EST the [facility]) gabapentin 244147 complet gabapen tin [facility] 300 mg 03700 2018 ed 300 mg (The capsule 06:05: capsule [place] 55 AM Home of [facility]) metoprolol 025454 complet metopro lol [facility] succinate 19341 2018 ed succinate ER ( The ER 25 mg 06:05: 25 mg [place] tablet,exte 55 AM tablet,exten Home of nded EST ded release the release 24 24 hr [facility]) hydrochloro Hydroc complet hydroc hlorot [facility] thiazide 25 hlorot 2019 ed hiazide 25 (The mg tablet hiazid 06:05: mg tablet [place] 25 55 AM Home of MG EST the Oral [facility]) amlodipine 136142 complet amlodip ine [facility] 10 mg 00872 2018 ed 10 mg tablet (The tablet 06:05: [place] 55 AM Home of [facility] the [facility]) docusate 164053 complet docusate [facility] sodium 100 98971 2018 ed sodium 100 (T he mg tablet 06:05: mg tablet [place] 51 AM Home of EST the [facility]) Insurance Providers Payer name Policy type Policy ID Covered Covered republican's Policy P vonnie / Coverage republican ID relationship to [facility] ormation type jones MEDICAID [id number] SP [id number] MEDICARE [id number] SP [id number] 11 1 MEDICAID [id number] PT [id number] MEDICARE [id number] PT [id number] 11 1 Medicaid - [place] Medicaid [id number] Self [id number] Medicare Part Medicare [id number] Self [id number] Part B 1 Medicare Part Medicare [id number] Self [id number] Part A 1 Medicaid - [place] 3 [id number] Self [id number] Medicare Part 2 [id number] Self [id number] B 1 Medicare Part 18 [id number] Self [id number] A 1 MEDICAID [id number] SP [id number] MEDICARE [id number] SP [id number] 11 1 MEDICAID [id number] SP [id number] MEDICARE [id number] SP [id number] 11 1 SELF PAY SP INSURANCE Problems, Conditions, and Diagnoses Code Display Name Description Problem Type Effective Data Sour ce(s) Dates F17.210 Nicotine F17.210 Diagnosis 07/30/2019 [place] dependence, 09:35:00 AM Hospital cigarettes, EDT uncomplicated 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/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, 09:35:00 AM Hospital unspecified EDT 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 07/30/2019 [place] thyroid nodule 09:35:00 AM Hospital EDT 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 09:35:00 AM Hospi alycia of bone EDT 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 09:35:00 AM Hospital EDT 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[facility] (The polyneuropathy polyneuropathy 12:00:00 AM [place] EST of the [facility]) Z11.1 Encounter for Encounter for Diagnosis 02/23/2019 [facility] E (The screening for screening for 12:00:00 AM [place] respiratory respiratory EST of the tuberculosis tuberculosis [facility]) Z87.891 Personal history Personal history Diagnosis 02/23/2019 SI [facility] (The of nicotine of nicotine 12:00:00 AM [place] Ho me dependence dependence EST of the [facility]) Z85.41 Personal history Personal history Diagnosis 02/23/2019 SI [facility] (The of malignant of malignant 12:00:00 AM [place] Home 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 [facility]) Z66 Do not resuscitate Do not resuscitate Diagnosis 9 [facility] (The 12:00:00 AM [place] Home EST of the [facility]) K59.00 Constipation, Constipation, Diagnosis 02/23/2019 [facility] E (The unspecified unspecified 12:00:00 AM [place] Ho me EST of the [facility]) H53.9 Unspecified visual Unspecified visual Diagnosis 9 [facility] (The disturbance disturbance 12:00:00 AM [place] [facility] EST of [facility]) I10 Essential Essential Diagnosis 02/23/2019 [facility] (The (primary) (primary) 12:00:00 AM [place] Home hypertension hypertension EST of the [facility]) M17.12 Unilateral primary Unilateral primary Diagnosis 9 [facility] (The osteoarthritis, osteoarthritis, 12:00:00 AM [place] Home left knee left knee EST of the [facility]) Z96.652 Presence of left Presence of left Diagnosis 02/23/2019 [facility] (The artificial knee artificial knee 12:00:00 AM [place] joint joint EST of the [facility]) Z47.1 Aftercare Aftercare Diagnosis 02/23/2019 [facility] (The following joint following joint 12:00:00 AM [place] replacement replacement EST of the surgery surgery [facility]) J98.11 Atelectasis J98.11 Diagnosis 01/26/2019 [place] 11:29:00 AM Hospital EST C77.2 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 ID Date Data Source [id number] 09/03/2019 08:35:00 AM EDT [facility] Name Value Range Interpretation Description Data Sup porting Code Source(s) Document(s ) SARS [facility] CORONAVIRUS 2 RNA This lab was ordered by [facility] and reported by [facility]. ID Date Data Source [id number] 02/24/2019 02:21:32 AM EST [facility] (Th e [place] [facility] of the [facility]) Name Value Range Interpretation Description Data Sup porting Code Source(s) Document(s ) Sodium Serum 141mmo 135-14 <td [facility] ([id number]) l/L 5 ID="Observation-T (The sjq-3r700598-86u4 [place] -0vf3-j885-c4kew7 Home of the 9b5b3a">([id number]) Scientology Sodium Serum Quaker ([id number])</td><td Mormon) ID="Observation-V dlug-0g887255-16m 7-9kn9-q9871zm1-s974-u5vcn 06p1q3p">141</td> <td ID="Observation-U dwr-9e824318-37k8 -0dp9-i069-e3zul3 9b5b3a">mmol/L</t d><td ID="Observation-R efRange-1v170745- 03k5-9lg7-h732-c5 nxv31b2b3l">135-1 45</td><td ID="Observation-A bnormal-5j599101- 87u5-8wi3-c104-b3 rik61x3s4t"></td> <td ID="Observation-S yfjje-5f224987-02 y6-5fa0-w4617sq6-s557-r4tl o92d5o6e">Final</ td> Potassium Serum 3.3mmo 3.5-5. Below low <td [facility] ([id number]) l/L 3 normal ID="Observation-T (The qin-4416e452-sfh4 [place] -40y7-5r56-z77d03 Home of the b304cd">(3804410) Scientology Potassium Serum Quaker ([id number])</td><td Mormon) ID="Observation-V ddef-7108i549-zbp 3-34c3-3s0034r1-8p62-o66q6 9r497ax">3.3</td> <td ID="Observation-U zhk-4800w597-hdk3 -92f3-4l33-r51a56 b304cd">mmol/L</t d><td ID="Observation-R efRange-8199t140- pir7-09c7-8o20-d8 3g29d146vr">3.5-5 .3</td><td ID="Observation-A bnormal-2573l537- szd0-11i7-5u25-d8 5r82s514ls">L</td ><td ID="Observation-S tqykb-0033s261-ye l2-57u3-3j6855p1-6h75-s17f 81v090zi">Final</ td> Chloride Serum 97mmol 96-108 <td [facility] ([id number]) /L ID="Observation-T (The mmf-jm5n6784-p28a [place] -8881-wvsy-p099d6 Home of the 8e29d5">([id number]) Scientology Chloride Serum Quaker ([id number])</td><td Mormon) ID="Observation-V vuyn-wc8n9552-q91 p-7770-cagv-c891b 23h44n1">97</td>< td ID="Observation-U ywd-qv7o5910-k56x -3400-drui-x883h8 8e29d5">mmol/L</t d><td ID="Observation-R efRange-ih7s3103- u99c-9269-xfnd-y3 61c36p64q6">96-10 8</td><td ID="Observation-A bnormal-cn2h5860- o87g-5318-ensx-d5 75e64d88r7"></td> <td ID="Observation-S zphwd-zy7p3004-n5 0q-9633-wkar-c891 t22s24o0">Final</ td> CO2- Serum 28mmol 22-31 <td [facility] ([id number]) /L ID="Observation-T (The krg-479vn067-221f [place] -19or-dk4u-3x7t36 Home of the 3dad7f">([id number]) Scientology CO2- Serum Quaker ([id number])</td><td Mormon) ID="Observation-V kirv-088ex643-074 z-81nr-ao5q-0d8a3 45ult5v">28</td>< td ID="Observation-U hng-822zw538-233i -59mk-eo5b-9v5y40 3dad7f">mmol/L</t d><td ID="Observation-R efRange-644gi890- 003y-92mn-my1j-0d 9w938pft2h">22-31 </td><td ID="Observation-A bnormal-581dx016- 698v-26xm-fg8u-0d 7s268wdf1s"></td> <td ID="Observation-S dhjid-604zd840-67 1r-16yd-zn3l-0d8a 892vnm4n">Final</ td> Anion Gap 16mmol 5-17 <td [facility] /L ID="Observation-T (The isv-4s9drn81-3i93 [place] -264w-5b27-r563se Home of the d17d4d">([id number]) Scientology Anion Gap</td><td Quaker ID="Observation-V [place]) mucf-0u1fct87-7h8 4-008b-7e02-d970f ak90z0c">16</td>< td ID="Observation-U uig-9n3tng62-4f77 -408g-1l17-p553kc d17d4d">mmol/L</t d><td ID="Observation-R efRange-0o8grp32- 8x31-457a-1z01-d1 95ned98y6q">5-17< /td><td ID="Observation-A bnormal-1q6vqc78- 3y92-090v-4k64-l8 47xuf80c0o"></td> <td ID="Observation-S rwtsc-4h9rba82-0v 86-782x-8x50-d970 inu69e4w">Final</ td> Glucose ([id number]) 123mg/ 70-99 Above high <td [facility] dL normal ID="Observation-T (The awv-he644yz8-1p69 [place] -8sb8-4cad-406894 Home of the v04249">(9195579) Scientology Glucose Quaker (3134763)</td><td Mormon) ID="Observation-V lglg-tw742qq8-9f8 0-1yf0-7awz9ly5-3hvj-90784 8w86630">123</td> <td ID="Observation-U kay-kx112jo4-2n03 -1ak8-3mty-774938 k30817">mg/dL</td ><td ID="Observation-R efRange-of854ty7- 6t00-4dy3-0hxd-95 1595h30133">70-99 </td><td ID="Observation-A bnormal-vx462cz3- 6j02-8ed7-5qrt-06 9528q34026">H</td ><td ID="Observation-S mcnnr-zw133kf0-7f 49-5ds7-0ays7ii9-6bal-0003 93w28484">Final</ td> Blood Urea 29mg/d 7-23 Above high <td [facility] Nitrogen L normal ID="Observation-T (The ([id number]) iyh-7677zh8a-8r24 [place] -939y-s1y3-07d497 Home of the 4baae9">(5357657) Scientology Blood Urea Quaker Nitrogen Mormon) ([id number])</td><td ID="Observation-V gssb-4383ax9v-8f8 2-282p-u1p2-66b92 10pbab6">29</td>< td ID="Observation-U keg-0442oa2m-6m62 -714n-l7p7-67b361 4baae9">mg/dL</td ><td ID="Observation-R efRange-2785oq0w- 4j04-412f-r5x3-65 d5921wtuu3">7-23< /td><td ID="Observation-A bnormal-2140ta4n- 4j03-082w-d8h5-76 z2470xiul4">H</td ><td ID="Observation-S ueyhb-7740rd9j-0b 39-863o-v2f6-66b9 273bovz2">Final</ td> Creatinine- Serum 0.92mg 0.50-1 <td [facility] ([id number]) /dL .30 ID="Observation-T (The ajz-kh0027ee-w3j4 [place] -252t-o204-044626 Home of the 18916k">(7034051) Scient[facility] Creatinine- Serum [place] (6424932)</td><td Mormon) ID="Observation-V hods-mo5119jy-d1g 6-079o-y930-08848 481183g">0.92</td ><td ID="Observation-U qez-ax1870dg-x0m3 -149x-c297-161982 79358t">mg/dL</td ><td ID="Observation-R efRange-fp0778mm- e2h3-640p-v225-30 785812860t">0.50- 1.30</td><td ID="Observation-A bnormal-hw3111zx- i8l0-767u-h472-89 971689318d"></td> <td ID="Observation-S natui-fb6135eu-h4 t3-785a-s659-0884 0696143g">Final</ td> Calcium- Serum 9.2mg/ 8.4-10 <td [facility] (3740034) dL .5 ID="Observation-T (The cgq-m20c8c2m-p547 [place] -75hh-4i28-47oi97 Home of the e45b66">(2147979) Scient[facility] Calcium- Serum [place] (0063081)</td><td [facility] ID="Observation-V ocir-v80j1v1l-e14 7-03vn-5w22-59be6 7l21v38">9.2</td> <td ID="Observation-U lby-d25k2c6g-c165 -16jc-0a14-60zt77 e45b66">mg/dL</td ><td ID="Observation-R efRange-v35q5h0f- j991-09br-7z73-46 nh20m16k99">8.4-1 0.5</td><td ID="Observation-A bnormal-a88v9l0w- z570-19gw-4c10-53 hc14y62y95"></td> <td ID="Observation-S cfjpy-s84x5l6a-v4 26-14kg-7x49-59be 52t70l83">Final</ td> Protein Total 6.5g/d 6.0-8. <td [facility] Serum (1719615) L 3 ID="Observation-T (The tkz-58615u81-6h1l [place] -786h-po0z-763857 Home of the 3b1af2">(1706593) Scient[facility] Protein Total [place]aker Serum Mormon) (3588234)</td><td ID="Observation-V vzxx-47617r57-7s2 y-135d-wc3b-09891 52j4pk0">6.5</td> <td ID="Observation-U ues-63632v81-5v4n -719b-tv5t-808835 3b1af2">g/dL</td> <td ID="Observation-R efRange-49145s45- 8z7t-321j-ag4e-26 63405g1ca8">6.0-8 .3</td><td ID="Observation-A bnormal-93850o81- 6i2g-990c-bw4c-12 76157u6xt2"></td> <td ID="Observation-S bqhvx-72035e50-5o 6a-970i-sm3m-0989 017q1wh8">Final</ td> Albumin- Serum 3.8g/d 3.3-5. <td [facility] (5448619) L 0 ID="Observation-T (The kdj-6ckr59ec-gpi4 [place] -6v5f-fe09-xtp152 Home of the ad7be7">(5988229) [facility] Albumin- Serum [place] (4625613)</td><td Mormon) ID="Observation-V xqcx-0jdh01vr-qcs 0-3o5r-il880j2t-sv15-bmn66 2vv8vd4">3.8</td> <td ID="Observation-U wpo-0jkw05zv-ujt6 -9w7g-rs74-yqo440 ad7be7">g/dL</td> <td ID="Observation-R efRange-8jej60br- fgk9-3t0b-mg31-cb i839ff4by7">3.3-5 .0</td><td ID="Observation-A bnormal-5chy66ch- ire5-3t7h-wx88-cb g358ua0ta5"></td> <td ID="Observation-S jycic-8msy29fb-sm l7-9t5c-ez818b2a-la55-zip8 63mu7ab7">Final</ td> Bilirubin Total 0.8mg/ 0.2-1. <td [facility] (9373324) dL 2 ID="Observation-T (The frz-x5710315-8676 [place] -5759-qdw0-mowt28 Home of the 9m8969">(6316298) [facility] Bilirubin Total [place] (0928133)</td><td Mormon) ID="Observation-V stcl-x7389013-520 7-5888-exv1-dffe4 61y6303">0.8</td> <td ID="Observation-U mfp-z5427922-7028 -7457-nub3-mljw32 9l5783">mg/dL</td ><td ID="Observation-R efRange-g1365270- 1267-2838-qsc3-df nw035e3798">0.2-1 .2</td><td ID="Observation-A bnormal-y6991942- 6800-0861-mbg5-df dh758z9180"></td> <td ID="Observation-S jewxf-l3844030-81 77-8261-gcx2-dffe 007l3503">Final</ td> Aspartate 17U/L 10-40 <td [facility] Aminotransferase ID="Observation-T (The (8741952) bnw-44qa1a1f-390i [place] -15rr-f5o0-6k47v4 Home of the 63937d">(5348066) [facility] Aspartate [place] Aminotransferase Mormon) (2595924)</td><td ID="Observation-V kajj-20bn0l0s-314 f-74bh-b6j5-4a01e 552604k">17</td>< td ID="Observation-U uqf-80bp8e4a-700y -07sy-z3z6-6y22y9 71438l">U/L</td>< td ID="Observation-R efRange-12wf3s8f- 318l-72mt-b5s4-4a 63q151106r">10-40 </td><td ID="Observation-A bnormal-25ka5e1q- 250p-13lk-i9w4-4a 51v394681i"></td> <td ID="Observation-S zbiau-15my6v6j-71 8w-70ct-x4u2-4a01 g744299a">Final</ td> Alanine 11U/L 10-45 <td [facility] Aminotransferase ID="Observation-T (The 2822218) hdv-236y9k41-391w [place] -599i-52i5-uzps34 Home of the 2i5316">(3897398) Scientology Alanine Quaker Aminotransferase Mormon) (8608848)</td><td ID="Observation-V uqxd-531l2e64-589 o-890r-80j4-dddc2 41t8625">11</td>< td ID="Observation-U frm-190o7w04-450y -284n-05a7-lgvi50 7i3391">U/L</td>< td ID="Observation-R efRange-721g1f05- 807h-289n-68x5-dd nw822g1679">10-45 </td><td ID="Observation-A bnormal-079u6q93- 126s-297j-63r4-dd vh523l7124"></td> <td ID="Observation-S vcfla-953f3b53-39 3k-043w-29r5-dddc 114y8507">Final</ td> Alkaline 51U/L 40-120 <td [facility] Phosphatase- ID="Observation-T (The Serum (3789721) pbu-58r74j22-2k14 [place] -766f-7952-z83e82 Home of the dbbd0d">(8772705) Scientology Alkaline Quaker Phosphatase- Mormon) Serum (6162005)</td><td ID="Observation-V vdxy-82k93g60-9n7 3-115p-6967-a79c2 9smfu5p">51</td>< td ID="Observation-U ipx-53q93z09-0e50 -093s-5746-t18o79 dbbd0d">U/L</td>< td ID="Observation-R efRange-41n13z26- 3z82-491o-6300-u7 3l20hrfx8i">40-12 0</td><td ID="Observation-A bnormal-03s69m09- 8q70-298l-3560-f1 1u83fmrk0s"></td> <td ID="Observation-S exqzy-86e37s74-3f 55-172m-5503-a79c 91xbop4r">Final</ td> eGFR, 75mL/m >=60 <td [facility] -Solomon Islander in ID="Observation-T (The 3M2 xnu-6ay346e1-8z91 [place] -40c6-o5gi-a94420 Home of the tp442w">(1186861) Scientology eGFR, Quaker -Sol[place] Islander< Mormon) /td><td ID="Observation-V cjnr-2mf754i7-5q6 8-67i4-w3es85k8-x2uz-b5668 1kz369t">75</td>< td ID="Observation-U kpa-1lg759j2-9a72 -72z7-j7oy-a35908 kn269y">mL/min/1. 73M2</td><td ID="Observation-R efRange-4sg897f6- 6y04-22a0-f7yi-j7 3287eu681r">>=60< /td><td ID="Observation-A bnormal-0ep421g5- 7h11-86j4-c2fj-s6 0750ov552k"></td> <td ID="Observation-S pwgat-8wx447t3-8r 55-56m4-o9iu48u8-o8nu-e998 50md215f">Final</ td> eGFR, Non 65mL/m >=60 <td [facility] -[place] Islander in ID="Observation-T (The 3M2 gxq-r199o6v7-866c [place] -033w-a4k7-b2z546 Home of the 788580">([id number]) Scientology eGFR, Non Quaker -[place] Islander< Mormon) /td><td ID="Observation-V vjwd-z258d2u5-589 f-243y-h7h1-c6e36 6628130">65</td>< td ID="Observation-U rsx-a703j0h0-864w -378f-l0m9-a5w429 311552">mL/min/1. 73M2</td><td ID="Observation-R efRange-c162n8m1- 452i-064c-b2m5-c6 v670599001">>=60< /td><td ID="Observation-A bnormal-w204g3y8- 522z-499b-h4m2-c6 g965785348"></td> <td ID="Observation-S jaesy-r548r7f8-47 7r-033r-a2e4-c6e3 63585271">Final</ td> <td colspan="6"><list><item>Type: Lab, Date: 02/24/2019 01:25 PM, User: N/A</item><item>Interpretative commentTh e units for eGFR are mL/min/1.73M2 (normalized body surface area). The eGFR is calculated from a serum creatinine using the CKD-EPI equation. Other variables re quired for calculation are race, age and sex. Among patients with chronic kidney disea se (CKD), the eGFR is useful in determining the stage of disease according to KDOQI CKD classification. All eGFR results are reported numerically with the following interpretation. GFR With Without (m l/min/1.73 m2) Kidney Damage Kidney Damage >= 90 Sta ge 1 Normal 60-89 Stage 2 Decreased GFR 30-59 Stage 3 Stage 3 15-29 Stage 4 Stage 4 < 15 Stage 5 Stage 5Each stage of CKD assumes that the asso ciated GFR level has been in effect for at least 3 months. Determination of stages one and two (with eGFR > 59 ml/min/m2) requires estimation of kidney damage for at least 3 months as defined by structural or functional abnormalities.Limitations: All estimates of GFR will be less accurate for patients at extremes of muscle mass (including but not limited to frail elderly, critically ill, or cancer patients), tho se with unusual diets, and those with conditions associated with reduced secre tion or extrarenal elimination of creatinine. The eGFR equation is not recommended for use in patients with unstable creatinine levels.Lab formed at: [facility], [address], [place], [address], D tia Birch MD</item></list></td> ID Date Data Source [id number] 02/24/2019 02:11:58 AM EST [facility] ([facility]) Name Value Range Interpretation Description Data Sup porting Code Source(s) Document(s ) WBC ([id number]) 7.94K/uL 3.80-10. <td [facility] 50 ID="Observati ([facility] [place] wh-Cvmx-2m730 [facility] [id number] [facility] -[id number]-2pcq676 [facility] 54ae1">([address] [place] [address]) 15) WBC ([id number])</td ><td ID="Observati fk-Mfnwu-9v63 5x4q-52h7-8z9 x-z9vu-6kar62 254ae1">7.94< /td><td ID="Observati jd-Kuxy-6k913 q6j-99d4-1c4d -y3bl-5hyc528 54ae1">K/uL</ td><td ID="Observati xq-YzdPxgte-4 w421p3r-87a3- 5i6a-n8xc-7iu i47278as3">3. 80-10.50</td> <td ID="Observati jn-Vcfyzhml-0 n436e3g-55v1- 1j4q-k3kf-8dn s73014mh0"></ td><td ID="Observati qb-Fakfoh-5r1 95y6n-99c9-0l 5d-y5kv-2ewl1 7241ea8">Brandie l</td> RBC 3.76M/uL 3.80-5.2 Below low normal <td [facility] 0 ID="Observati ([facility] [place] df-Saxf-30b9e [facility] [id number] [facility] -[id number] [facility] 266fa">([address] [place] [address]) 20) RBC</td><td ID="Observati rf-Kticj-37i5 d699-9wt6-089 1-68su-097411 1266fa">3.76< /td><td ID="Observati lw-Ldlq-45i5s 740-7qb6-6449 -90fe-0180803 266fa">M/uL</ td><td ID="Observati qi-JhxXyvnp-6 3i3j808-8vm4- 7530-55sf-493 2528156zw">3. 80-5.20</td>< td ID="Observati xg-Hcrdqdug-5 3r1b849-5fr9- 9694-91gx-564 8545368nv">L< /td><td ID="Observati rs-Cmbuol-31s 6a535-4mm0-98 53-57cc-38931 22137qs">Brandie l</td> Hemoglobin 10.9g/dL 11.5-15. Below low normal <td [facility] ([id number]) 5 ID="Observati ([facility] [place] qf-Jgje-q82q3 [facility] [id number] [facility] -[id number] [place] b4a75">([address] [place]) 25) Hemoglobin ([id number])</td ><td ID="Observati eq-Fwrsy-f62c 8i56-78y4-365 8-5gx3-96o88v 2b4a75">10.9< /td><td ID="Observati rb-Gzey-f10t1 h19-74k6-5646 -8of6-66h06u9 b4a75">g/dL</ td><td ID="Observati pr-GdiLejuf-v 65r1b76-51b4- 8282-6ta2-52x 79a0o1j07">11 .5-15.5</td>< td ID="Observati hy-Gunvfkcu-a 25k9s34-65c1- 6418-0nr5-16p 04y5t6x04">L< /td><td ID="Observati jq-Vjkesl-t53 g9l16-05x5-36 85-4zd5-60k70 h2u7w49">Brandie l</td> Hematocrit 33.5% 34.5-45. Below low normal <td [facility] ([id number]) 0 ID="Observati ([facility] [place] nw-Kmih-00bt1 [facility] rh1-dk65-76h9 [employer] -qm98-f93886k Qu[facility] f95a8">([address] Mormon) 30) Hematocrit ([id number])</td ><td ID="Observati uw-Onryb-80db 9oh8-if81-15d 0-bz60-m45777 cf95a8">33.5< /td><td ID="Observati kn-Dame-51xl9 xg2-fq93-20o2 -mh64-v51534k f95a8">%</td> <td ID="Observati qj-ZohQnwio-3 8ls9lh8-yf84- 04l7-ev99-b80 090mq21q7">34 .5-45.0</td>< td ID="Observati wo-Xohacmlp-2 5ms8ml0-jl66- 44t7-zo51-m77 659io52g9">L< /td><td ID="Observati iw-Pdnxcj-05y j6kq0-oe93-02 u4-jl91-o5438 5di12q4">Brandie l</td> MCV 89.1fl 80.0-100 <td [facility] .0 ID="Observati ([facility] xv-Gify-8n325 [facility] r59-3355-32t3 [employer] -78f6-gzig42h [place] aa8f2">([address] Mormon) 35) MCV</td><td ID="Observati if-Njzyv-0f67 5p15-8395-82y 7-43h6-wols29 baa8f2">89.1< /td><td ID="Observati zp-Meks-2v498 w64-2270-09c8 -94i8-mltv59w aa8f2">fl</td ><td ID="Observati gh-PenFobhx-9 w152t79-8676- 45b0-46y2-wqg e74dcs6f8">80 .0-100.0</td> <td ID="Observati nz-Tsleuqav-8 n572d80-1517- 09k8-82j7-krl x39dnw4m9"></ td><td ID="Observati so-Yruygr-0k1 89x44-8286-58 t0-10q0-mgpz6 0mnb1o5">Brandie l</td> MCH 29.0pg 27.0-34. <td [facility] 0 ID="Observati ([facility] [place] fq-Xejg-ce6s8 [facility] 18r-t18t-4ss7 [employer] -c5m1-53m430n [place] [id number]">([address] Mormon) 40) MCH</td><td ID="Observati os-Qiwjm-hm1f 142g-c67c-2lh 1-l4x0-23s913 c20640">29.0< /td><td ID="Observati mz-Doou-ix4c4 73n-j69s-0rh6 -m0n3-17w335d 97661">pg</td ><td ID="Observati pp-FtgKprzi-t s5y828s-j95p- 3nb0-q8p5-21h 351u42976">27 .0-34.0</td>< td ID="Observati ox-Jcyzdqre-s h7s550u-i49x- 2ex6-a9y8-95n 546k79579"></ td><td ID="Observati qs-Cnbcji-he1 j550y-q60p-7y c9-c7z2-04z52 9a91476">Brandie l</td> MCHC 32.5gm/d 32.0-36. <td [facility] L 0 ID="Observati ([facility] [place] hv-Bgoy-h8x86 [facility] au4-4l08-64c8 [facility] -4l33-eev808u [facility] 7d641">([address] Mormon) 45) MCHC</td><td ID="Observati rr-Uwnlt-d9r3 5nc0-3z97-48y 9-8b26-vct269 b6h623">32.5< /td><td ID="Observati qs-Rnut-t3i39 kv7-9f58-87w5 -7d64-inr445s 7d641">gm/dL< /td><td ID="Observati vl-YiwExxqz-t 5t02eb4-1a79- 08r1-3t98-rlt 464r3b774">32 .0-36.0</td>< td ID="Observati mo-Tyxkjvlh-i 2f97pp4-6z04- 66y5-2q35-uni 683k5a701"></ td><td ID="Observati cx-Hcutcp-c9q 00uy3-6a09-53 j3-7k13-xji67 0r7d903">Brandie l</td> RDW 13.7% 10.3-14. <td [facility] 5 ID="Observati ([facility] lg-Xzku-0rz87 Home of the 57y-8sj0-408f [employer] -4sd0-35v5ue2 [facility] 04be1">([address] Mormon) 60) RDW</td><td ID="Observati rw-Wsxnc-5oj7 100q-0vr8-114 u-0dj3-82r5nk 804be1">13.7< /td><td ID="Observati zd-Xkfa-5ct11 76q-9bn6-665o -3es0-42t9sj7 04be1">%</td> <td ID="Observati ve-GjoUhlbb-7 gs1164h-4ng2- 582s-8bt0-98u 9vh342fq6">10 .3-14.5</td>< td ID="Observati tl-Hzfdqotu-3 aa7239i-4yb3- 226b-8lh3-99a 3jv390lv2"></ td><td ID="Observati ou-Usqalf-9kb 1122s-4um7-29 2a-7ws9-73l0b z743ac9">Brandie l</td> Platelet 240K/uL 150-400 <td [facility] Count ID="Observati ([facility] ([id number]) vy-Fxgp-udk82 [facility] the d76-sa94-5hl0 [facility]-84g33b5 [facility] 159e0">([address] Mormon) 50) Platelet Count ([id number])</td ><td ID="Observati xr-Iglaz-rfq1 2n02-hs85-5gx 8-fb4u-38r46y 3159e0">240</ td><td ID="Observati mm-Lxhb-hmv23 i98-ew25-4la5 -bs0w-95s55m6 159e0">K/uL</ td><td ID="Observati hu-YriUbipn-d sw47c21-ph59- 6zb3-vs9y-23z 07k1768j4">15 0-400</td><td ID="Observati pn-Tfryfegz-p ay46d54-ab70- 6bd5-sm8v-28g 03p7560c7"></ td><td ID="Observati es-Jtocfj-qju 54r75-gg17-1e g0-nq4a-72t99 z2413q3">Brandie l</td> Procedure Vital Signs ID Date Data Source [id number] 03/10/2019 03:29:53 PM EST [facility] ([facility]) Name Value Range Interpretation Code Description Data Source(s) PULSE 78 bpm 78 bpm [facility] ([facility]) PAIN LEVEL 7 7 [facility] ([facility] [place] [facility]) OXYGEN SATURATION 96 % 96 % [facility] RE ([facility]) TEMPERATURE 97.3 F 97.3 F [facility] ( e [place] [facility]) RESPIRATION 20 rpm 20 rpm [facility] ( [facility]) DIASTOLIC BLOOD 82 mmHg 82 mmHg [facility] (The [facility]) SYSTOLIC BLOOD 154 mmHg 154 mmHg [facility] ([facility] [place] [facility] the Priscilla Salgado [facility]) PAIN LEVEL 6 6 [facility] ([facility] [place] [facility] the Priscilla [facility]) DIASTOLIC BLOOD 80 mmHg 80 mmHg [facility] ([facility] [place] [facility] Priscilla Salgado [facility]) SYSTOLIC BLOOD 138 mmHg 138 mmHg [facility] ([facility] [place] [facility]) TEMPERATURE 97.6 F 97.6 F [facility] ([facility] [place] [facility]) TEMPERATURE 98.3 F 98.3 F [facility] ([facility] [place] [facility]) WEIGHT 253.4 lbs 253.4 lbs [facility] ([facility] [place] [facility] Priscilla Salgado [facility]) PULSE 82 bpm 82 bpm [facility] ([facility] [place] [facility] the Priscilla [facility]) PAIN LEVEL 0 0 [facility] ([facility] [place] [facility] the Priscilla Gur[facility]) OXYGEN SATURATION 97 % 97 % [facility] RE ([facility] [place] [facility]) TEMPERATURE 98 F 98 F [facility] ([facility] [place] [facility] RESPIRATION 20 rpm 20 rpm [facility] ([facility] [place] [facility]) PULSE 109 bpm 109 bpm [facility] ([facility] [place] [facility]) DIASTOLIC BLOOD 86 mmHg 86 mmHg [facility] ([facility] [place] [facility]) SYSTOLIC BLOOD 137 mmHg 137 mmHg [facility] (The [facility] [place] [facility]) PAIN LEVEL 0 0 [facility] ([facility] [place] [facility]) TEMPERATURE 97.4 F 97.4 F [facility] ([facility] [place] [facility]) DIASTOLIC BLOOD 74 mmHg 74 mmHg [facility] (The [facility] [place] [facility] the [facility]) SYSTOLIC BLOOD 136 mmHg 136 mmHg [facility] (The [facility] [place] [facility] the [facility]) TEMPERATURE 97.5 F 97.5 F [facility] (Th [facility] [place] [facility]) WEIGHT 242 lbs 242 lbs [facility] ([facility] [place] [facility]) HEIGHT 63 in 63 in [facility] ([facility] [place] [facility]) BLOOD SUGAR 140 mg/dL 140 mg/dL [facility] (Th [facility] [place] [facility]) TEMPERATURE 99 F 99 F [facility] ( [facility] [place] [facility]) RESPIRATION 20 rpm 20 rpm [facility] ( [facility] [place] [facility]) PULSE 116 bpm 116 bpm [facility] ([facility] [place] [facility]) OXYGEN SATURATION 94 % 94 % [facility] RE ([facility] [place] [facility]) DIASTOLIC BLOOD 81 mmHg 81 mmHg [facility] (The [facility] [place] [facility]) SYSTOLIC BLOOD 127 mmHg 127 mmHg [facility] (The [facility] [place] [facility]) BLOOD SUGAR 140 mg/dL 140 mg/dL [facility] ( [facility] [place] [facility])
[2019-11-18] MEDS ORDERED: [UNRECOGNIZED DRUG - OTHER] IVPB ONE (09:30)
[2019-11-18] MEDS ORDERED: ONDANSETRON IVPB ONE (09:30)
[2019-11-18] MEDS ORDERED: DEXAMETHASONE SODIUM PHOSPHATE IVPB ONE (09:30)
[2019-11-18] MEDS ORDERED: WATER IV ONE ×2 (10:00→12:00)
[2019-11-18] MEDS ORDERED: DEXTROSE 5% IV ONE ×2 (10:00→12:00)
[2019-11-18] MEDS ORDERED: DOXORUBICIN HCL LIPOSOMAL IV ONE ×2 (10:00→12:00)
[2019-11-18 10:05] LABS: BASO % 0.1 % (0-2.0); EOS % 0.2 % (0-4.5); HEMATOCRIT 39.5 % (32.4-45.2); HEMOGLOBIN 12.9 GM/dL (10.7-15.3); LYMPH % 37.4 % (8-40); MCH 27.1 pg (25.7-33.7); MCHC 32.6 g/dl (32.0-36.0); MEAN CELL VOLUME 83.1 fl (80-96); MEAN PLT VOLUME 7.8 fl (7.5-11.1); MONO % 7.1 % (3.8-10.2); NEUT % 55.2 % (42.8-82.8); PLATELET COUNT 255 K/MM3 (134-434); RBC 4.75 M/mm3 (3.60-5.2); RDW 17.3 % (11.6-15.6); WHITE BLOOD COUNT 8.8 K/mm3 (4.0-10.0)
[2019-11-18 10:37] LABS: ALBUMIN 3.4 g/dl (3.4-5.0); BILIRUBIN,TOTAL 0.5 mg/dL (0.2-1); BLOOD UREA NITROGEN 25.1 mg/dL (7-18); CALCIUM 8.9 mg/dL (8.5-10.1); CREATININE 1.1 mg/dL (0.55-1.3); POTASSIUM 3.9 mmol/L (3.5-5.1); TOT PROT 7.1 g/dl (6.4-8.2)
[2019-11-18 17:47] VITALS: TEMP 98
[2019-11-18 18:03] VITALS: BP 150/79; PULSE 85
[2019-11-18] MEDS ORDERED: PORTA CATH FLUSH 10 ML IVPUSH ONE (18:03)
== END 2019-11-18 14:45 | disposition home or self-care (01) ==
LOC: JONCCHEMO 07:11
PROVIDERS: ATTEND Internal Medicine Hematology & Oncology
PROC: 3E04305 Introduction of Other Antineoplastic into Central Vein, Percutaneous Approach (ICD-10-PCS; principal; 2019-11-18)
PROC: 3E043GC Introduction of Other Therapeutic Substance into Central Vein, Percutaneous Approach (ICD-10-PCS; 2019-11-18)
DX: Z51.11 Encounter for antineoplastic chemotherapy (principal); C54.1 Malignant neoplasm of endometrium; I10 Essential (primary) hypertension
CPT/HCPCS: 36415; 80053; 85025; 96367; 96413; J2405; Q2049

== ENCOUNTER 2019-12-16 06:42 | Day surgery (SDC) | payer OTHER ==
--- OUTSIDE RECORDS SUMMARY | 2019-12-16 06:48 | XMS ---
:1950 Author Organization [facility] Care Team Providers Name Role Phone [...] is protected by Article 27-F of the [facility] Public Health law. If you continue you may haveaccess to information: Regarding HIV / AIDS; Provided by facilities licensed or operated by the [facility] Office of Mental Health; or Provided by the [facility] Office for People With Developmental Disabilities. If such information is present, then the following [facility] mandated warning applies: This information [...] law may result in a fine or senior care sentence or both. A general authorization for the release of medical or other information is NOT sufficient authorization for further disclosure. Advance Directives Directive Description Tool [employer] Teacher Status Observation Data S ource(s) Description Resuscitation [facility] Resuscitation SI [facility] (The [facility] Facility [facility]) Intubation [facility] Intubation SIGMACAR E (The [facility]) Allergies and Adverse Reactions Type Description Substance Reaction Status Data Source(s ) 9 N/A N/A [facility] (The [facility] of the [facility]) Encounters Encounter Providers Location Date Indications Data Source(s ) Outpatient 07/30/2019 ENDOMETRIAL CA [facility] 09:35:00 AM EDT ENDOMETRIAL CA Outpatient 04/13/2019 12:20:00 PM UTERINE CA NO T DIABETIC [facility] EST UTERINE CA NOT DIABETIC Inpatient Attender: Jhonny Kang [address] 02/23/2019 02:11:00 [facility] (The [facility] EST - 03/10/2019 [place] [facility] of the 11:00:[address] [facility]) Patient discharged. Outpatient 01/26/2019 11:29:00 AM ENDOMETRIAL C A NOT DIAB [facility] EST 242LBS ENDOMETRIAL CA NOT DIAB 242LBS Medications Medication Brand Start Product Dose Route Administrative Pharm[facility] Indications Reaction Description Data Name Date Form Instructions Instructions Source(s) oxycodone 5 Oxycod 02/27/ oxycod one 5 [facility] mg tablet one 2018 ed mg tablet (The Hydroc 01:53: Shaw hlorid 14 AM Home of e 5 MG EST the Oral [facility] Tablet [facility]) acetaminoph 313043 02/24/ acetam inophe [facility] en 500 mg 58952 2018 ed n 500 mg (The tablet 04:05: tablet [facility] 15 AM Home of EST the [facility]) aspirin 325 067597 aspiri n 325 [facility] mg tablet 82573 2019 ed mg tablet (The 06:05: [facility] 56 AM Home of EST [facility]) senna 8.6 979647 senna 8. 6 mg [facility] mg tablet 16136 2019 ed tablet (The 06:05: [facility] 56 AM Home of EST the [facility]) gabapentin 520623 complet gabapen tin [facility] 300 mg 10266 2018 ed 300 mg (The capsule 06:05: capsule [place] 55 AM Home of EST [facility]) metoprolol 369774 complet metopro lol [facility] succinate 19250 2018 ed succinate ER ( The ER 25 mg 06:05: 25 mg Shaw tablet,exte 55 AM tablet,exten Home of nded EST ded release the release 24 24 hr [facility] ca hr [facility]) hydrochloro Hydroc complet hydroc hlorot [facility] thiazide 25 hlorot 2019 ed hiazide 25 (The mg tablet hiazid 06:05: mg tablet [place] 25 55 AM Home of MG EST the Oral [facility]) amlodipine 128979 complet amlodip ine [facility] 10 mg 96327 2018 ed 10 mg tablet (The tablet 06:05: [facility] 55 AM Home of EST the [facility]) docusate 610270 complet docusate [facility] sodium 100 53468 2018 ed sodium 100 (T he mg tablet 06:05: mg tablet [place] 51 AM Home of EST the [facility]) Insurance Providers Payer name Policy type Policy ID Covered Covered republican's Policy P vonnie / Coverage republican ID relationship to [facility] type jones MEDICAID [id number] SP [id number] MEDICARE [id number] SP [id number] 11 1 MEDICAID [id number] PT [id number] MEDICARE [id number] PT [id number] 11 1 Medicaid - [place] Medicaid [id number] Self [id number] Medicare Part Medicare [id number] Self [id number] Part B 1 Medicare Part Medicare [id number] Self [id number] Part A 1 Medicaid - [place] 3 [id number] Self [id number] Medicare Part 2 [id number] Self [id number] B 1 Medicare Part 18 [id number] Self [id number] A 1 MEDICAID [id number] SP [id number] MEDICARE [id number] SP [id number] 11 1 MEDICAID [id number] SP [id number] MEDICARE [id number] SP [id number] 11 1 SELF PAY SP INSURANCE Problems, Conditions, and Diagnoses Code Display Name Description Problem Type Effective Data Sour ce(s) Dates F1.210 Nicotine F1.210 Diagnosis 07/30/2019 [place] dependence, 09:35:00 AM Hospital cigarettes, EDT uncomplicated 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, 09:35:00 AM Hospital unspecified EDT 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 07/30/2019 [place] thyroid nodule 09:35:00 AM Hospital EDT 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 09:35:00 AM Hospi alycia of bone EDT 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 09:35:00 AM Hospital EDT 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[facility] (The polyneuropathy polyneuropathy 12:00:00 AM [place] EST of the [facility]) Z11.1 Encounter for Encounter for Diagnosis 02/23/2019 SIGMAC[facility] E (The screening for screening for 12:00:00 AM [place] respiratory respiratory EST of the tuberculosis tuberculosis [facility]) Z87.891 Personal history Personal history Diagnosis 02/23/2019 SI [facility] (The of nicotine of nicotine 12:00:00 AM [facility] Ho me dependence dependence EST of the [facility]) Z85.41 Personal history Personal history Diagnosis 02/23/2019 SI [facility] (The of malignant of malignant 12:00:00 AM [facility] Home 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 [facility]) Z66 Do not resuscitate Do not resuscitate Diagnosis 9 [facility] (The 12:00:00 AM [facility] Home EST of the [facility]) K59.00 Constipation, Constipation, Diagnosis 02/23/2019 SIG[facility] E (The unspecified unspecified 12:00:00 AM [facility] me EST of the [facility]) H53.9 Unspecified visual Unspecified visual Diagnosis 9 [facility] (The disturbance disturbance 12:00:00 AM [facility] me EST of [facility]) I10 Essential Essential Diagnosis 02/23/2019 [facility] (The (primary) (primary) 12:00:00 AM [facility] Home hypertension hypertension EST of the [facility]) M17.12 Unilateral primary Unilateral primary Diagnosis 9 [facility] (The osteoarthritis, osteoarthritis, 12:00:00 AM [place] left knee left knee EST of the [facility]) Z96.652 Presence of left Presence of left Diagnosis 02/23/2019 [facility] (The artificial knee artificial knee 12:00:00 AM [place] joint joint EST of [facility]) Z47.1 Aftercare Aftercare Diagnosis 02/23/2019 [facility] (The following joint following joint 12:00:00 AM [place] replacement replacement EST of the surgery surgery [facility]) J98.11 Atelectasis J98.11 Diagnosis 01/26/2019 [place] 11:29:00 AM Hospital EST C77.2 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 ID Date Data Source [id number] 09/03/2019 08:35:00 AM EDT [facility] Name Value Range Interpretation Description Data Sup porting Code Source(s) Document(s ) SARS [facility] CORONAVIRUS 2 RNA This lab was ordered by [facility] and reported by [facility]. ID Date Data Source [id number] 02/24/2019 02:21:32 AM EST [facility] (Th e [facility] the [facility]) Name Value Range Interpretation Description Data Sup porting Code Source(s) Document(s ) Sodium Serum 141mmo 135-14 <td [facility] ([id number]) l/L 5 ID="Observation-T (The lyj-3l333361-58c1 Shaw -3el8-v085-m6brj0 Home of the 9b5b3a">([id number]) Confucianist Sodium Serum Episcopal ([id number])</td><td Shinto) ID="Observation-V grem-7m577531-33q 5-3ad6-v3969hk9-m923-l9ojq 56d4y5q">141</td> <td ID="Observation-U zps-9a702148-61i1 -2cp0-s445-g2ljd4 9b5b3a">mmol/L</t d><td ID="Observation-R efRange-1t148308- 67c9-8ir1-p909-f9 yxz92m9e7h">135-1 45</td><td ID="Observation-A bnormal-1e696792- 90a3-8zh8-l079-q9 sgd89y3v9m"></td> <td ID="Observation-S unctc-3b728297-70 z6-1pi8-j9457ho6-d612-y1wn g86a6t9f">Final</ td> Potassium Serum 3.3mmo 3.5-5. Below low <td [facility] ([id number]) l/L 3 normal ID="Observation-T (The oiz-0946q787-kqz2 Shaw -51s1-8s50-r15r92 Home of the b304cd">(6412062) Confucianist Potassium Serum Episcopal ([id number])</td><td Shinto) ID="Observation-V xosw-0157o473-lcp 0-01j4-9t2020u8-1d52-r32s5 7d516cu">3.3</td> <td ID="Observation-U dja-6307j161-zlx3 -78r7-9t16-v02u06 b304cd">mmol/L</t d><td ID="Observation-R efRange-8812j155- hzn0-07t1-4i27-d8 7z62g024pg">3.5-5 .3</td><td ID="Observation-A bnormal-1174u641- abu6-72u9-3h46-d8 9b44p143im">L</td ><td ID="Observation-S qjexb-3261d320-xu j9-11c1-5n5329v0-4u28-y70g 02x934kd">Final</ td> Chloride Serum 97mmol 96-108 <td [facility] ([id number]) /L ID="Observation-T (The ukb-ky3b2686-r66p [facility] -9110-hsko-p452c6 Home of the ">([id number]) Confucianist Chloride Serum Episcopal ([id number])</td><td Shinto) ID="Observation-V flvf-cm8k7102-z94 r-2924-cflt-c891b 07h33f8">97</td>< td ID="Observation-U lnb-uj8c7658-q96c -4357-xmbj-z786n1 8e29d5">mmol/L</t d><td ID="Observation-R efRange-ah6p8143- a28j-2516-hvxq-z0 59k28r53l3">96-10 8</td><td ID="Observation-A bnormal-cq4l4447- i09f-6250-bymy-m0 96g85a78c8"></td> <td ID="Observation-S emwsl-oj0q9138-a8 8e-9967-vghx-c891 p45u85j0">Final</ td> CO2- Serum 28mmol 22-31 <td [facility] ([id number]) /L ID="Observation-T (The pnz-786gl669-548h [facility] -68oj-cr6g-7i4t89 Home of the 3dad7f">(1915595) Confucianist CO2- Serum Episcopal (2598044)</td><td Shinto) ID="Observation-V sdmy-402yw630-242 m-27pr-my8k-0d8a3 04frt7d">28</td>< td ID="Observation-U aqk-571by946-236s -65ip-gg0z-1y7u74 3dad7f">mmol/L</t d><td ID="Observation-R efRange-496ds360- 648j-59so-mb8d-0d 4u478phu0u">22-31 </td><td ID="Observation-A bnormal-134zg563- 480h-67yo-cx9o-0d 5m364sec0y"></td> <td ID="Observation-S fpovt-094lw399-42 8d-81oy-yo7s-0d8a 784det7c">Final</ td> Anion Gap 16mmol 5-17 <td [facility] /L ID="Observation-T (The jfh-9p6kew70-9l05 [facility] -821f-5c23-e745hb Home of the d17d4d">(6478320) Confucianist Anion Gap</td><td Episcopal ID="Observation-V Shinto) ftgw-8c5ppx13-2r4 7-406k-4i65-d970f lw72y5n">16</td>< td ID="Observation-U qpj-5h0lky09-4y95 -673f-0v45-e447mp d17d4d">mmol/L</t d><td ID="Observation-R efRange-1s3pwk77- 0k10-361u-4e48-e4 55iqy55a9f">5-17< /td><td ID="Observation-A bnormal-8w5kql29- 5e73-178d-0b02-s5 87xln85f9k"></td> <td ID="Observation-S tlhtv-1w7ogg66-9v 69-997t-4i49-d970 ffv89s2h">Final</ td> Glucose ([id number]) 123mg/ 70-99 Above high <td [facility] dL normal ID="Observation-T (The lil-ia021zo2-0u94 [facility] -0nu6-1pwo-288375 Home of the p98412">(2650659) Confucianist Glucose Episcopal (0447113)</td><td Shinto) ID="Observation-V xmwy-zz948rs3-6e2 7-3dc8-6wyj8wt4-1tlx-14215 5b26238">123</td> <td ID="Observation-U yui-jz477aa1-9h31 -0wy6-0pog-293043 k31104">mg/dL</td ><td ID="Observation-R efRange-ne886xt8- 0e66-1fp9-8uwj-43 7979d95505">70-99 </td><td ID="Observation-A bnormal-fi584gm3- 4b16-3rk8-8iwq-66 0148o92574">H</td ><td ID="Observation-S kaqpy-cn795dm6-0h 80-1hj5-0rfo8vh3-2jmj-7172 09j46983">Final</ td> Blood Urea 29mg/d 7-23 Above high <td [facility] Nitrogen L normal ID="Observation-T (The (9670903) nep-9082rz4d-2f28 [facility] -197p-a0r5-84c751 Home of the 4baae9">(5043487) Confucianist Blood Urea Episcopal Nitrogen Shinto) (5315883)</td><td ID="Observation-V pvpj-1514qv3b-8h5 2-586i-f3p2-66b92 59bbaj3">29</td>< td ID="Observation-U gwk-8935fe1v-7a40 -001h-b0d0-12b120 4baae9">mg/dL</td ><td ID="Observation-R efRange-6481jw2e- 0d68-079m-q8s5-96 o9114raft8">7-23< /td><td ID="Observation-A bnormal-8858gh2q- 2y22-884s-u0d9-25 s8793tkeh5">H</td ><td ID="Observation-S ifrvj-5502ux0n-7z 98-995c-q5c6-66b9 994joef0">Final</ td> Creatinine- Serum 0.92mg 0.50-1 <td [facility] (5822899) /dL .30 ID="Observation-T (The hyn-mq3236fr-v0v8 [facility] -686p-o377-727238 Home of the 59758h">(3995653) Confucianist Creatinine- Serum Episcopal (4464777)</td><td Shinto) ID="Observation-V uwkk-bl9618ta-e6o 2-168s-n877-08848 493389h">0.92</td ><td ID="Observation-U mdi-se1892me-g1v0 -512b-c520-858172 77417m">mg/dL</td ><td ID="Observation-R efRange-qf4145gj- b5n9-938j-b518-40 235758959h">0.50- 1.30</td><td ID="Observation-A bnormal-yv5507pr- r7j7-606y-m462-55 652513958w"></td> <td ID="Observation-S aakbb-pi7677ar-h1 i6-696z-r252-0884 1245926a">Final</ td> Calcium- Serum 9.2mg/ 8.4-10 <td [facility] (8247323) dL .5 ID="Observation-T (The ldt-x50u0r5d-f659 [facility] -24ps-5k83-55ou34 Home of the e45b66">(7930414) Confucianist Calcium- Serum Episcopal (6418473)</td><td Shinto) ID="Observation-V fcht-u71u7z4a-s01 8-87ih-9a06-59be6 7v49z61">9.2</td> <td ID="Observation-U dlc-g38b8x9d-u825 -18sv-1a98-52qw85 e45b66">mg/dL</td ><td ID="Observation-R efRange-n30n5l5i- d070-85yh-3u74-03 ws32m20n14">8.4-1 0.5</td><td ID="Observation-A bnormal-l14c8a3i- n807-65lp-8p66-85 pc02e62e19"></td> <td ID="Observation-S hxuxe-p87s8r3j-m1 12-62ce-6v38-59be 34c94m87">Final</ td> Protein Total 6.5g/d 6.0-8. <td [facility] Serum (5098163) L 3 ID="Observation-T (The tbj-13120g72-5x8c [facility] -896i-cx5t-343490 Home of the 3b1af2">(2056326) Confucianist Protein Total Episcopal Serum Shinto) (5845627)</td><td ID="Observation-V zsyv-80650o46-7f0 f-375h-np1l-09891 16u3yh1">6.5</td> <td ID="Observation-U hnn-66344b42-0q0n -970g-xz6r-607732 3b1af2">g/dL</td> <td ID="Observation-R efRange-76278b38- 5a3y-463a-lp4q-96 48021p8ue1">6.0-8 .3</td><td ID="Observation-A bnormal-68484n13- 9r1f-689i-xw5a-20 99879r3wr1"></td> <td ID="Observation-S iqore-92378e91-0x 7q-370k-qa1n-0989 951j4xw6">Final</ td> Albumin- Serum 3.8g/d 3.3-5. <td [facility] (4569184) L 0 ID="Observation-T (The qxl-4jwg04gc-gqa6 [facility] -8s6x-wx84-lni045 Home of the ad7be7">(0504130) Confucianist Albumin- Serum Episcopal (6452160)</td><td Shinto) ID="Observation-V rcda-5ohq53mo-pyn 3-7m8s-po933t6j-ry84-msk51 9jd0cd8">3.8</td> <td ID="Observation-U jjf-1hwe75rj-hsa1 -5v5x-mk04-stn593 ad7be7">g/dL</td> <td ID="Observation-R efRange-5bky63lm- bxu6-9e2v-lm67-cb l385tl4ez2">3.3-5 .0</td><td ID="Observation-A bnormal-7zxh68tg- qst4-9x3k-ww62-cb a950qz7mb0"></td> <td ID="Observation-S iogdv-8gjq99vg-eh z2-5q6j-pt366a0x-em72-cfe6 89lb6ed6">Final</ td> Bilirubin Total 0.8mg/ 0.2-1. <td [facility] (5600812) dL 2 ID="Observation-T (The toi-v9465464-7885 [facility] -6199-kza0-lysx79 Home of the 8j2431">(2636645) Confucianist Bilirubin Total Episcopal (3596906)</td><td Shinto) ID="Observation-V fhyq-e9292203-638 1-3741-mne6-dffe4 08q5952">0.8</td> <td ID="Observation-U iyx-t6641657-1241 -8768-ppw8-yzsx01 7w7390">mg/dL</td ><td ID="Observation-R efRange-d2161518- 4215-2808-rjj3-df vn490g8013">0.2-1 .2</td><td ID="Observation-A bnormal-b1132200- 7067-9371-eei5-df ft824c4342"></td> <td ID="Observation-S sapsn-t7550514-65 01-2457-rys2-dffe 724u7444">Final</ td> Aspartate 17U/L 10-40 <td [facility] Aminotransferase ID="Observation-T (The (8857492) kur-76nr6k9o-663b [facility] -51pi-y2c5-0k60y6 Home of the 37644s">(3097351) Confucianist Aspartate Episcopal Aminotransferase Shinto) (5547526)</td><td ID="Observation-V rmoa-89zp2r4r-718 o-42kn-g5x8-4a01e 484613m">17</td>< td ID="Observation-U zla-48jn6z4q-706t -30sc-p6b4-5t21m4 73936s">U/L</td>< td ID="Observation-R efRange-37pe0p2y- 935v-41od-n1w3-4a 30f963890c">10-40 </td><td ID="Observation-A bnormal-06ur6d8p- 013j-36vt-p0c1-4a 87x899375r"></td> <td ID="Observation-S ambot-76ud4g5u-65 6t-56tr-w6u4-4a01 u952928j">Final</ td> Alanine 11U/L 10-45 <td [facility] Aminotransferase ID="Observation-T (The (6912781) ivp-968x8f40-140b [facility] -961o-72x0-eani35 Home of the 7f2132">(4149336) Confucianist Alanine Ep[facility] Aminotransferase Shinto) (5328546)</td><td ID="Observation-V fhmd-554p8t23-601 l-833o-34r2-dddc2 63p8421">11</td>< td ID="Observation-U hov-457e6o69-033o -393b-51c5-cows85 9c8887">U/L</td>< td ID="Observation-R efRange-745l7x03- 426o-829g-43e4-dd jc393n8613">10-45 </td><td ID="Observation-A bnormal-093p3f24- 087a-374s-96h8-dd dg506f3654"></td> <td ID="Observation-S yhneq-795p9m98-42 7y-860r-59x0-dddc 482s6419">Final</ td> Alkaline 51U/L 40-120 <td [facility] Phosphatase- ID="Observation-T (The Serum (0660974) inq-43z17x37-3p56 [place] -790c-6018-k53s70 Home of the dbbd0d">(1097211) Confucianist Alkaline Episcopal Phosphatase- Shinto) Serum (8023281)</td><td ID="Observation-V ybvt-48x84k65-4o4 0-657v-7789-a79c2 6tjay5i">51</td>< td ID="Observation-U qkd-52c04u78-7p54 -322f-3401-b75h12 dbbd0d">U/L</td>< td ID="Observation-R efRange-39k76q74- 1g45-030o-5718-v4 0e48czxu3j">40-12 0</td><td ID="Observation-A bnormal-97k27q59- 1x29-951l-5829-a6 7g58kgmm4m"></td> <td ID="Observation-S pdshn-75n86q27-6o 61-403k-1526-a79c 83ewpa6k">Final</ td> eGFR, 75mL/m >=60 <td [facility] -[place] in ID="Observation-T (The 3M2 jwd-7jd324u2-3y40 [facility] -62s7-r2ln-j53858 Home of the cr954v">(7485968) Confucianist eGFR, Episcopal -[place]ankan< Shinto) /td><td ID="Observation-V qxsa-8bu523j9-0o0 7-92q7-z3vh76o1-k2gz-l9952 8im412h">75</td>< td ID="Observation-U kgn-0gq883t8-2f79 -57y6-n1hj-m40122 tw479m">mL/min/1. 73M2</td><td ID="Observation-R efRange-1vn426x2- 8d64-96d9-u7lf-z9 8237hl118s">>=60< /td><td ID="Observation-A bnormal-6eb505r0- 3t81-53e1-f6ts-d9 5581kq676z"></td> <td ID="Observation-S sfbyc-1cn638l8-3c 29-85c3-i1rv02s3-q8sa-d689 41bq792t">Final</ td> eGFR, Non 65mL/m >=60 <td [facility] -[place] in ID="Observation-T (The 3M2 wbr-m698g5v6-848g [facility] -974v-q2f2-i6p814 Home of the 026485">(9619983) Confucianist eGFR, Non Episcopal -[place]ankan< Shinto) /td><td ID="Observation-V kmzw-l150y5c9-243 r-079o-y4b2-c6e36 5063672">65</td>< td ID="Observation-U lof-x170p5m6-802p -220y-n2j3-c0e374 434989">mL/min/1. 73M2</td><td ID="Observation-R efRange-r953j6u7- 700o-440e-h0f3-c6 z688668763">>=60< /td><td ID="Observation-A bnormal-l443o4j1- 729w-345t-g1b1-c6 w706807147"></td> <td ID="Observation-S namlj-f865l5x0-72 0e-971o-k5k3-c6e3 52736734">Final</ td> <td colspan="6"><list><item>Type: Lab, Date: 02/24/2019 01:25 [...] patients with unstable creatinine levels.Lab formed at: [facility] [employer], [address], [place], [address], D tia Birch MD</item></list></td> ID Date Data Source [id number] 02/24/2019 02:11:58 AM EST [facility] ([facility] Name Value Range Interpretation Description Data Sup porting Code Source(s) Document(s ) WBC ([id number]) 7.94K/uL 3.80-10. <td [facility] 50 ID="Observati (The [facility] vx-Ocot-9q092 Home of the n3l-39n2-0a8h Confucianist -n0wk-5zyz720 Episcopal 54ae1">([address] [place] [address]) 15) WBC ([id number])</td ><td ID="Observati zy-Acowx-8u52 2r3a-30b7-6j3 y-e5bb-9bky28 254ae1">7.94< /td><td ID="Observati tx-Hsrv-8a460 y9q-44b0-0d3u -a0ks-8spu097 54ae1">K/uL</ td><td ID="Observati bp-EybLgysn-2 w917x9k-68y3- 2k4w-u6zl-9lz d68539mc3">3. 80-10.50</td> <td ID="Observati bn-Ibzlndfh-1 o072d8b-99q4- 7y3u-s9lc-9tp u08230nh9"></ td><td ID="Observati lr-Kngzxk-6q4 88w7k-19p0-4y 8b-e8oy-5djx4 2843us8">Brandie l</td> RBC 3.76M/uL 3.80-5.2 Below low normal <td [facility] 0 ID="Observati (The [facility] vh-Awgd-60n2f Home of the 923-7tt7-3313 Confucianist -90fe-9750371 Episcopal 266fa">([address] [place] [address]) 20) RBC</td><td ID="Observati qv-Pmomj-79r4 n098-6vq0-545 1-44ra-817348 1266fa">3.76< /td><td ID="Observati gj-Suuf-37w3q 525-9ib1-6146 -90fe-6730923 266fa">M/uL</ td><td ID="Observati ru-BhwEjwbw-3 8a4v231-8hx5- 8839-01xx-469 5813857ks">3. 80-5.20</td>< td ID="Observati dc-Bfrcveet-2 0d7i369-1or0- 8739-85pm-112 5518335nm">L< /td><td ID="Observati lq-Swdxhr-49l 3c965-9nd2-50 09-93df-58349 16024zp">Brandie l</td> Hemoglobin 10.9g/dL 11.5-15. Below low normal <td SIG[facility] ([id number]) 5 ID="Observati ([facility] zi-Hpon-c91t0 [facility] x26-98a5-1472 [facility] -3xo4-78q80i3 [facility] b4a75">([address] [employer]) 25) Hemoglobin ([id number])</td ><td ID="Observati pt-Ulpkk-g06x 0s42-51k6-273 3-1jk9-78f61n 2b4a75">10.9< /td><td ID="Observati hl-Vaqf-d10b9 k43-82k7-2045 -9iu4-48a92g1 b4a75">g/dL</ td><td ID="Observati hd-HasQyolk-r 07z9f19-35n9- 9947-0ee7-78o 36f9a4y56">11 .5-15.5</td>< td ID="Observati ix-Cyiqqcoa-h 81u2m38-40j3- 5576-8vk8-77o 03n3f3h77">L< /td><td ID="Observati hy-Dnpfrf-n16 w5m28-30p2-34 93-4fj4-00o78 j8x3u70">Brandie l</td> Hematocrit 33.5% 34.5-45. Below low normal <td [facility] ([id number]) 0 ID="Observati ([facility] wi-Qfmr-14pg5 [facility] ix3-ka39-49n7 [facility] -bl48-w05224f [facility] f95a8">([address] [employer]) 30) Hematocrit ([id number])</td ><td ID="Observati mm-Rcwlf-88tg 2iq3-ju59-84t 1-za56-t39580 cf95a8">33.5< /td><td ID="Observati vo-Cgey-02hg5 rr0-oh34-15d4 -je79-c96794r f95a8">%</td> <td ID="Observati zw-BonOwroa-9 5en7ji4-by56- 41o4-qw59-d71 833kw75z2">34 .5-45.0</td>< td ID="Observati ki-Hbvfzads-0 5us0iz2-yn70- 22a7-rb98-r90 460kp75u6">L< /td><td ID="Observati xw-Lgukmk-18t t6il7-bb06-14 q6-ve42-p5043 5ub78u4">Brandie l</td> MCV 89.1fl 80.0-100 <td [facility] .0 ID="Observati ([facility] ki-Elvd-8c773 [facility] h96-0074-55u5 [facility] -56v3-bfkc32u [facility] aa8f2">([address] [employer]) 35) MCV</td><td ID="Observati gw-Foiln-9e24 0w39-9544-54i 5-43f9-yydg46 baa8f2">89.1< /td><td ID="Observati fk-Lose-2i115 m22-6104-20v0 -32z4-zyzz38m aa8f2">fl</td ><td ID="Observati sn-FzlSywhb-6 m135y17-8780- 38d6-92q5-bza h56kvs7p1">80 .0-100.0</td> <td ID="Observati wy-Txjqegjw-0 o034x48-0180- 54g6-47b6-ulp p17kqk2b8"></ td><td ID="Observati as-Xcnhdu-2d1 17a83-5628-03 e6-91b6-bvij3 2jda4q8">Brandie l</td> MCH 29.0pg 27.0-34. <td [facility] 0 ID="Observati ([facility] rm-Tpro-wl2n7 [facility] 83y-v45t-9pk8 [facility] -p3e7-48f415m [facility] [address]">([address] [employer]) 40) MCH</td><td ID="Observati bk-Nkkie-el1v 965f-m33e-7vx 2-a5n5-48e272 r91426">29.0< /td><td ID="Observati tc-Jfxy-so9x9 55y-f64x-8bg8 -p5r0-46e505r 24530">pg</td ><td ID="Observati zn-EclXzykn-k i3j486g-i08t- 0uj5-a2e1-15k 404g78009">27 .0-34.0</td>< td ID="Observati bz-Mslwsoyb-q k6a241m-w74u- 3ev2-u4q7-08t 029v57886"></ td><td ID="Observati xt-Psewoh-tw0 c657a-i44u-0v u4-t5n2-41x17 0h92709">Brandie l</td> MCHC 32.5gm/d 32.0-36. <td [facility] L 0 ID="Observati ([facility] ax-Xkkj-n5t63 [facility] ka7-4n82-71v6 [facility] -8u20-cbw851c [facility] 7d641">([address] [employer]) 45) MCHC</td><td ID="Observati ig-Gqorp-b6z6 5ej9-2d45-01t 7-0z92-swa469 i5c628">32.5< /td><td ID="Observati do-Jxyt-o8c62 lb7-0l74-96z0 -5c73-utd476b 7d641">gm/dL< /td><td ID="Observati dk-PhdWicbj-w 3t37ri9-8k69- 23y9-2m39-nuo 583g0u574">32 .0-36.0</td>< td ID="Observati qr-Cbdekniu-p 7r17xz6-9l36- 65g5-3o57-hac 339a0y115"></ td><td ID="Observati ur-Udtjwi-w4g 24nr9-3x90-83 s0-4z11-fby13 6g9y821">Brandie l</td> RDW 13.7% 10.3-14. <td [facility] 5 ID="Observati ([facility] la-Ruoe-1ol83 [facility] 26k-8hs1-150b [facility]uc[facility] -6xd8-26k0kj3 [facility] 04be1">([address] [employer]) 60) RDW</td><td ID="Observati hy-Gvqmo-6ea6 589e-6nq8-572 t-0yi7-94m7dj 804be1">13.7< /td><td ID="Observati gf-Zwht-5jc44 70u-0gz9-320s -6ng1-06n5we0 04be1">%</td> <td ID="Observati dk-VwrDopay-2 ou7714v-0yx8- 084l-3sk7-87z 6vu033ei3">10 .3-14.5</td>< td ID="Observati pj-Aytfofoc-3 pj4187y-5cw5- 372i-2mo6-97f 0vd459mg2"></ td><td ID="Observati od-Sngkxa-1rs [id number]">Brandie l</td> Platelet 240K/uL 150-400 <td SIG[facility]ARE Count ID="Observati ([facility] ([id number]) [id number] Home of the [id number] Confucianist -[id number] Episcopal [id number]">([id number] Shinto) 50) Platelet Count ([id number])</td ><td ID="Observati [id number]">240</ td><td ID="Observati [id number]">K/uL</ td><td ID="Observati [id number]">15 0-400</td><td ID="Observati [id number]"></ td><td ID="Observati [id number]">Brandie l</td> Procedure Vital Signs ID Date Data Source [id number] 03/10/2019 03:29:53 PM EST [facility] ([facility]) Name Value Range Interpretation Code Description Data Source(s) PULSE 78 bpm 78 bpm [facility] ([facility] PAIN LEVEL 7 7 [facility] ([facility]) OXYGEN SATURATION 96 % 96 % SIGMACA RE ([facility]) TEMPERATURE 97.3 F 97.3 F [facility] ( e [facility]) RESPIRATION 20 rpm 20 rpm [facility] ( e [facility]) DIASTOLIC BLOOD 82 mmHg 82 mmHg [facility] (The [facility]) SYSTOLIC BLOOD 154 mmHg 154 mmHg [facility] ([facility]) PAIN LEVEL 6 6 [facility] ([facility] DIASTOLIC BLOOD 80 mmHg 80 mmHg [facility] ([facility] SYSTOLIC BLOOD 138 mmHg 138 mmHg [facility] ([facility]) TEMPERATURE 97.6 F 97.6 F [facility] ([facility]) TEMPERATURE 98.3 F 98.3 F [facility] ([facility]) WEIGHT 253.4 lbs 253.4 lbs [facility] ([facility] PULSE 82 bpm 82 bpm [facility] ([facility]) PAIN LEVEL 0 0 [facility] ([facility]) OXYGEN SATURATION 97 % 97 % SIGMACA RE ([facility]) TEMPERATURE 98 F 98 F [facility] ([facility]) RESPIRATION 20 rpm 20 rpm [facility] ([facility]) PULSE 109 bpm 109 bpm [facility] ([facility]) DIASTOLIC BLOOD 86 mmHg 86 mmHg [facility] ([facility]) SYSTOLIC BLOOD 137 mmHg 137 mmHg [facility] ([facility]) PAIN LEVEL 0 0 [facility] ([facility]) TEMPERATURE 97.4 F 97.4 F [facility] ([facility]) DIASTOLIC BLOOD 74 mmHg 74 mmHg [facility] ([facility]) SYSTOLIC BLOOD 136 mmHg 136 mmHg [facility] ([facility]) TEMPERATURE 97.5 F 97.5 F [facility] ([facility]) WEIGHT 242 lbs 242 lbs [facility] ([facility] [facility]) HEIGHT 63 in 63 in [facility] ([facility]) BLOOD SUGAR 140 mg/dL 140 mg/dL [facility] ([facility] TEMPERATURE 99 F 99 F [facility] ([facility]) RESPIRATION 20 rpm 20 rpm [facility] ( [facility]) PULSE 116 bpm 116 bpm [facility] ([facility]) OXYGEN SATURATION 94 % 94 % SIG[facility]A RE ([facility]) DIASTOLIC BLOOD 81 mmHg 81 mmHg [facility] ([facility] [employer] [facility]) SYSTOLIC BLOOD 127 mmHg 127 mmHg [facility] ([facility]) BLOOD SUGAR 140 mg/dL 140 mg/dL [facility] ( [facility])
[2019-12-16] MEDS ORDERED: DEXAMETHASONE SODIUM PHOSPHATE IVPB ONE (10:00)
[2019-12-16] MEDS ORDERED: [UNRECOGNIZED DRUG - OTHER] IVPB ONE (10:00)
[2019-12-16] MEDS ORDERED: ONDANSETRON IVPB ONE (10:00)
[2019-12-16] MEDS ORDERED: WATER IV ONE (10:30)
[2019-12-16] MEDS ORDERED: DOXORUBICIN HCL LIPOSOMAL IV ONE (10:30)
[2019-12-16] MEDS ORDERED: DEXTROSE 5% IV ONE (10:30)
[2019-12-16 11:01] LABS: BASO % 0.8 % (0-2.0); HEMATOCRIT 38.3 % (32.4-45.2); HEMOGLOBIN 12.6 GM/dL (10.7-15.3); LYMPH % 32.8 % (8-40); MCH 27.3 pg (25.7-33.7); MEAN CELL VOLUME 82.5 fl (80-96); MEAN PLT VOLUME 7.9 fl (7.5-11.1); MONO % 8.7 % (3.8-10.2); NEUT % 57.7 % (42.8-82.8); PLATELET COUNT 252 K/MM3 (134-434); RBC 4.64 M/mm3 (3.60-5.2); RDW 17.1 % (11.6-15.6); WHITE BLOOD COUNT 8.8 K/mm3 (4.0-10.0)
[2019-12-16 11:25] LABS: POTASSIUM 3.9 mmol/L (3.5-5.1)
[2019-12-16 11:42] LABS: ALBUMIN 3.2 g/dl (3.4-5.0); BILIRUBIN,TOTAL 0.5 mg/dL (0.2-1); BLOOD UREA NITROGEN 17.7 mg/dL (7-18); CALCIUM 8.4 mg/dL (8.5-10.1); CREATININE 0.9 mg/dL (0.55-1.3); TOT PROT 6.8 g/dl (6.4-8.2)
[2019-12-16 12:13] VITALS: BP 154/90; TEMP 98.2
[2019-12-17] MEDS ORDERED: PORTA CATH FLUSH 10 ML IVPUSH ONE (08:04)
[2019-12-17 08:05] VITALS: PULSE 67
== END 2019-12-16 10:30 | disposition home or self-care (01) ==
LOC: JONCCHEMO 06:42
PROVIDERS: ATTEND Internal Medicine Hematology & Oncology
DX: Z53.8 Procedure and treatment not carried out for other reasons (principal)
CPT/HCPCS: 36415; 80053; 85025; 86304; 96365

== ENCOUNTER 2019-12-16 12:12 | Emergency (ER) | payer OTHER ==
[2019-12-16 12:32] VITALS: TEMP 97.6; BMI 46.0
[2019-12-16] MEDS ORDERED: morphine CARPU-JECT 4 MG/1 ML DISP.SYRIN IVPUSH ONE (12:42)
[2019-12-16] MEDS ORDERED: ONDANSETRON 4 MG/2 ML VIAL IVPUSH ONE (12:42)
[2019-12-16] MEDS ORDERED: SODIUM CHLORIDE 0.9% 500 ML INFUS.BAG IV ONE (12:42)
--- NOTE | 2019-12-16 13:09 | PDOC ---
Documentation entered by Prince Mobley SCRIBE, acting as scribe for Jojo Greenwood MD. Jojo Greenwood MD: This documentation has been prepared by the Itz newman Angel, SCRIBE, under my direction and personally reviewed by me in its entirety. I confirm that the documentation accurately reflects all work, treatment, procedures, and medical decision making performed by me. History of Present Illness - General Stated Complaint: Pain History Source: Patient Exam Limitations: No Limitations - History of Present Illness Travel History: No Initial Comments: 12/16/19 12:53 The patient is a 69 year old female with a significant past medical history of HTN, h/o DVT not on anticoagulation, and endometrial cancer s/p CHILANGO-SBO 07/15/2018, last chemo treatment about 1 month ago 11/2019, who presents to the ED with diffuse, mid abdominal pain for 3 days. Pt states she has sharp diffuse abdominal pain, nonradiating, no alleviating or exacerbating factors, rated 10/10, no meds taken today. The patient states this morning she went to see (PMD) for chemo and notified her of her abdominal pain and referred her to the ED for evaluation. Denies fever, chills, chest pain, SOB, palpitation, dizziness, weakness, N, V, D, bladder and bowel problems, leg swelling, No sick contacts or travel. No new changes in medications. Allergies: None Past Medical History: Endometrial CA, last chemo Dec 04, 2018, HTN, fibromyalgia, arthritis, left knee replacement and hysterectomy in 2019 Social history: Lives with family. Smokes 3 cigarettes a day. No ETOH or drug use. Surgical history: Left knee replacement and Hysterectomy. Meds: as documented in EMR PMD: Vahid Rubi 12/16/19 12:54 12/16/19 13:09 Past History - Medical History Allergies/Adverse Reactions: Allergies Allergy/AdvReac Type Severity Reaction Status Date / Time No Known Allergies Allergy Verified 12/16/19 12:32 Home Medications: Ambulatory Orders Amlodipine Besylate 10 mg PO DAILY #0 07/15/18 Gabapentin [Neurontin -] 300 mg PO Q8H PRN 07/15/18 Hydrochlorothiazide [Hctz -] 25 mg PO DAILY 07/15/18 Metoprolol Succinate 25 mg PO DAILY 07/15/18 Sennosides/Docusate Sodium [Pericolace -] 2 tablet PO BID tablet 02/23/19 oxyCODONE HCL [Roxicodone -] 5 mg PO Q6H PRN #12 tablet MDD 4 02/23/19 Cephalexin Monohydrate [Keflex -] 500 mg PO BID #14 capsule 12/16/19 Cancer: Yes (ENDOMETRIAL CA, LAST CHEMO DEC 04, 2018) COPD: No HTN: Yes - Immunization History Immunization Up to Date: Yes - Psycho-Social/Smoking History Smoking History: Current every day smoker Have you smoked in the past 12 months: Yes Number of Cigarettes Smoked Daily: 5 If you are a former smoker, when did you quit?: 2 WEEKS AGO 'Breaking Loose' booklet given: 07/15/18 Review of Systems - Review of Systems Able to Perform ROS?: Yes Comments:: 12/16/19 12:54 GENERAL/CONSTITUTIONAL: No fever or chills. No weakness. no sweats. HEAD, EYES, EARS, NOSE AND THROAT: No change in vision or hearing. No ear pain or discharge. No sore throat or mouth pain. No difficulty swallowing. No congestion. CARDIOVASCULAR: No chest pain or palpitations, syncope or edema. RESPIRATORY: No SOB, cough, wheezing, or hemoptysis. GASTROINTESTINAL No nausea/vomiting. No diarrhea or constipation. No bloody stools. GENITOURINARY: No hematuria, dysuria, frequency, urgency or other changes. MUSCULOSKELETAL: No joint or muscle swelling or pain. No decreased range of mo tion. No neck or back pain. SKIN: No rash or changes in skin color or lesions. No wounds. NEUROLOGIC: alert and oriented appropriately No headache, dizziness, loss of consciousness, or change in strength/sensation. No gait instability. HEMATOLOGIC/LYMPHATIC: No anemia, easy bruising/bleeding, or history of blood clots. No swollen lymph nodes ALLERGIC/IMMUNOLOGIC: No allergies PSYCH: no anxiety/depression All other systems reviewed and negative, or as documented in HPI. *Physical Exam - Physical Exam 12/16/19 12:56 General: awake and alert, NAD. HEENT: NCAT, PERRL, EOMI, clear conjunctiva, anicteric, moist mucous membranes, clear oropharynx, no oral lesions.. Neck: neck supple, FROM Resp: CTAB, normal and even respirations, no respiratory distress CVS: +Tachycardic. no murmurs, 2+ peripheral pulses throughout, no peripheral edema Chest: right anterior chest port in place Abdomen: +diffuse, primarily middle abdominal tenderness. +voluntar guarding, no rebound. No CVAT. no molina's sign, no mcburney's point tenderness Back: nontender, normal inspection and ROM] MSK: no edema, DAMICO x4, ROM intact. No clubbing or cyanosis. normal bulk and tone. Extremities: no calf tenderness Neuro: alert, oriented appropriately; no focal neurologic deficits Skin: warm and well perfused, cap refill <2 sec, normal color 12/16/19 13:08 12/16/19 18:11 ED Treatment Course - LABORATORY CBC & Chemistry Diagram: 12/16/19 13:50 12/16/19 13:50 Medical Decision Making - Medical Decision Making 12/16/19 13:08 Vital Signs Temp Pulse Resp BP Pulse Ox 97.6 F 114 H 18 189/101 H 94 L 12/16/19 12:27 12/16/19 12:27 12/16/19 12:27 12/16/19 12:27 12/16/19 12:27 DDx abdominal pain: Renal colic, biliary colic, metabolic/electrolyte derangements. GERD, PUD, esophageal spasm, pancreatitis, hepatitis, constipation, colitis, gastroenteritis, cholecystitis, UTI, pyelonephritis, ileus, SBO, medication side effect, hernia, appendicitis, diverticulitis, mesenteric ischemia. msk strain, mesenteric adenitis, psoas abscess. - no GIB vitals with initial HTN, normalized. tachy resolved no fever, no systemic sx. labs and lytes wnl, reassuring normal lactic pending UA, and culture CT a/p to eval for intra abdominal pathology/infection, inflammation pain controlled with IVF, morphine, antiemetics s/o pending CT read and UA and call back to Dr Rubi 12/18/19 16:05 Discharge - Discharge Information Problems reviewed: Yes Clinical Impression/Diagnosis: Abdominal pain Qualifiers: Abdominal location: generalized Qualified Code(s): R10.84 - Generalized abdominal pain Condition: Stable - Additional Discharge Information Prescriptions: Cephalexin Monohydrate [Keflex -] 500 mg PO BID #14 capsule - Follow up/Referral Referrals: Elicia Redding MD [Primary Care Provider] - - Patient Discharge Instructions Patient Printed Discharge Instructions: DI for Abdominal Pain-Adult Additional Instructions: You were seen in the emergency department for abdominal pain. Your imaging showed increased swelling to abdominal lymph nodes. Please follow up with Dr. Rubi regarding your visit to the emergency department. If you experience profound abdominal pain please return to the emergency department or call 911. - Post Discharge Activity Vital Signs - Vital Signs Vital signs refused: No Pulse Rate: 98 Respiratory Rate: 18 Blood Pressure: 150/86 BP Location: Left Arm Blood Pressure position: Sitting
[2019-12-16] MEDS ORDERED: morphine SULFATE 4 MG/ML VIAL ONE (13:59)
[2019-12-16 14:11] LABS: BASO % 1.4 % (0-2.0); EOS % 0.1 % (0-4.5); HEMATOCRIT 38.1 % (32.4-45.2); HEMOGLOBIN 12.4 GM/dL (10.7-15.3); LYMPH % 32.4 % (8-40); MCH 26.7 pg (25.7-33.7); MCHC 32.5 g/dl (32.0-36.0); MEAN CELL VOLUME 82.2 fl (80-96); MEAN PLT VOLUME 7.8 fl (7.5-11.1); MONO % 9.1 % (3.8-10.2); PLATELET COUNT 260 K/MM3 (134-434); RBC 4.64 M/mm3 (3.60-5.2); RDW 17.6 % (11.6-15.6); WHITE BLOOD COUNT 7.3 K/mm3 (4.0-10.0)
[2019-12-16 14:17] LABS: INR 1.13 (0.83-1.09); PROTHROMBIN TIME (PATIENT) 13.8 SEC (9.7-13.0)
[2019-12-16 14:34] LABS: POTASSIUM 3.8 mmol/L (3.5-5.1)
[2019-12-16 14:46] LABS: ALBUMIN 3.1 g/dl (3.4-5.0); BILIRUBIN,TOTAL 0.8 mg/dL (0.2-1); BLOOD UREA NITROGEN 16.2 mg/dL (7-18); CALCIUM 8.5 mg/dL (8.5-10.1); CREATININE 0.9 mg/dL (0.55-1.3); TOT PROT 6.8 g/dl (6.4-8.2)
[2019-12-16] MEDS ORDERED: FAMOTIDINE 20 MG/50 ML IVPB 20 MG/50 ML MG IVPB ONE ×2 (14:53→18:44)
--- NOTE | 2019-12-16 19:36 | PDOC ---
*Physical Exam - Vital Signs Last Vital Signs Temp Pulse Resp BP Pulse Ox 97.6 F 98 H 18 150/86 94 L 12/16/19 12:27 12/16/19 18:11 12/16/19 18:11 12/16/19 18:11 12/16/19 12:27 ED Treatment Course - LABORATORY CBC & Chemistry Diagram: 12/16/19 13:50 12/16/19 13:50 - ADDITIONAL ORDERS Additional order review: Laboratory Results 12/16/19 12/16/19 12/16/19 13:50 13:50 13:50 PT with INR 13.80 H INR 1.13 H PTT (Actin FS) 33.0 Sodium 140 Potassium 3.8 Chloride 105 Carbon Dioxide 31 Anion Gap 5 L BUN 16.2 Creatinine 0.9 Est GFR (CKD-EPI)AfAm 76.68 Est GFR (CKD-EPI)NonAf 66.16 Random Glucose 204 H Lactic Acid 1.7 Calcium 8.5 Total Bilirubin 0.8 AST 30 ALT 32 Alkaline Phosphatase 86 Total Protein 6.8 Albumin 3.1 L Lipase 45 L 12/16/19 13:50 RBC 4.64 MCV 82.2 MCHC 32.5 RDW 17.6 H MPV 7.8 Neutrophils % 57.0 Lymphocytes % 32.4 Monocytes % 9.1 Eosinophils % 0.1 D Basophils % 1.4 - Medications Given in the ED: ED Medications Discontinued Medications Generic Name Dose Route Start Last Admin Trade Name Freq PRN Reason Stop Dose Admin Famotidine/Sodium Chloride 20 mg in 50 mls @ 100 mls/hr 12/16/19 14:53 12/16/19 18:45 Pepcid 20 Mg Premixed Ivpb - IVPB 12/16/19 15:22 100 mls/hr ONCE ONE Administration Morphine Sulfate 4 mg 12/16/19 12:42 12/16/19 14:12 Morphine Injection - IVPUSH 12/16/19 12:43 4 mg ONCE ONE Administration Ondansetron HCl 4 mg 12/16/19 12:42 12/16/19 14:12 Zofran Injection IVPUSH 12/16/19 12:43 4 mg ONCE ONE Administration Sodium Chloride 1,000 ml 12/16/19 12:42 12/16/19 14:12 Normal Saline - IV 12/16/19 12:43 1,000 ml ONCE ONE Administration Medical Decision Making - Medical Decision Making 12/16/19 19:54 69F with hx/o endometrial cancer s/p CHILANGO-SBO, last chemo treatment about 1 month ago presents to the ED with diffuse abdominal pain x3 days. -> Pending CT abdomen. Signed out from night team. 12/16/19 20:08 CT demonstrated increased LAD from previous CT, otherwise no acute pathology. UA showed WBCs, RBCs and blood. Labs otherwise wnl. Dr. Rubi was spoken to and stated that the pt was stable for d/c. Discharge - Discharge Information Problems reviewed: Yes Clinical Impression/Diagnosis: Abdominal pain Qualifiers: Abdominal location: generalized Qualified Code(s): R10.84 - Generalized abdominal pain Condition: Stable Disposition: HOME - Admission No - Follow up/Referral Referrals: Elicia Redding MD [Primary Care Provider] - - Patient Discharge Instructions Patient Printed Discharge Instructions: DI for Abdominal Pain-Adult Additional Instructions: You were seen in the emergency department for abdominal pain. Your imaging showed increased swelling to abdominal lymph nodes. Please follow up with Dr. Rubi regarding your visit to the emergency department. If you experience profound abdominal pain please return to the emergency department or call 911. - Post Discharge Activity
[2019-12-16 19:37] LABS: URINE APPEARANCE CLOUDY; URINE BILIRUBIN NEGATIVE (NEGATIVE); URINE COLOR ORANGE; URINE GLUCOSE (UA) NEGATIVE (NEGATIVE); URINE KETONE NEGATIVE (NEGATIVE); URINE NITRITE NEGATIVE (NEGATIVE); URINE PROTEIN 2+ (NEGATIVE); URINE UROBILINOGEN 0.2 mg/dL (0.2-1.0)
[2019-12-16 19:38] LABS: EPI CELLS 9.3 /uL (0-25.1); HYALINE CASTS 1.02 /uL (0-3.1); URINE BACTERIA 315.4 /uL (0-1359); URINE LEUK ESTERASE 1+ (NEGATIVE); URINE RBC 3423.7 /uL (0-23.9); URINE WBC 1012.7 /uL (0-25.8)
[2019-12-16] MEDS ORDERED: CEPHALEXIN MONOHYDRATE 500 MG CAPSULE (UD) PO ONE (20:22)
--- NOTE | 2019-12-16 20:32 | PDOC ---
*Physical Exam - Vital Signs Last Vital Signs Temp Pulse Resp BP Pulse Ox 97.6 F 98 H 18 150/86 94 L 12/16/19 12:27 12/16/19 18:11 12/16/19 18:11 12/16/19 18:11 12/16/19 12:27 ED Treatment Course - LABORATORY CBC & Chemistry Diagram: 12/16/19 13:50 12/16/19 13:50 - ADDITIONAL ORDERS Additional order review: Laboratory Results 12/16/19 12/16/19 12/16/19 18:00 13:50 13:50 PT with INR 13.80 H INR 1.13 H PTT (Actin FS) 33.0 Sodium Potassium Chloride Carbon Dioxide Anion Gap BUN Creatinine Est GFR (CKD-EPI)AfAm Est GFR (CKD-EPI)NonAf Random Glucose Lactic Acid 1.7 Calcium Total Bilirubin AST ALT Alkaline Phosphatase Total Protein Albumin Lipase Urine Color [place] Urine Appearance Cloudy Urine pH 5.0 Ur Specific Bear 1.058 H Urine Protein 2+ H Urine Glucose (UA) Negative Urine Ketones Negative Urine Blood 3+ H Urine Nitrite Negative Urine Bilirubin Negative Urine Urobilinogen 0.2 Ur Leukocyte Esterase 1+ H Urine WBC (Auto) 1012.7 Urine RBC (Auto) 3423.7 Urine Casts (Auto) 1.02 U Epithel Cells (Auto) 9.3 Urine Bacteria (Auto) 315.4 12/16/19 13:50 PT with INR INR PTT (Actin FS) Sodium 140 Potassium 3.8 Chloride 105 Carbon Dioxide 31 Anion Gap 5 L BUN 16.2 Creatinine 0.9 Est GFR (CKD-EPI)AfAm 76.68 Est GFR (CKD-EPI)NonAf 66.16 Random Glucose 204 H Lactic Acid Calcium 8.5 Total Bilirubin 0.8 AST 30 ALT 32 Alkaline Phosphatase 86 Total Protein 6.8 Albumin 3.1 L Lipase 45 L Urine Color Urine Appearance Urine pH Ur Specific Bear Urine Protein Urine Glucose (UA) Urine Ketones Urine Blood Urine Nitrite Urine Bilirubin Urine Urobilinogen Ur Leukocyte Esterase Urine WBC (Auto) Urine RBC (Auto) Urine Casts (Auto) U Epithel Cells (Auto) Urine Bacteria (Auto) 12/16/19 13:50 RBC 4.64 MCV 82.2 MCHC 32.5 RDW 17.6 H MPV 7.8 Neutrophils % 57.0 Lymphocytes % 32.4 Monocytes % 9.1 Eosinophils % 0.1 D Basophils % 1.4 - Medications Given in the ED: ED Medications Discontinued Medications Generic Name Dose Route Start Last Admin Trade Name Desiree PRN Reason Stop Dose Admin Famotidine/Sodium Chloride 20 mg in 50 mls @ 100 mls/hr 12/16/19 14:53 12/16/19 18:45 Pepcid 20 Mg Premixed Ivpb - IVPB 12/16/19 15:22 100 mls/hr ONCE ONE Administration Morphine Sulfate 4 mg 12/16/19 12:42 12/16/19 14:12 Morphine Injection - IVPUSH 12/16/19 12:43 4 mg ONCE ONE Administration Ondansetron HCl 4 mg 12/16/19 12:42 12/16/19 14:12 Zofran Injection IVPUSH 12/16/19 12:43 4 mg ONCE ONE Administration Sodium Chloride 1,000 ml 12/16/19 12:42 12/16/19 14:12 Normal Saline - IV 12/16/19 12:43 1,000 ml ONCE ONE Administration Medical Decision Making - Medical Decision Making 12/16/19 19:54 69F with hx/o endometrial cancer s/p CHILANGO-SBO, last chemo treatment about 1 month ago presents to the ED with diffuse abdominal pain x3 days. -> Pending CT abdomen. Signed out from night team. 12/16/19 20:08 CT demonstrated increased LAD from previous CT, otherwise no acute pathology. UA showed WBCs, RBCs and blood, some bacteria, could be suggestive of UTI. Antibiotics were sent to pt's preferred pharmacy. 12/16/19 20:[address] Rubi while she was seeing the pt at bedside, and Dr. Rubi requested discharge from the ED after speaking about the CT abd/pelvis results and labs. She advised pt to f/u with her outpatient. The pt did not receive EKG and troponin prior to discharge. The patient was discharged without informing the ED attending, Dr. Whatley, otherwise EKG and troponin would have been completed prior to discharge. Attempt was made to call pt and inform her of antibiotics sent to pharmacy, but did not answer. Discharge - Discharge Information Clinical Impression/Diagnosis: Abdominal pain Qualifiers: Abdominal location: generalized Qualified Code(s): R10.84 - Generalized abdominal pain Condition: Stable Disposition: HOME - Additional Discharge Information Prescriptions: Cephalexin Monohydrate [Keflex -] 500 mg PO BID #14 capsule - Follow up/Referral Referrals: Elicia Redding MD [Primary Care Provider] - - Patient Discharge Instructions Patient Printed Discharge Instructions: DI for Abdominal Pain-Adult Additional Instructions: You were seen in the emergency department for abdominal pain. Your imaging showed increased swelling to abdominal lymph nodes. Please follow up with Dr. Rubi regarding your visit to the emergency department. If you experience profound abdominal pain please return to the emergency department or call 911. - Post Discharge Activity
[2019-12-18 16:06] VITALS: BP 150/86; PULSE 98
== END 2019-12-16 20:55 | disposition home or self-care (01) ==
LOC: JER 12:12
PROC: 3E033NZ Introduction of Analgesics, Hypnotics, Sedatives into Peripheral Vein, Percutaneous Approach (ICD-10-PCS; principal; 2019-12-16)
PROC: 3E033GC Introduction of Other Therapeutic Substance into Peripheral Vein, Percutaneous Approach (ICD-10-PCS; 2019-12-16)
DX: R10.84 Generalized abdominal pain (principal)
CPT/HCPCS: 36415; 74177-TC; 80053; 81003; 83605; 83690; 85025; 85610; 85730; 87086; 99285-25; Q9967

== ENCOUNTER 2020-01-13 11:44 | Inpatient (IN) | payer OTHER ==
[2020-01-13] MEDS ORDERED: morphine CARPU-JECT 2 MG/1 ML DISP.SYRIN IVPUSH ONE (14:03)
[2020-01-13] MEDS ORDERED: MORPHINE SULFATE 2 MG/ML VIAL ONE (14:32)
[2020-01-13 14:51] LABS: BASO % 1.3 % (0-2.0); EOS % 0.2 % (0-4.5); HEMOGLOBIN 13.1 GM/dL (10.7-15.3); LYMPH % 29.7 % (8-40); MCH 26.2 pg (25.7-33.7); MCHC 32.7 g/dl (32.0-36.0); MEAN CELL VOLUME 80.1 fl (80-96); MEAN PLT VOLUME 7.4 fl (7.5-11.1); MONO % 7.5 % (3.8-10.2); NEUT % 61.3 % (42.8-82.8); PLATELET COUNT 277 K/MM3 (134-434); RBC 4.99 M/mm3 (3.60-5.2); RDW 16.4 % (11.6-15.6); WHITE BLOOD COUNT 7.2 K/mm3 (4.0-10.0)
[2020-01-13 15:19] LABS: POTASSIUM 3.8 mmol/L (3.5-5.1)
[2020-01-13 15:21] LABS: ALBUMIN 2.8 g/dl (3.4-5.0); BLOOD UREA NITROGEN 15.7 mg/dL (7-18)
[2020-01-13 15:25] LABS: CREATININE 1.2 mg/dL (0.55-1.3)
[2020-01-13 15:26] LABS: BILIRUBIN,TOTAL 1.2 mg/dL (0.2-1); TOT PROT 7.1 g/dl (6.4-8.2)
[2020-01-13] MEDS ORDERED: morphine CARPU-JECT 4 MG/1 ML DISP.SYRIN IVPUSH ONE (16:32)
[2020-01-13] MEDS ORDERED: morphine SULFATE 4 MG/ML VIAL ONE (18:22)
[2020-01-13] MEDS ORDERED: MORPHINE SULFATE 2 MG/ML VIAL IVPUSH PRN (21:37)
[2020-01-13] MEDS ORDERED: LIDOCAINE 5% TOPICAL PATCH TP PRN (21:41)
[2020-01-14] MEDS: oxyCODONE HCL 5 MG TABLET PO PRN ×3 (02:37→18:03)
[2020-01-14 02:53] VITALS: BMI 45.8
[2020-01-14 08:14] LABS: BASO % 1.2 % (0-2.0); EOS % 0.1 % (0-4.5); HEMATOCRIT 37.3 % (32.4-45.2); LYMPH % 31.5 % (8-40); MCH 25.9 pg (25.7-33.7); MCHC 32.2 g/dl (32.0-36.0); MEAN CELL VOLUME 80.3 fl (80-96); MEAN PLT VOLUME 7.7 fl (7.5-11.1); MONO % 10.4 % (3.8-10.2); NEUT % 56.8 % (42.8-82.8); PLATELET COUNT 258 K/MM3 (134-434); RBC 4.64 M/mm3 (3.60-5.2); RDW 16.7 % (11.6-15.6); WHITE BLOOD COUNT 7.9 K/mm3 (4.0-10.0)
[2020-01-14 08:25] LABS: POTASSIUM 3.7 mmol/L (3.5-5.1)
[2020-01-14 08:27] LABS: CALCIUM 8.6 mg/dL (8.5-10.1)
[2020-01-14 08:28] LABS: ALBUMIN 2.7 g/dl (3.4-5.0); BLOOD UREA NITROGEN 19.8 mg/dL (7-18); MAGNESIUM 2.5 mg/dL (1.8-2.4)
[2020-01-14 08:31] LABS: CREATININE 1.8 mg/dL (0.55-1.3); PHOSPHOROUS 5.5 mg/dL (2.5-4.9)
[2020-01-14 09:19] LABS: BILIRUBIN,TOTAL 1.2 mg/dL (0.2-1)
[2020-01-14] MEDS ORDERED: PT OWN MED DRAWER 7, Y5N ONE (09:44)
[2020-01-14] MEDS: DOCUSATE SODIUM 100 MG CAPSULE (FP) PO SCH (09:47)
[2020-01-14] MEDS ORDERED: ENOXAPARIN NA (PORCINE) 40 MG/0.4 ML DISP.SYRIN SQ SCH ×3 (10:00)
[2020-01-14 12:13] LABS: TOT PROT 6.7 g/dl (6.4-8.2)
[2020-01-14] MEDS: SODIUM CHLORIDE 1,000 ML IV SCH (13:55)
[2020-01-14] MEDS: NYSTATIN POWDER 100,000 UNITS/GM - 15 GM TOPICAL POWDER TP SCH (13:56)
[2020-01-14] MEDS ORDERED: oxyCODONE HCL 5 MG TABLET PO PRN (14:07)
[2020-01-14] MEDS: HEPARIN NA (PORCINE) 5,000 UNITS/ML 1ML VIAL SQ SCH ×3 (14:15→22:38)
[2020-01-14 19:12] LABS: EPI CELLS 14 /uL (0-25.1); HYALINE CASTS 14 /uL (0-3.1); PH,URINE 5.5 (5.0-8.0); URINE APPEARANCE CLOUDY; URINE BACTERIA 240 /uL (0-1359); URINE BILIRUBIN NEGATIVE (NEGATIVE); URINE COLOR DK YELLOW; URINE GLUCOSE (UA) NEGATIVE (NEGATIVE); URINE KETONE NEGATIVE (NEGATIVE); URINE LEUK ESTERASE 3+ (NEGATIVE); URINE NITRITE NEGATIVE (NEGATIVE); URINE PROTEIN 1+ (NEGATIVE); URINE RBC 392 /uL (0-23.9); URINE WBC 665 /uL (0-25.8)
[2020-01-14] MEDS: LIDOCAINE PATCH REMOVAL MC SCH ×2 (20:01→23:03)
[2020-01-14] MEDS: SENNOSIDES 8.6MG TABLET (FP) PO SCH ×2 (20:39→23:03)
[2020-01-15] MEDS: HEPARIN NA (PORCINE) 5,000 UNITS/ML 1ML VIAL SQ SCH ×3 (05:46→21:17)
[2020-01-15 08:20] LABS: BASO % 0.7 % (0-2.0); EOS % 0.1 % (0-4.5); HEMATOCRIT 34.1 % (32.4-45.2); HEMOGLOBIN 11.1 GM/dL (10.7-15.3); LYMPH % 38.8 % (8-40); MCH 26.2 pg (25.7-33.7); MCHC 32.5 g/dl (32.0-36.0); MEAN CELL VOLUME 80.5 fl (80-96); MEAN PLT VOLUME 7.9 fl (7.5-11.1); MONO % 10.6 % (3.8-10.2); NEUT % 49.8 % (42.8-82.8); PLATELET COUNT 246 K/MM3 (134-434); RBC 4.23 M/mm3 (3.60-5.2); RDW 16.7 % (11.6-15.6); WHITE BLOOD COUNT 4.9 K/mm3 (4.0-10.0)
[2020-01-15 08:28] LABS: POTASSIUM 3.9 mmol/L (3.5-5.1)
[2020-01-15 08:30] LABS: BLOOD UREA NITROGEN 17.2 mg/dL (7-18); CALCIUM 7.8 mg/dL (8.5-10.1)
[2020-01-15 08:31] LABS: ALBUMIN 2.4 g/dl (3.4-5.0)
[2020-01-15 08:34] LABS: CREATININE 1.1 mg/dL (0.55-1.3)
[2020-01-15 08:35] LABS: BILIRUBIN,TOTAL 1.1 mg/dL (0.2-1); TOT PROT 6.1 g/dl (6.4-8.2)
[2020-01-15] MEDS ORDERED: PT OWN MED DRAWER 7, Y5N ONE (09:29)
[2020-01-15] MEDS: NYSTATIN POWDER 100,000 UNITS/GM - 15 GM TOPICAL POWDER TP SCH (09:34)
[2020-01-15] MEDS: DOCUSATE SODIUM 100 MG CAPSULE (FP) PO SCH (09:34)
[2020-01-15] MEDS: POLYETHYLENE GLYCOL 3350 119 GM BTL PO SCH ×2 (09:34→21:17)
[2020-01-15] MEDS: oxyCODONE HCL 5 MG TABLET PO PRN ×4 (09:42→22:36)
[2020-01-15] MEDS ORDERED: GLYCERIN 1 RECTAL SUPPOSITORY, ADULT RC ONE (10:38)
[2020-01-15] MEDS ORDERED: fentaNYL 12mcg/hr PATCH.TD72 TD ONE (15:24)
[2020-01-15] MEDS ORDERED: FENTANYL PATCH WASTE TD PRN (15:24)
[2020-01-15] MEDS: SODIUM CHLORIDE 1,000 ML IV SCH (15:45)
[2020-01-15] MEDS: SENNOSIDES 8.6MG TABLET (FP) PO SCH (21:17)
[2020-01-15] MEDS: LIDOCAINE PATCH REMOVAL MC SCH (21:17)
[2020-01-16] MEDS: oxyCODONE HCL 5 MG TABLET PO PRN ×2 (04:34→09:01)
[2020-01-16] MEDS: HEPARIN NA (PORCINE) 5,000 UNITS/ML 1ML VIAL SQ SCH (06:45)
[2020-01-16 07:00] VITALS: BP 128/92; PULSE 96; TEMP 98.2
[2020-01-16] MEDS: NYSTATIN POWDER 100,000 UNITS/GM - 15 GM TOPICAL POWDER TP SCH (09:05)
[2020-01-16] MEDS: POLYETHYLENE GLYCOL 3350 119 GM BTL PO SCH (09:45)
[2020-01-16] MEDS: DOCUSATE SODIUM 100 MG CAPSULE (FP) PO SCH (09:46)
== END 2020-01-16 11:34 | disposition home health service (06) | DRG 543 ==
LOC: JER 11:44 → JERBED 19:07 → J8W 01-14 01:11
PROVIDERS: ADMIT Internal Medicine; ATTEND Internal Medicine
DX: C79.51 Secondary malignant neoplasm of bone (principal); Z68.42 Body mass index [BMI] 45.0-49.9, adult; N17.9 Acute kidney failure, unspecified; E88.09 Other disorders of plasma-protein metabolism, not elsewhere classified; E66.01 Morbid (severe) obesity due to excess calories; C54.1 Malignant neoplasm of endometrium; B37.2 Candidiasis of skin and nail; I10 Essential (primary) hypertension; F17.210 Nicotine dependence, cigarettes, uncomplicated
CPT/HCPCS: 36415; 71046-TC-FY; 72192-TC; 73523-TC-FY; 80053; 81003; 82565; 83735; 84100; 84300; 84540; 85025; 93005; 93010; 93971-TC; 97116-GP; 97161-GP; 99285-25; C9803; J1644; U0003

== ENCOUNTER 2020-03-02 07:11 | Day surgery (SDC) | payer OTHER ==
[2020-03-02] MEDS ORDERED: PEMBROLIZUMAB 200 MG in SODIUM CHLORIDE 50 ML IV ONE (10:00)
[2020-03-02 12:17] LABS: BASO % 0.9 % (0-2.0); EOS % 0.3 % (0-4.5); HEMATOCRIT 34.2 % (32.4-45.2); LYMPH % 17.9 % (8-40); MCH 26.2 pg (25.7-33.7); MEAN CELL VOLUME 81.9 fl (80-96); MEAN PLT VOLUME 7.9 fl (7.5-11.1); MONO % 5.9 % (3.8-10.2); PLATELET COUNT 330 K/MM3 (134-434); RBC 4.18 M/mm3 (3.60-5.2); RDW 18.1 % (11.6-15.6); WHITE BLOOD COUNT 7.6 K/mm3 (4.0-10.0)
[2020-03-02 12:41] LABS: CALCIUM 8.7 mg/dL (8.5-10.1)
[2020-03-02 12:42] LABS: ALBUMIN 2.8 g/dl (3.4-5.0)
[2020-03-02 12:47] LABS: BILIRUBIN,TOTAL 0.8 mg/dL (0.2-1); TOT PROT 7.3 g/dl (6.4-8.2)
[2020-03-02] MEDS ORDERED: DENOSUMAB 120 MG/1.7 ML VIAL SQ ONE (14:00)
[2020-03-02 15:40] VITALS: BP 115/67; PULSE 89; TEMP 97.6
== END 2020-03-02 14:25 | disposition home or self-care (01) ==
LOC: JONCCHEMO 07:11
PROVIDERS: ATTEND Internal Medicine Hematology & Oncology
PROC: 3E04305 Introduction of Other Antineoplastic into Central Vein, Percutaneous Approach (ICD-10-PCS; principal; 2020-03-02)
PROC: 3E013GC Introduction of Other Therapeutic Substance into Subcutaneous Tissue, Percutaneous Approach (ICD-10-PCS; 2020-03-02)
DX: Z51.11 Encounter for antineoplastic chemotherapy (principal); C54.1 Malignant neoplasm of endometrium; C78.00 Secondary malignant neoplasm of unspecified lung; D64.9 Anemia, unspecified
CPT/HCPCS: 36415; 80053; 84439; 84443; 85025; 86304; 96372; 96413; J0897; J9271

== ENCOUNTER 2020-03-23 07:29 | Day surgery (SDC) | payer OTHER ==
[2020-03-23] MEDS ORDERED: PEMBROLIZUMAB 200 MG in SODIUM CHLORIDE 50 ML IV ONE (10:00)
[2020-03-23 11:45] LABS: BASO % 1.2 % (0-2.0); EOS % 0.8 % (0-4.5); HEMATOCRIT 34.1 % (32.4-45.2); LYMPH % 26.5 % (8-40); MCH 25.6 pg (25.7-33.7); MCHC 32.1 g/dl (32.0-36.0); MEAN CELL VOLUME 79.7 fl (80-96); MEAN PLT VOLUME 7.9 fl (7.5-11.1); MONO % 6.3 % (3.8-10.2); NEUT % 65.2 % (42.8-82.8); PLATELET COUNT 353 K/MM3 (134-434); RBC 4.28 M/mm3 (3.60-5.2); RDW 18.3 % (11.6-15.6); WHITE BLOOD COUNT 6.9 K/mm3 (4.0-10.0)
[2020-03-23 12:10] LABS: POTASSIUM 3.9 mmol/L (3.5-5.1)
[2020-03-23 12:18] LABS: CALCIUM 8.5 mg/dL (8.5-10.1)
[2020-03-23 12:19] LABS: ALBUMIN 2.7 g/dl (3.4-5.0); BLOOD UREA NITROGEN 11.5 mg/dL (7-18)
[2020-03-23 12:23] LABS: BILIRUBIN,TOTAL 0.6 mg/dL (0.2-1); TOT PROT 7.6 g/dl (6.4-8.2)
[2020-03-23 15:45] VITALS: TEMP 98.3
[2020-03-23 16:03] VITALS: BP 109/65; PULSE 110
== END 2020-03-23 14:00 | disposition home or self-care (01) ==
LOC: JONCCHEMO 07:29
PROVIDERS: ATTEND Internal Medicine Hematology & Oncology
DX: Z51.11 Encounter for antineoplastic chemotherapy (principal); C54.1 Malignant neoplasm of endometrium; C78.00 Secondary malignant neoplasm of unspecified lung; D64.9 Anemia, unspecified
CPT/HCPCS: 36415; 80053; 85025; 86304; 96413; J9271

== ENCOUNTER 2020-04-20 07:22 | Day surgery (SDC) | payer OTHER ==
[~2020-04-20 07:22] MED LIST changes: -DEXAMETHASONE SODIUM PHOSPHATE 10 MG in SODIUM CHLORIDE 50 ML IVPB ONE; -GEMCITABINE HCL 1,672 MG in SODIUM CHLORIDE 250 ML IV ONE; -PALONOSETRON HCL 0.25 MG/5 ML VIAL IVPUSH ONE; +PEMBROLIZUMAB 200 MG in SODIUM CHLORIDE 50 ML IV ONE
[2020-04-20 11:10] LABS: BASO % 0.9 % (0-2.0); EOS % 0.3 % (0-4.5); HEMATOCRIT 34.1 % (32.4-45.2); HEMOGLOBIN 11.1 GM/dL (10.7-15.3); LYMPH % 21.5 % (8-40); MCHC 32.5 g/dl (32.0-36.0); MEAN PLT VOLUME 7.5 fl (7.5-11.1); MONO % 5.7 % (3.8-10.2); NEUT % 71.6 % (42.8-82.8); PLATELET COUNT 486 K/MM3 (134-434); RBC 4.44 M/mm3 (3.60-5.2); RDW 18.3 % (11.6-15.6); WHITE BLOOD COUNT 8.4 K/mm3 (4.0-10.0)
[2020-04-20 11:21] LABS: POTASSIUM 3.9 mmol/L (3.5-5.1)
[2020-04-20 11:23] LABS: CALCIUM 7.6 mg/dL (8.5-10.1)
[2020-04-20 11:24] LABS: ALBUMIN 2.6 g/dl (3.4-5.0); BLOOD UREA NITROGEN 9.6 mg/dL (7-18)
[2020-04-20 11:28] LABS: BILIRUBIN,TOTAL 0.7 mg/dL (0.2-1); TOT PROT 7.9 g/dl (6.4-8.2)
[2020-04-20] MEDS ORDERED: PEMBROLIZUMAB 200 MG in SODIUM CHLORIDE 50 ML IV ONE (12:45)
[2020-04-20] MEDS ORDERED: DENOSUMAB 120 MG/1.7 ML VIAL SQ ONE (13:00)
[2020-04-20] MEDS ORDERED: PORTA CATH FLUSH 10 ML IVPUSH ONE (18:16)
[2020-04-20 18:17] VITALS: BP 140/74; PULSE 103; TEMP 98.2
== END 2020-04-20 13:50 | disposition home or self-care (01) ==
LOC: JONCCHEMO 07:22
PROVIDERS: ATTEND Internal Medicine Hematology & Oncology
PROC: 3E04305 Introduction of Other Antineoplastic into Central Vein, Percutaneous Approach (ICD-10-PCS; principal; 2020-04-20)
PROC: 3E013GC Introduction of Other Therapeutic Substance into Subcutaneous Tissue, Percutaneous Approach (ICD-10-PCS; 2020-04-20)
DX: Z51.11 Encounter for antineoplastic chemotherapy (principal); C54.1 Malignant neoplasm of endometrium; C78.00 Secondary malignant neoplasm of unspecified lung; D64.9 Anemia, unspecified
CPT/HCPCS: 36415; 80053; 85025; 86304; 96372; 96413; J0897; J9271

== ENCOUNTER 2020-05-11 07:32 | Day surgery (SDC) | payer OTHER ==
[2020-05-11 10:56] LABS: BASO % 0.9 % (0-2.0); EOS % 0.1 % (0-4.5); HEMATOCRIT 30.2 % (32.4-45.2); HEMOGLOBIN 9.6 GM/dL (10.7-15.3); LYMPH % 25.5 % (8-40); MCH 24.4 pg (25.7-33.7); MCHC 31.8 g/dl (32.0-36.0); MEAN CELL VOLUME 76.8 fl (80-96); MEAN PLT VOLUME 7.4 fl (7.5-11.1); MONO % 6.9 % (3.8-10.2); NEUT % 66.6 % (42.8-82.8); PLATELET COUNT 442 K/MM3 (134-434); RBC 3.93 M/mm3 (3.60-5.2); RDW 18.8 % (11.6-15.6); WHITE BLOOD COUNT 8.8 K/mm3 (4.0-10.0)
[2020-05-11] MEDS ORDERED: ACETAMINOPHEN 325 MG TABLET (FP) PO ONE (11:00)
[2020-05-11] MEDS ORDERED: DIPHENHYDRAMINE 25 MG in SODIUM CHLORIDE 50 ML IVPB ONE (11:00)
[2020-05-11] MEDS ORDERED: PEMBROLIZUMAB 200 MG in SODIUM CHLORIDE 50 ML IV ONE (11:00)
[2020-05-11] MEDS ORDERED: NIVOLUMAB IVPB ONE (11:30)
[2020-05-11] MEDS ORDERED: SODIUM CHLORIDE IVPB ONE (11:30)
[2020-05-11 11:36] LABS: POTASSIUM 3.7 mmol/L (3.5-5.1)
[2020-05-11 11:37] LABS: ALBUMIN 2.4 g/dl (3.4-5.0); CALCIUM 8.5 mg/dL (8.5-10.1)
[2020-05-11 11:39] LABS: BLOOD UREA NITROGEN 10.8 mg/dL (7-18)
[2020-05-11 11:42] LABS: CREATININE 0.8 mg/dL (0.55-1.3)
[2020-05-11 11:43] LABS: BILIRUBIN,TOTAL 0.5 mg/dL (0.2-1); TOT PROT 7.5 g/dl (6.4-8.2)
[2020-05-11 16:31] VITALS: TEMP 97.9
[2020-05-11 16:35] VITALS: BP 126/91; PULSE 102
== END 2020-05-11 13:00 | disposition home or self-care (01) ==
LOC: JONCCHEMO 07:32
PROVIDERS: ATTEND Internal Medicine Hematology & Oncology
DX: Z51.11 Encounter for antineoplastic chemotherapy (principal); C54.1 Malignant neoplasm of endometrium; C78.00 Secondary malignant neoplasm of unspecified lung; D64.9 Anemia, unspecified
CPT/HCPCS: 36415; 80053; 84439; 84443; 85025; 86304; 96413; J9271

== ENCOUNTER 2020-06-09 08:08 | Day surgery (SDC) | payer OTHER ==
[2020-06-09] MEDS ORDERED: DENOSUMAB 120 MG/1.7 ML VIAL SQ ONE (10:00)
[2020-06-09] MEDS ORDERED: oxyCODONE HCL 5 MG TABLET PO ONE (11:04)
[2020-06-09] MEDS ORDERED: FENTANYL PATCH WASTE MC PRN (11:05)
[2020-06-09] MEDS ORDERED: fentaNYL 25mcg/hr PATCH.TD72 TD SCH (11:15)
[2020-06-09] MEDS ORDERED: SODIUM CHLORIDE 500 ML IV STA (11:23)
[2020-06-09] MEDS ORDERED: CYANOCOBALAMIN (VITAMIN B-12) 1000 MCG/1 ML VIAL IM ONE (11:24)
[2020-06-09 11:35] LABS: BASO % 0.9 % (0-2.0); HEMATOCRIT 28.2 % (32.4-45.2); LYMPH % 24.4 % (8-40); MCH 23.5 pg (25.7-33.7); MCHC 31.9 g/dl (32.0-36.0); MEAN CELL VOLUME 73.8 fl (80-96); MEAN PLT VOLUME 7.3 fl (7.5-11.1); MONO % 8.4 % (3.8-10.2); NEUT % 66.3 % (42.8-82.8); PLATELET COUNT 379 K/MM3 (134-434); RBC 3.82 M/mm3 (3.60-5.2); RDW 19.4 % (11.6-15.6); WHITE BLOOD COUNT 8.5 K/mm3 (4.0-10.0)
[2020-06-09 11:53] LABS: POTASSIUM 3.8 mmol/L (3.5-5.1)
[2020-06-09 11:54] LABS: ALBUMIN 2.2 g/dl (3.4-5.0); BLOOD UREA NITROGEN 14.1 mg/dL (7-18); CALCIUM 8.1 mg/dL (8.5-10.1)
[2020-06-09 12:00] LABS: CREATININE 1.1 mg/dL (0.55-1.3)
[2020-06-09] MEDS ORDERED: PALONOSETRON HCL 0.25 MG/5 ML VIAL IVPUSH ONE (12:00)
[2020-06-09] MEDS ORDERED: DEXAMETHASONE SODIUM PHOSPHATE 12 MG in SODIUM CHLORIDE 50 ML IVPB ONE (12:00)
[2020-06-09 12:01] LABS: BILIRUBIN,TOTAL 0.8 mg/dL (0.2-1); TOT PROT 7.2 g/dl (6.4-8.2)
[2020-06-09] MEDS ORDERED: PEMETREXED DISODIUM IVPB ONE (12:30)
[2020-06-09] MEDS ORDERED: SODIUM CHLORIDE IVPB ONE (12:30)
[2020-06-09] MEDS ORDERED: PEGFILGRASTIM (NEULASTA ONPRO) 6 MG/0.6 ML KIT SQ ONE (13:00)
[2020-06-09 16:42] VITALS: BP 132/70; PULSE 64; TEMP 97.9
== END 2020-06-09 15:30 | disposition home or self-care (01) ==
LOC: JONCCHEMO 08:08
PROVIDERS: ATTEND Internal Medicine Hematology & Oncology
DX: Z51.11 Encounter for antineoplastic chemotherapy (principal); C54.1 Malignant neoplasm of endometrium; C78.00 Secondary malignant neoplasm of unspecified lung
CPT/HCPCS: 36415; 80053; 85025; 86304; 96361; 96372; 96375; 96409; J0897; J2469; J2505; J9305